=== PATIENT | male | born 1985 | race Caucasian/White ===

== ENCOUNTER 2023-04-24 19:13 | Inpatient (IN) | payer OTHER, SELFPAY ==
[2023-04-24] VITALS (14 sets, daily range): BP systolic 120–128; BP diastolic 63–88; PULSE 113–125; RESP 20–30; TEMP 36.2–36.8; O2SAT 97–100; BMI 36.8; BMI 35.2
--- NOTE | 2023-04-24 19:25 | ED.NAVMDI1 ---
HPI - Nausea/Vomiting/Diarrhea General Chief complaint: Nausea/Vomiting/Diarrhea Stated complaint: vomiting Time Seen by Provider: 04/24/23 19:21 History of Present Illness HPI Narrative: This 38-year-old male who denies tobacco or alcohol use or NSAID use presents for evaluation of nausea and vomiting for the past 4 hours. The patient states that every time he tries to eat or drink anything he throws it up. He is vomiting of black liquid. He denies any dizziness or syncope. He is not having chest pain or shortness of breath. He denies any black tarry stools. EMS noted that the patient had coffee-ground emesis and upon arrival he has vomiting black liquid. He denies that he has eaten anything that is black. The patient states that he is a diabetic. Accu-Chek done by EMS was 129. The patient states he does not feel like he is in DKA and has not been in DKA in a long time. Patient's came to the emergency department and gives dish and all history. She states she talked to him around 11 AM and he stated that he was not feeling well. His vomiting started around 2 PM. His insulin pump stopped working earlier today. He also has a red, swollen and tender left great toe where he appears to have a paronychia that may be infected. The patient states that he cut the toenail back himself approx one week ago. He denies that it is tender. His [employer] is in [place]. Related Data Home Medications Medication Instructions Recorded Confirmed insulin aspart U-100 100 unit/mL See Rx Instructions continuous 04/24/23 04/24/23 subcutaneous solution (Novolog subcutaneous infusion Q6H U-100 Insulin aspart) hyperglycemia venlafaxine 75 mg capsule,extended 75 mg PO DAILY 04/24/23 04/24/23 release 24 hr Allergies Allergy/AdvReac Type Severity Reaction Status Date / Time No Known Drug Allergies Allergy Verified 04/24/23 19:27 Review of Systems ROS Status of ROS 10 or more systems reviewed and unremarkable except as noted in history and below [facility] Medical History (Updated 04/24/23 @ 22:42 by Sarah Beth Cardenas) Depression ?F32.A - Depression, unspecified (ICD-10) Type 1 diabetes mellitus ?E10.9 - Type 1 diabetes mellitus without complications (ICD-10) Social History (Updated 04/24/23 @ 22:48 by Sarah Beth Cardenas) Within the past year, how often did you have a drink containing alcohol: monthly or less Within the past year, how many standard drinks containing alcohol did you have on a typical day: 1 or 2 Within the past year, how often did you have six or more drinks on one occasion: never Total score: 0 Score interpretation: A score less than 4 is consistent with normal alcohol consumption. Smoking status: Never smoker Non-prescribed substance use: denies use Previous occupational history: [employer] Highest level of school completed/degree received: some college, no degree Are you now , , , , never or living with a partner: In a typical week, how many times do you talk on the telephone with family, friends, or neighbors: 3 or more times per week How often do you get together with friends or relatives: once per week How often do you attend adventist or gnosticism services: never Do you belong to any clubs or organizations such as adventist groups unions, [employer] or athletic groups, or school groups: no Total score: 2 Score interpretation: A score of greater than or equal to 2 indicates the lowest level of social isolation. Little interest or pleasure in doing things: not at all Feeling down, depressed, or hopeless: not at all Feel stressed/tense/nervous/anxious/difficulty sleeping: not at all Do you think of yourself as: straight/heterosexual Gender Identity: male Exam Narrative Exam Narrative: Nurses note and vital signs reviewed and patient is not hypoxic.His temperature is low at 97.1 and he is tachycardic at 113 General: Nontoxic but uncomfortable appearing male, he is actively vomiting with black and coffee ground emesis, no respiratory distress Skin: Warm, dry, no pallor noted. No rash noted. Head: Normocephalic, atraumatic Eye: Normal conjunctiva, no drainage, EOMI. PERRL. No scleral icterus. Ears, Nose, Mouth, and Throat; No swelling of the tongue, uvula or pharyngeal soft tissues Cardiovascular: Regular Rate and Rhythm Tachycardic at 113 upon arrival, pulses are brisk and equal bilaterally Respiratory: Patient is in no distress, no accessory muscle use, lungs are clear to auscultation, no wheezing, rales or rhonchi Back: non-tender, no CVA tenderness bilaterally to percussion. GI: Hyeractive bowel sounds with active vomiting of black liquid Musculoskeletal: The patient has no evidence of calf tenderness, no pitting edema, symmetrical pulses noted bilaterally, there is redness to the left medial great toe where the patient has cut his toenail back due to an ingrown toenail, There is no redness on the foot or lymphangitic streaks up the left leg Neurological: A&O x4, normal speech Psychiatric: Cooperative Constitutional Vital Signs, click to edit/add: Last Vital Signs Temp 98.2 F 04/24/23 21:51 Pulse 123 H 04/25/23 00:08 Resp 24 04/24/23 23:12 BP 124/72 04/24/23 23:41 Pulse Ox 97 04/24/23 23:12 O2 Del Method Room Air 04/24/23 23:12 Course Vital Signs Vital signs: Vital Signs Blood Pressure 120/88 04/24/23 19:15 Temperature 98.2 F 04/24/23 21:51 Pulse Rate 123 H 04/25/23 00:08 Respiratory Rate 04/24/23 23:12 Blood Pressure 124/72 04/24/23 23:41 Pulse Oximetry 97 04/24/23 23:12 Oxygen Delivery Method Room Air 04/24/23 23:12 MDM - Nausea/Vomiting/Diarrhea MDM Narrative Medical decision making narrative: This 38-year-old male who is an insulin-dependent diabetic presents for evaluation of 5 hours of nausea and vomiting. Upon arrival he was actively vomiting with black and coffee ground emesis. The patient's insulin pump stopped working earlier today according to the patient and his . An Accu-Chek done upon arrival was read as high. An IV was placed and he was medicated with IV fluids, Zofran and 40 mg of IV protonix. In reevaluation he was still vomiting. He has not had any chest pain or shortness of breath. He does have what appears to be a paronychia of the left great toe. There is no other sign of infection. He has a white count of 25. Normal hemoglobin. His pH is acidotic at 7.026. Glucose on the chemistry panel was 733. His bicarbonate is low at With an anion gap of 35. He has an acute kidney injury with a BUN of 7 and creatinine of 2.26 and elevated potassium at 6.7. He has a normal lipase.EKG is a sinus tachycardia at 114 bpm with mildly peaked T waves in leads V3 V4 V5 and V6. Troponin was normal at 9.9. He was started on an insulin drip and given copious IV fluids. He was medicated for the hyperkalemia with IV insulin, bicarbonate and calcium gluconate. At this time he will not be able to tolerate Kayexalate due to the nausea and vomiting. The patient has not had a fever or cough. He does have a paronychia of the left great toe that he states he has had for approximately one week. He cut the nail himself and it does appear to be mildly infected. He was given Unasyn for this infection. 2 sets of blood cultures are pending at this time. His nausea and vomiting improved prior to going to the ICU and he was able to tolerate ice chips The case was discussed with the hospitalist and he is accepted for admission to the ICU Lab Data Labs: Lab Results 04/24/23 Range/Units 19:30 WBC 25.5 H (4.0-11.0) 10^3/uL RBC 4.68 L (4.70-6.10) 10^6/uL Hgb 13.8 L (14.0-18.0) g/dL Hct 43.9 (42.0-54.0) % MCV 93.8 (80.0-94.0) fL MCH 29.5 (25.9-34.0) pg MCHC 31.4 (29.9-35.2) g/dL RDW 11.5 (11.0-15.0) % Plt Count 361 (150-450) 10^3/uL MPV 11.7 (9.5-13.5) fL Seg Neuts % (Manual) 81.0 Band Neutrophils % 3.0 (0-5) % Lymphocytes % (Manual) 5.0 L (20.5-60.0) % Atypical Lymphs % (Man) 2.0 % Monocytes % (Manual) 8.0 (1.7-12.0) % Eosinophils % (Manual) 0.0 L (0.9-7.0) % Basophils % (Manual) 0.0 L (0.2-2.0) % Promyelocytes % 1.0 Neutrophils # (Manual) 20.65 H (1.4-6.5) 10^3/uL Band Neutrophils # 0.8 H (0.0-0.3) 10^3/uL Lymphocytes # (Manual) 1.27 (1.20-3.80) 10^3/uL Abs Atypical Lymphs Man 0.51 Monocytes # (Manual) 2.04 H (0.30-0.80) 10^3/uL Eosinophils # (Manual) 0.00 (0.00-0.70) 10^3/uL Basophils # (Manual) 0.00 (0.00-0.10) 10^3/uL Promyelocytes # 0.25 VBG pH 7.026 L (7.330-7.430) VBG pCO2 34.9 L (40.0-52.0) mmHg Sodium 129 L (136-145) mmol/L Potassium 6.7 H* (3.5-5.1) mmol/L Chloride 90 L (98-107) mmol/L Carbon Dioxide 10.1 L (21.0-32.0) mmol/L Anion Gap 35.6 BUN 47.0 H (7.0-18.0) mg/dL Creatinine 2.26 H (0.70-1.30) mg/dL Est GFR ( Amer) 40 L (>=60) Est GFR (Non-Af Amer) 33 L (>=60) BUN/Creatinine Ratio 20.8 Glucose 733 H* (74-106) mg/dL Lactate 5.1 H* (0.4-2.0) mmol/L Calcium 9.9 (8.5-10.1) mg/dL Total Bilirubin 0.9 (0.2-1.0) mg/dL AST 26 (15-37) U/L ALT 44 (16-63) U/L Alkaline Phosphatase 106 (46-116) U/L Troponin I High Sens 9.9 (4.0-76.1) pg/mL Total Protein 7.7 (6.4-8.2) g/dL Albumin 3.8 (3.4-5.0) g/dL Globulin 3.9 g/dL Albumin/Globulin Ratio 1.0 Lipase 12.0 L (16.0-77.0) U/L Acetone, Qual Moderate A (NEGATIVE) ECG Data Attestation: I personally reviewed and interpreted this ECG as follows: (Sinus tachycardia at 114 beats for minute, normal axis, mildly peaked T waves noted mainly in V3 V4 V5 V6, normal axis, no acute ST segment elevation or T-wave inversion) Discharge Plan Discharge Chief Complaint: Nausea/Vomiting/Diarrhea Clinical Impression: Acute kidney injury, Paronychia due to ingrown nail, DKA (diabetic ketoacidosis), Hyperkalemia Patient Disposition: Admitted As Inpatient Time of Disposition Decision: 20:39 Discharge Date/Time: 04/24/23 21:40 Critical Care Time Critical Care Time Critical Care Time: Yes Total Critical Care Time: 45 Attestation: .
[2023-04-24] MEDS: 0.9 % SODIUM CHLORIDE 1,000 ML 1000 ML IV ×2 (19:36→20:40)
[2023-04-24] MEDS: ONDANSETRON PF 4 MG/2 ML VIAL IV ×2 (19:37→20:34)
[2023-04-24] MEDS: PANTOPRAZOLE SODIUM 40 MG VIAL IV (19:37)
[2023-04-24 19:53] LABS: PCO2 VBG 34.9 mmHg (40.0-52.0); pH VBG 7.026 (7.330-7.430)
--- NOTE | 2023-04-24 19:53 | XR_ITS ---
The [address] [address] Patient Name: OSCAR GAITAN MRN: [id number] date: 1985 Sex: M Assigned Patient Location: ICU Current Patient Location: ICU Accession/Order Number: [id number] Exam Date: 04/24/2023 21:30 Report Date: 04/24/2023 22:13 At the request of: DARWIN MARKER Procedure: XR acute abdomen series EXAM: XR acute abdomen series REASON FOR EXAM: Male, 38 years, DKA. TECHNIQUE: Supine and upright views of the abdomen and pelvis are performed, single frontal view of the chest is performed. COMPARISON: None. FINDINGS: The lungs are underinflated. There is crowding of the bronchovascular markings. No focal consolidation. Normal pleura. Cardiac monitoring leads overlie the chest. There is elevation of the right hemidiaphragm. Normal size heart. Normal mediastinum and marianne. Normal visualized pulmonary arteries. Normal visualized aortic arch and descending thoracic aorta. Normal visualized thoracic spine. Normal visualized ribs, clavicles, and shoulders. There is a normal abdominal gas pattern. There is scattered stool throughout the colon. There is no demonstrated free abdominal air. The visualized liver, spleen, and kidneys are grossly normal in size and morphology. Normal soft tissues. Normal osseous structures. XR/XR acute abdomen series IMPRESSION: Low lung volumes without focal consolidation. Nonobstructive abdominal bowel gas pattern. Electronically authenticated by: DIANA MOTTA Date: 04/24/2023 22:13
[2023-04-24 19:55] LABS: Hematocrit 43.9 % (42.0-54.0); Hemoglobin 13.8 g/dL (14.0-18.0); Mean Corpuscular HGB Conc 31.4 g/dL (29.9-35.2); Mean Corpuscular Hemoglobin 29.5 pg (25.9-34.0); Mean Corpuscular Volume 93.8 fL (80.0-94.0); Mean Platelet Volume 11.7 fL (9.5-13.5); Platelet Count 361 10^3/uL (150-450); Red Blood Count 4.68 10^6/uL (4.70-6.10); Red Cell Distribution Width 11.5 % (11.0-15.0); White Blood Count 25.5 10^3/uL (4.0-11.0)
--- NOTE | 2023-04-24 20:00 | ECG_ITS ---
The [facility] Test Date: 2023-04-24 Pat Name: OSCAR GAITAN Department: Room: [facility] Gender: Male Global [employer]: : 1985 Requested By: [id number] Order Number: [id number] Reading MD: AURELIA JUSTIN Measurements Intervals [place] Rate: 114 P: 77 TX: 136 QRS: 89 QRSD: 112 T: 50 QT: 350 QTc: 418 Interpretive Statements 1120 Sinus tachycardia 2440 Incomplete right bundle branch block 9140 abnormal rhythm ECG No previous ECG available for comparison Electronically Signed On 04-25-2023 7:09:13 EST by AURELIA JUSTIN
[2023-04-24 20:11] LABS: Atypical Lymphocytes Abs Man 0.51; Band Neutrophils Absolute 0.8 10^3/uL (0.0-0.3); Lymphocytes Absolute Manual 1.27 10^3/uL (1.20-3.80); Monocytes Absolute Manual 2.04 10^3/uL (0.30-0.80); Promyelocytes Absolute Manual 0.25; Segmented Neut Absolute Manual 20.65 10^3/uL (1.4-6.5)
[2023-04-24 20:22] LABS: Alanine Aminotransferase 44 U/L (16-63); Albumin Level 3.8 g/dL (3.4-5.0); Alkaline Phosphatase 106 U/L (46-116); Aspartate Amino Transferase 26 U/L (15-37); BUN Creatinine Ratio 20.8; Bilirubin Total 0.9 mg/dL (0.2-1.0); Calcium 9.9 mg/dL (8.5-10.1); Carbon Dioxide 10.1 mmol/L (21.0-32.0); Chloride 90 mmol/L (98-107); Estimated GFR (African America 40 (>=60); Estimated GFR (Non-African Ame 33 (>=60); Globulin 3.9 g/dL; Sodium 129 mmol/L (136-145); Total Protein 7.7 g/dL (6.4-8.2)
[2023-04-24 20:23] LABS: Anion Gap 35.6
[2023-04-24 20:25] LABS: Glucose 733 mg/dL (74-106); Potassium 6.7 mmol/L (3.5-5.1); Troponin I High Sensitivity 9.9 pg/mL (4.0-76.1)
[2023-04-24 20:26] LABS: Lactate/Lactic Acid 5.1 mmol/L (0.4-2.0)
[2023-04-24] MEDS: INSULIN REGULAR IN 0.9 % NACL 100 UNIT/100 ML PLAST..BAG 8.845 UNIT IV (20:36)
[2023-04-24] MEDS: AMPICILLIN SODIUM/SULBACTAM NA 3 GM in 0.9 % SODIUM CHLORIDE 100 ML IV (20:41)
[2023-04-24] MEDS: [UNRECOGNIZED DRUG - OTHER] IV (20:47)
[2023-04-24] MEDS: SODIUM BICARBONATE 50 MEQ/50 ML 8.4% - SYRINGE IV (20:47)
[2023-04-24] MEDS: CALCIUM GLUCONATE IV (20:47)
[2023-04-24 21:03] LABS: Acetone MODERATE (NEGATIVE)
[2023-04-24] MEDS: 0.9 % SODIUM CHLORIDE 1,000 ML 150 ML IV (22:26)
[2023-04-24] MEDS: ENOXAPARIN SODIUM 40 MG/0.4 ML SYRINGE SUBQ (22:26)
[2023-04-24 22:58] LABS: Glucose 588 mg/dL (74-106)
[2023-04-24 23:45] LABS: PCO2 VBG 30.1 mmHg (40.0-52.0); pH VBG 7.195 (7.330-7.430)
[2023-04-24 23:58] LABS: BUN Creatinine Ratio 24.1; Calcium 9.2 mg/dL (8.5-10.1); Carbon Dioxide 14.1 mmol/L (21.0-32.0); Chloride 99 mmol/L (98-107); Estimated GFR (African America 46 (>=60); Estimated GFR (Non-African Ame 38 (>=60); Glucose 493 mg/dL (74-106); Potassium 5.1 mmol/L (3.5-5.1); Sodium 136 mmol/L (136-145)
[2023-04-25] VITALS (9 sets, daily range): BP systolic 119; BP diastolic 67; PULSE 100–123; RESP 14; TEMP 36.4; O2SAT 97; BMI 24.6
[2023-04-25] MEDS: ONDANSETRON PF 4 MG/2 ML VIAL IV (02:43)
[2023-04-25] MEDS: 0.9 % SODIUM CHLORIDE 1,000 ML 150 ML IV (04:27)
[2023-04-25 04:54] LABS: Basophils Absolute Auto 0.1 10^3/uL (0.0-0.1); Basophils Percent Auto 0.2 % (0.2-2.0); Hematocrit 36.4 % (42.0-54.0); Hemoglobin 12.2 g/dL (14.0-18.0); Immature Granulocytes Abs Auto 0.22 10^3/uL (0.00-0.03); Lymphocytes Absolute Auto 2.8 10^3/uL (1.2-3.8); Lymphocytes Percent Auto 12.3 % (20.5-60.0); Mean Corpuscular HGB Conc 33.5 g/dL (29.9-35.2); Mean Corpuscular Hemoglobin 29.4 pg (25.9-34.0); Mean Corpuscular Volume 87.7 fL (80.0-94.0); Monocytes Absolute Auto 1.9 10^3/uL (0.3-0.8); Monocytes Percent Auto 8.6 % (1.7-12.0); Neutrophils Absolute Auto 17.5 10^3/uL (1.4-6.5); Neutrophils Percent Auto 77.9 % (43.0-75.0); Platelet Count 321 10^3/uL (150-450); Red Blood Count 4.15 10^6/uL (4.70-6.10); Red Cell Distribution Width 11.5 % (11.0-15.0); White Blood Count 22.5 10^3/uL (4.0-11.0)
[2023-04-25] MEDS: DEXTROSE 5%-0.9% NACL 1,000 ML IV.SOLN 125 ML IV (06:30)
[2023-04-25 07:29] LABS: Basophils Absolute Auto 0.1 10^3/uL (0.0-0.1); Basophils Percent Auto 0.2 % (0.2-2.0); Hematocrit 35.1 % (42.0-54.0); Hemoglobin 11.7 g/dL (14.0-18.0); Immature Granulocytes Abs Auto 0.21 10^3/uL (0.00-0.03); Lymphocytes Absolute Auto 2.7 10^3/uL (1.2-3.8); Lymphocytes Percent Auto 12.1 % (20.5-60.0); Mean Corpuscular HGB Conc 33.3 g/dL (29.9-35.2); Mean Corpuscular Hemoglobin 29.4 pg (25.9-34.0); Mean Corpuscular Volume 88.2 fL (80.0-94.0); Mean Platelet Volume 10.6 fL (9.5-13.5); Monocytes Percent Auto 9.2 % (1.7-12.0); Neutrophils Absolute Auto 17.1 10^3/uL (1.4-6.5); Neutrophils Percent Auto 77.5 % (43.0-75.0); Platelet Count 304 10^3/uL (150-450); Red Blood Count 3.98 10^6/uL (4.70-6.10); Red Cell Distribution Width 11.5 % (11.0-15.0); White Blood Count 22.1 10^3/uL (4.0-11.0)
[2023-04-25 07:41] LABS: Alanine Aminotransferase 34 U/L (16-63); Albumin Globulin Ratio 0.9; Alkaline Phosphatase 74 U/L (46-116); Anion Gap 15.6; Aspartate Amino Transferase 18 U/L (15-37); BUN Creatinine Ratio 23.1; Bilirubin Total 0.5 mg/dL (0.2-1.0); Calcium 8.8 mg/dL (8.5-10.1); Carbon Dioxide 21.8 mmol/L (21.0-32.0); Chloride 108 mmol/L (98-107); Estimated GFR (African America 50 (>=60); Estimated GFR (Non-African Ame 41 (>=60); Globulin 3.3 g/dL; Glucose 148 mg/dL (74-106); Potassium 4.4 mmol/L (3.5-5.1); Sodium 141 mmol/L (136-145); Total Protein 6.3 g/dL (6.4-8.2)
--- NOTE | 2023-04-25 09:39 | CM.NOTE ---
Rounding with Dr. Obregon. to bring in advanced manager for insulin pump as patient states that was the issue. We want to verify this was the issue. Pt. sitting up in chair stating he feels much better this morning. discussed rechecking labs and starting a clear liquid diet. No identified discharge needs at this time. Discussed possible discharge later today if continues to feel better.
[2023-04-25] MEDS: PIPERACILLIN SODIUM/TAZOBACTAM 3.375 GM in 0.9 % SODIUM CHLORIDE 50 ML IV (10:52)
--- NOTE | 2023-04-25 11:37 | PM.HP ---
H&P: HPI History of Present Illness Chief complaint: vomiting DKA HYPERKALEMIA Narrative: 38 y/o male with history of DM1 on insulin pump to ER with nausea and vomiting. C/o symptoms all day and noted black emesis. Not able to eat or drink. Patient at work and forgot the virtual customer assistant for his insulin pump and it stopped working. Not able to keep down liquids and called EMS. Glucose initially 129 by squad and to ER. In ER glucometer read high and started IV fluids. Labs showed glucose 733 and elevated anion gap of 29. Started insulin drip. WBC elevated at 25 and patient reported redness to left great toe and ingrown toenail for several days. Started to have drainage and redness. Given dose unasyn and admitted. Quickly improved overnight. Anion gap improved with IV fluids and insulin drip. Anion gap mildly elevated at 11 and glucose under 200. Fluids changed to D5 NS. No further nausea or emesis. Review of Systems ROS Constitutional Denies: fever, chills or fatigue Cardiovascular Denies: chest pain, palpitations or edema Respiratory Denies: shortness of breath, cough or wheezing Gastrointestinal Reports: nausea and vomiting; Denies: abdominal pain or diarrhea Genitourinary Denies: painful urination [facility] Medical History (Updated 04/25/23 @ 09:01 by Yovani Obregon MD) DKA (diabetic ketoacidosis) ?E11.10 - Type 2 diabetes mellitus with ketoacidosis without coma (ICD-10) Depression ?F32.A - Depression, unspecified (ICD-10) Type 1 diabetes mellitus ?E10.9 - Type 1 diabetes mellitus without complications (ICD-10) Social History (Updated 04/24/23 @ 22:48 by aSrah Beth Cardenas) Within the past year, how often did you have a drink containing alcohol: monthly or less Within the past year, how many standard drinks containing alcohol did you have on a typical day: 1 or 2 Within the past year, how often did you have six or more drinks on one occasion: never Total score: 0 Score interpretation: A score less than 4 is consistent with normal alcohol consumption. Smoking status: Never smoker Non-prescribed substance use: denies use Previous occupational history: [employer] Highest level of school completed/degree received: some college, no degree Are you now , , , , never or living with a partner: In a typical week, how many times do you talk on the telephone with family, friends, or neighbors: 3 or more times per week How often do you get together with friends or relatives: once per week How often do you attend sikhism or sabianism services: never Do you belong to any clubs or organizations such as sikhism groups unions, fraternal or athletic groups, or school groups: no Total score: 2 Score interpretation: A score of greater than or equal to 2 indicates the lowest level of social isolation. Little interest or pleasure in doing things: not at all Feeling down, depressed, or hopeless: not at all Feel stressed/tense/nervous/anxious/difficulty sleeping: not at all Do you think of yourself as: straight/heterosexual Gender Identity: male Meds Home Medications and Allergies Home Medications Medication Instructions Recorded Confirmed Type insulin aspart U-100 100 unit/mL See Rx Instructions continuous 04/24/23 04/25/23 History subcutaneous solution (Novolog subcutaneous infusion Q6H U-100 Insulin aspart) hyperglycemia venlafaxine 75 mg capsule,extended 75 mg PO DAILY 04/24/23 04/24/23 History release 24 hr amoxicillin 875 mg-potassium 1 tab PO Q12H 14 days #28 tabs 04/25/23 Rx clavulanate 125 mg tablet Allergies Allergy/AdvReac Type Severity Reaction Status Date / Time No Known Drug Allergies Allergy Verified 04/24/23 19:27 Exam Constitutional Vital Signs, click to edit/add: Last Vital Signs Temp 97.6 F 04/25/23 04:14 Pulse 122 H 04/25/23 10:00 Resp 14 04/25/23 04:14 BP 119/67 04/25/23 04:14 Pulse Ox 97 04/25/23 04:14 O2 Del Method Room Air 04/25/23 04:14 Documenting provider has reviewed patient's vital signs: yes Common normals: no apparent distress, oriented x3 and alert HENMT Common normals: normocephalic Eye Common normals: PERRL and EOMs intact bilaterally Respiratory Common normals: normal respiratory effort and clear to auscultation bilaterally Cardio Common normals: regular rate, regular rhythm, no gallops, no murmurs and no rub GI Common normals: Normal to inspection, nondistended, normoactive bowel sounds present and non-tender Extremity Common normals: no pedal edema Results Labs Labs: Short CBC 04/24/23 04/25/23 04/25/23 Range/Units 19:30 04:07 07:15 WBC 25.5 H 22.5 H 22.1 H (4.0-11.0) 10^3/uL Hgb 13.8 L 12.2 L 11.7 L (14.0-18.0) g/dL Hct 43.9 36.4 L 35.1 L (42.0-54.0) % Plt Count 361 321 304 (150-450) 10^3/uL BMP 04/24/23 04/24/23 04/24/23 19:30 22:25 23:37 Sodium 129 L 136 Potassium 6.7 H* 5.1 Chloride 90 L 99 Carbon Dioxide 10.1 L 14.1 L BUN 47.0 H 48.0 H Creatinine 2.26 H 1.99 H Glucose 733 H* 588 H* 493 H Calcium 9.9 9.2 04/25/23 07:15 Sodium 141 Potassium 4.4 Chloride 108 H Carbon Dioxide 21.8 BUN 43.0 H Creatinine 1.86 H Glucose 148 H Calcium 8.8 Liver Function 04/24/23 04/25/23 Range/Units 19:30 07:15 Total Bilirubin 0.9 0.5 (0.2-1.0) mg/dL AST 26 18 (15-37) U/L ALT 44 34 (16-63) U/L Alkaline Phosphatase 106 74 (46-116) U/L Albumin 3.8 3.0 L (3.4-5.0) g/dL ABG ABG results: 04/24/23 04/24/23 19:30 23:37 VBG pH 7.026 L 7.195 L VBG pCO2 34.9 L 30.1 L Assessment and Plan Assessment and Plan (1) DM (diabetes mellitus) type 1 with ketoacidosis: (2) Nausea & vomiting: (3) Acute kidney injury: (4) Hyperkalemia: (5) Paronychia due to ingrown nail: Plan Presented with DKA and hyperglycemia and quickly improved with IV fluids and insulin. Nausea resolved and started clear liquid diet. Started zosyn for paronychia. Patient continued to improve. Labs showed normal anion gap. Resumed insulin pump and stopped insulin drip. BS stable. Tolerated liquids and advanced to regular. Discharged home in stable condition. Resume home medication as directed. Take augmentin for toe and likely will need to see podiatry. Soak toe in [facility].
[2023-04-25 11:52] LABS: Anion Gap 11.5; BUN Creatinine Ratio 24.4; Calcium 8.1 mg/dL (8.5-10.1); Carbon Dioxide 24.5 mmol/L (21.0-32.0); Chloride 109 mmol/L (98-107); Estimated GFR (African America 60 (>=60); Estimated GFR (Non-African Ame 49 (>=60); Glucose 150 mg/dL (74-106); Sodium 141 mmol/L (136-145)
== END 2023-04-25 14:39 | disposition home or self-care (01) | DRG 638 ==
LOC: ER 20:56 → ICU 21:34
PROVIDERS: Nurse Practitioner Acute Care; Admitting Provider Family Medicine; Emergency Provider Emergency Medicine; Visit Provider Family Medicine
DX: E10.10 Type 1 diabetes mellitus with ketoacidosis without coma (principal); N17.9 Acute kidney failure, unspecified; T85.614A Breakdown (mechanical) of insulin pump, initial encounter; T38.3X6A Underdosing of insulin and oral hypoglycemic [antidiabetic] drugs, initial encounter; E87.5 Hyperkalemia; L03.032 Cellulitis of left toe; F32.A Depression, unspecified; R11.2 Nausea with vomiting, unspecified; R94.31 Abnormal electrocardiogram [ECG] [EKG]; Z79.4 Long term (current) use of insulin; Z79.899 Other long term (current) drug therapy; Z96.41 Presence of insulin pump (external) (internal)
CPT/HCPCS: 36415; 36416; 74022; 80048; 80053; 81001; 82009; 82800; 82947; 82948; 83605; 83690; 83735; 84484; 85025; 85027; 87040; 93005; 96361; 96365; 96366; 96367; 96372; 96375; 96376; 99285; J0295; J0613; J1650; J2405; J2543

== ENCOUNTER 2024-12-09 01:08 | Emergency (ER) | payer OTHER, SELFPAY ==
[2024-12-09] VITALS (15 sets, daily range): BP systolic 130–132; BP diastolic 70–79; PULSE 102–116; TEMP 36.6; O2SAT 93–99; BMI 37.8
--- OUTSIDE RECORDS SUMMARY | 2024-12-09 01:17 | XMS_ITS | CCD ---
Author Organization [facility] Care Team Providers Care Lpn Name Role Phone Francia Ferguson Primary Care Provider FRANCIA JETT Referring Unavailable FRANCIA JETT Primary Care Unavailable MIKE GARCÍA Referring Unavailable FRANCIA JETT Primary Care Unavailable FRANCIA JETT Referring Unavailable FRANCIA JETT Primary Care Unavailable FRANCIA JETT Attending Unavailable FRANCIA JETT Referring Unavailable FRANCIA JETT Primary Care Unavailable FRANCIA JETT Attending Unavailable FRANCIA JETT Referring Unavailable FRANCIA JETT Primary Care Unavailable PEARL CARVALHO Attending Unavailable FRANCIA JETT Referring Unavailable FRANCIA JETT Primary Care Unavailable PEARL CARVALHO Referring Unavailable FRANCIA JETT Primary Care Unavailable Francia Ferguson Primary Care Provider Medications Current Medications Medication Drug Class(es) Dates Sig (Normalized) Sig (Original) atorvastatin 10 mg oral tablet (4 sources) HMG-CoA Reductase Inhibitor Start: 06-09-2024 take 1 tablet by mouth in the morning atorvastatin (LIPITOR) 10 mg tablet Take 1 tablet (10 mg total) by mouth in the morning. 30 tablet 11 06/09/2024 Active DEXCOM G6 SENSOR device (8 sources) Start: 06-06-2023 DEXCOM G6 SENSOR device 06/06/2023 Active Start: 06-06-2023 DEXCOM G6 SENS OR device DEXCOM G6 TRANSMITTER device (8 sources) Start: 06-05-2023 DEXCOM G6 CASTANEDA SMITTER device USE ONE EVERY 3 MONTHS 06/05/2023 Active Start: 06-05-2023 DEXCOM G6 CASTANEDA SMITTER device USE ONE EVERY 3 MONTHS 0 06/05/2023 Active Start: 06-05-2023 DEXCOM G6 CASTANEDA SMITTER device USE ONE EVERY 3 MONTHS 0 06/05/2023 Suspended Start: 06-05-2023 DEXCOM G6 CASTANEDA SMITTER device USE ONE EVERY 3 MONTHS 0 06/05/2023 0.4 ml enoxaparin sodium 100 mg/ml prefilled syringe (1 source) Low Molecular Weight Heparin Start: 06-16-2023 enoxaparin (LOVENOX) syringe 40 mg glucagon (rdna) 1 mg injection (1 source) Antihypoglycemic Agent Start: 06-15-2023 glucago n HCL injection 1 mg 150 ml glucose 50 mg/ml injection (3 sources) Start: 06-15-2023 dextrose (GLUT OSE) 40 % gel 15 g Start: 06-15-2023 dextrose 50 % in water (D50W) 50% solution 25 mL Start: 06-15-2023 dextrose 5 % ( D5W) infusion 500 ml glucose 50 mg/ml / potassium chloride 0.02 meq/ml / sodium chloride 4.5 mg/ml injection (1 source) Start: 06-16-2023 dextrose 5 % and sodium chloride 0.45 % with KCl 20 mEq/L infusion 3 ml insulin glargine 100 unt/ml pen injector (10 sources) Insulin Analog Start: 06-17-2023 inject 16 [IU] by subcutaneous injection in the morning insulin glargine (LANTUS, SEMGLEE) 100 unit/mL (3 mL) insulin pen Inject 16 Units under the skin in the morning and 16 Units before bedtime. 15 mL 12 06/17/2023 Active Start: 06-16-2023 End: 06-17-2023 insulin glargine (LANTUS, SE MGLEE) injection pen 12 Units 3 ml insulin lispro 100 unt/ml pen injector (14 sources) Insulin Analog Start: 06-17-2023 insulin lispro (HumaLOG) injection 2-8 Units Start: 06-16-2023 End: 06-17-2023 insulin lispro (HumaLOG) inj ection 2-10 Units Start: 06-05-2023 insulin lispro (HumaLOG) 100 unit/mL injection Up to 133 units daily via pump 06/05/2023 Active magnesium sulfate IVPB 2000 mg/50 mL in iso-osmotic water (40 mg/mL premix) (1 source) Start: 02-23-2024 magnesium sulfate IVPB 2000 mg/50 mL in iso-osmotic water (40 mg/mL premix) metoprolol tartrate 50 mg oral tablet (2 sources) beta-Adrenergic Crystal Start: 06-10-2024 metoprolol tartrate (LOPRESSOR) 50 mg tablet Take 1 tablet (50 mg total) by mouth as needed (Take 1 tablet (50mg total) [address] and 1 table (50mg total) [address] 2 tablet 06/10/2024 Active omeprazole 20 mg delayed release oral capsule (5 sources) Proton Pump Inhibitor Start: 05-21-2024 take 1 capsule by mouth in the morning omeprazole (PriLOSEC) 20 mg capsule Indications: Nausea and vomiting, unspecified vomiting type Take 1 capsule (20 mg total) by mouth in the morning. 90 capsule 05/21/2024 Active Potassium Chloride (1 source) Start: 06-15-2023 potassium chloride (K-TAB,KLOR-CON) CR tablet 20-50 mEq potassium chloride IVPB 10 mEq/50 mL in water (0.2 mEq/mL premix) (1 source) Start: 06-15-2023 potassium chloride IVPB 10 mEq/50 mL in water (0.2 mEq/mL premix) Prochlorperazine (1 source) Phenothiazine Start: 06-15-2023 take 1 tablet by mouth every six hours as needed for nausea and vomiting prochlorperazine (COMPAZINE) tablet 5 mg 1000 ml sodium chloride 9 mg/ml injection (5 sources) Start: 06-16-2023 End: 06-16-2023 sodium chloride 0.45 % infusion Start: 06-15-2023 End: 06-15-2023 sodium chloride 0.9 % infusi on sodium phosphate 20 mmol in sodium chloride 0.9 % 250 mL IVPB (1 source) Start: 06-15-2023 sodium phosphate 20 mmol in sodium chloride 0.9 % 250 mL IVPB 24 hr venlafaxine 75 mg extended release oral capsule (9 sources) Serotonin and Norepinephrine Reuptake Inhibitor Start: 09-27-2022 End: 06-21-2023 take 1 capsule by mouth every twenty-four hours in the morning venlafaxine XR (EFFEXOR XR) 75 mg 24 hr capsule Indications: Moderate major depression (CMS-HCC) , MALIK (generalized anxiety disorder) Take 1 capsule (75 mg total) by mouth in the morning. 90 capsule 1 06/21/2023 Active Completed/Discontinued Medications Medication Drug Class(es) Dates Sig (Normalized) Sig (Original) albuterol 0.83 mg/ml inhalation solution (1 source) beta2-Adrenergic Agonist Start: 06-16-2023 End: 06-16-2023 albuterol (PROVENTIL,VENTOLI N) 2.5 mg /3 mL (0.083 %) nebulizer solution - Pyxis Override Pull 100 ml calcium gluconate 20 mg/ml injection (2 sources) Start: 06-16-2023 End: 06-16-2023 calcium gluconate IVPB 2000 mg/100 mL (20 mg/mL premix) Start: 06-15-2023 calcium glucon ate IVPB 1000 mg/50 mL (20 mg/mL premix) insulin aspart, human 100 unt/ml injectable solution (1 source) Insulin Analog Start: 05-25-2020 End: 06-16-2023 NovoLOG U-100 Insulin aspart 100 unit/mL injection Use up to 100 units daily via pump 0 05/25/2020 06/16/2023 Discontinued (Therapy completed) 100 ml insulin, regular, human 1 unt/ml injection (1 source) Insulin Start: 06-15-2023 End: 06-16-2023 insulin regular (MYXREDLIN) infusion 100 units/100 mL in sodium chloride 0.9% (1 unit/mL premix) 2 ml metoclopramide 5 mg/ml injection (1 source) Dopamine-2 Receptor Antagonist Start: 06-15-2023 End: 06-15-2023 metoclopramide (REGLAN) injection 10 mg 2 ml ondansetron 2 mg/ml injection (9 sources) Serotonin-3 Receptor Antagonist Start: 06-15-2023 End: 06-15-2023 ondansetron (PF) (ZOFRAN) injection 4 mg Start: 06-06-2023 take 1 tablet by soham th every eight hours as needed for nausea ondansetron ODT (ZOFRAN ODT) 4 mg disintegrating tablet Dissolve 1 tablet (4 mg total) on tongue every 8 (eight) hours as needed for nausea for up to 10 doses. 10 tablet 06/06/2023 Active 1000 ml potassium chloride 0 .02 meq/ml / sodium chloride 4.5 mg/ml injection (1 source) Start: 06-16-2023 End: 06-16-2023 sodium chloride 0.45 % with KCl 20 mEq/L infusion vancomycin (VANCOCIN) IVPB 1 750 mg in 500 mL sodium chloride 0.9% (CMPD premix) (1 source) Start: 06-16-2023 End: 06-16-2023 vancomycin (VANCOCIN) IVPB 1 750 mg in 500 mL sodium chloride 0.9% (CMPD premix) Problems Active Problems Problem Classification Problem Date Documented Date Episodic/Chronic Anxiety disorders (9 sources) Generalized anxiety disorder; Translations: [Generalized anxiety disorder] Onset: 02-19-2020 02-19-2020 Chronic Cataract (7 sources) Cataract of left eye; Translations: [Unspecified cataract] Onset: 06-29-2021 06-29-2021 Chronic Diabetes mellitus with complications (20 sources) Type 1 diabetes mellitus uncontrolled; Translations: [Type 1 diabetes mellitus with hyperglycemia] Onset: 01-09-2019 Resolved: 06-25-2019 01-09-2019 Chronic Essential hypertension (7 sources) Essential hypertension; Translations: [Essential (primary) hypertension] Onset: 06-29-2021 06-29-2021 Chronic Immunizations and screening for infectious disease (2 sources) Vaccination needed; Translations: [Encounter for immunization] Onset: 05-21-2024 05-21-2024 Episodic Mood disorders (9 sources) Moderate major depression ; Translations: [Major depressive disorder, single episode, moderate] Onset: 02-19-2020 02-19-2020 Chronic Nausea and vomiting (3 sources) Nausea and vomiting; Translations: [Nausea with vomiting, unspecified] Onset: 05-21-2024 05-21-2024 Episodic Nonspecific chest pain (7 sources) Chest pain, unspecified; Translations: [Chest pain] Onset: 06-10-2024 06-10-2024 Episodic Other liver diseases (7 sources) Lesion of liver; Translations: [Liver disease, unspecified] Onset: 01-13-2019 2019 Chronic Other male genital disorders (7 sources) Male erectile dysfunction, unspecified; Translations: [Impotence of organic origin] Onset: 02-24-2019 02-24-2019 Chronic Other screening for suspected conditions (not mental disorders or infectious disease) (9 sources) Abnormal result of other cardiovascular function study; Translations: [Cardiovascular stress test abnormal] Onset: 06-09-2024 06-09-2024 Episodic Residual codes; unclassified (8 sources) FH: Myocardial infarction; Translations: [Family history of ischemic heart disease and other diseases of the circulatory system] Onset: 06-10-2024 05-21-2024 Episodic Residual codes; unclassified (3 sources) Family history of ischemic heart disease and other diseases of the circulatory system; Translations: [Family history of ischemic heart disease and other diseases of the circulatory system] Onset: 06-06-2024 Episodic Unclassified (1 source) New Patient Onset: 06-10-2024 Unclassified (1 source) Regular check up Onset: 05-21-2024 Unclassified (1 source) Transition Of Care Onset: 06-21-2023 Past or Other Problems Problem Classification Problem Date Documented Da te Episodic/Chronic Deficiency and other anemia (7 sources) Normocytic anemia; Translations: [Anemia, unspecified] Onset: 01-09-2019 01-09-2019 Episodic Diseases of white blood cells (7 sources) Leukocytosis; Translations: [Elevated white blood cell count, unspecified] Onset: 01-09-2019 Resolved: 01-12-2019 01-12-2019 Chronic Fluid and electrolyte disorders (14 sources) Lactic acidosis; Translations: [Lactic acidosis] Onset: 01-09-2019 Resolved: 2019 01-12-2019 Episodic Mood disorders (7 sources) Mood disorders Onset: 06-21-2023 Resolved: 05-21-2024 05-21-2024 Other and unspecified benign neoplasm (8 sources) Hemangioma of liver; Translations: [Hemangioma of intra-abdominal structures] Onset: 02-17-2019 07-04-2019 Episodic Other and unspecified benign neoplasm (1 source) Hemangioma of intra-abdominal structures; Translations: [Hemangioma of intra-abdominal structures] Onset: 07-04-2019 Episodic Other connective tissue disease (7 sources) Adhesive capsulitis of right shoulder; Translations: [Adhesive capsulitis of right shoulder] Onset: 06-28-2020 06-28-2020 Episodic Other connective tissue disease (7 sources) Adhesive capsulitis of left shoulder; Translations: [Adhesive capsulitis of left shoulder] Onset: 06-28-2020 07-28-2020 Episodic Other connective tissue disease (7 sources) Rhabdomyolysis; Translations: [Rhabdomyolysis] Onset: 01-12-2019 Resolved: 06-25-2019 06-25-2019 Episodic Other diseases of kidney and ureters (7 sources) Hydronephrosis; Translations: [Unspecified hydronephrosis] Onset: 01-13-2019 01-13-2019 Episodic Other nervous system disorders (7 sources) Disorder of brain; Translations: [Encephalopathy, unspecified] Onset: 01-09-2019 Resolved: 2019 2019 Chronic Other nutritional; endocrine; and metabolic disorders (7 sources) Hypomagnesemia; Translations: [Hypomagnesemia] Onset: 01-12-2019 Resolved: 2019 2019 Chronic Other nutritional; endocrine; and metabolic disorders (9 sources) Body mass index 25-29 - overweight; Translations: [Overweight] Onset: 02-24-2019 05-21-2024 Episodic Other nutritional; endocrine; and metabolic disorders (1 source) Overweight; Translations: [Overweight] Onset: 02-24-2019 Episodic Residual codes; unclassified (7 sources) Chews tobacco ; Translations: [Tobacco use] Onset: 2019 2019 Episodic Unclassified (7 sources) Onset: 06-21-2023 Resolved: 05-21-2024 05-21-2024 Results Test Name Value Interpretation Reference Range Facility CT CTA COR ARTERIES W OR WO SCORINGon 07-01-2024 CT CTA COR ARTERIES W OR WO SCORING CT CTA COR ARTERIES W OR WO SCORING CLINICAL INFORMATION: High CAD risk, abnormal ECG, family history of myocardial infarction, chest pain. TECHNIQUE: Computed tomography (CT) of the heart was obtained using electrocardiography (ECG) triggering. 100 mL of Omni 350 contrast was administered intravenously. In preparation for the examination, the patient received 0.4 mg sublingual nitroglycerin tablet for coronary vasodilation. There were no complications 3-D volume rendered maximum intensity projection images were generated and reviewed under concurrent physician supervision on an independent workstation.. No FFR performed. All CT scans at this facility use dose modulation, iterative reconstruction, and/or weight based dosing when appropriate to reduce radiation dose to as low as reasonably achievable. COMPARISON: No relevant prior studies available. EXTRACARDIAC FINDINGS: The visualized lungs and mediastinum are within normal limits. Images of the upper abdomen demonstrate a left hepatic lobe hemangioma measuring up to 3.7 cm. The pulmonary arteries are normal. The visualized thoracic aorta is normal. CARDIAC MORPHOLOGY: The right atrium is normal. The right ventricle is normal. The left atrium is normal. The left ventricle is normal. Valves are unremarkable. The pericardium is normal CALCIUM SCORE: Agatston Score: The total (aggregate) calcium score using the AJ-130 method is 0. Total volume score is 0. N/A% of similar patients have less coronary artery calcium {this is reported using the interactive BECKER form found at [email or web address].becker-nhlbi.o rg} Individual major vessel AJ-130 scores are: LM = 0 LAD = 0 LCX = 0 RCA/PDA = 0 Other = [address] Angiogram: The overall quality of the CT angiographic examination is excellent. . Coronary Artery Angiogram Findings: Stenoses are reported as maximum percentage diameter stenosis. Stenosis grading is reported using the following scheme: Normal: no stenosis Mild: 1-49% stenosis Moderate: 50-70% stenosis Severe: >70% stenosis Occluded The coronary artery system is right dominant with normal origins. The LM has no stenosis with no plaque. The proximal LAD and first diagonal branch (D1) have no stenosis with no plaque. The mid-distal LAD, D2 and D3 branches) have no stenosis with no plaque. The LCx and its obtuse marginal (OM) left posterior descending artery (LPDA)/left posterolateral (LPL) branches have no stenosis with no plaque. The RCA and acute marginal and right posterior descending artery (RPDA)/right posterolateral {RPL} branches have no stenosis with no plaque. IMPRESSION: No coronary artery stenosis or occlusion. Total calcium score of 0; 0% of similar patients have less coronary artery calcium. No FFR performed. The coronary arteries and cardiac structures were co-interpreted by Dr. Luke of the department of radiology and Dr. Ma of department of cardiology. The extracardiac structures including the lungs were solely interpreted by Dr. Luke of the department of radiology. Calcium Score interpretation and guidelines for asymptomatic individuals, 45 - 75 years of age are as follows: Estimated Risk of a Total Score Relative Risk Coronary Event Each Year 0 very low risk 2 per 1000 1-10 low risk 5 per 1000 11-100 intermediate risk 5 to 20 per 1000 101-400 moderately high risk more than 2 per 100 over 400 high risk between 2 and 5 per 100; approximately 15% chance of significant blockages; consideration should be given to obtaining stress echo or stress nuclear testing. Approved by Resident: Cirilo Rome DO on 07/01/2024 4:21 PM I, Amarjit Luke MD have personally reviewed the image(s) and agree with and/or edited the report Finalized by Amarjit Luke MD on 07/01/2024 4:37 PM Normal [facility] Creatinine (Bld) [Mass/Vol]o n 07-01-2024 Creatinine [Mass/Vol] 1.1 mg/dL Normal 0.7-1.2 [facility] Comment on above: Result Comment: METH OD TRACEABLE TO IDMS STANDARD Performed By: #### 3 8483-4 #### [facility] ([id number]) [address] [place] [address], GFR/1.73 sq M.predicted among non-blacks MDRD (S/P/Bld) [Vol rate/Area] 89 mL/min/{1.73_m2} Normal >59 [facility] Comment on above: Result Comment: Reported eGFR is based on the CKD-EPI 2020 equation that does not use a race coefficient. Performed By: #### 3 8483-4 #### [facility] ([id number]) [address] [place], CBC AND AUTO DIFFon 05-14-19 25 ABSOLUTE BASOPHIL 0.0 X10E9/L Normal 0.0-0.2 [facility] Comment on above: Performed By: #### C JOHNATHAN, 69715-1, CBCA #### [facility] ([id number]) [address], [address] [place] [address] ABSOLUTE NEUTROPHIL 2.6 X10E9/L Normal 1.5-6.6 [facility] Comment on above: Performed By: #### C JOHNATHAN, 89010-0, CBCA #### [facility] ([id number]) [address], [address] [place] [address] Basophils/100 WBC (Bld) 0.7 % Normal [facility] Comment on above: Performed By: #### C JOHNATHAN, 01982-8, CBCA #### [facility] ([id number]) [address], [address] [place] [address] Eosinophils (Bld) [#/Vol] 0.2 10*3/uL Normal 0.0-0.4 [facility] Comment on above: Performed By: #### Cheyenne MANN, 74707-5, CBCA #### [facility] ([id number]) [address], [address] [place] [address] Eosinophils/100 WBC (Bld) 3.4 % Normal [facility] Comment on above: Performed By: #### C JOHNATHAN, 23712-9, CBCA #### [facility] ([id number]) [address], [address] [place] [address] Erythrocyte distribution width (RBC) [Ratio] 12.8 % Normal 11.5-15.0 [facility] Comment on above: Performed By: #### C JOHNATHAN, 02799-5, CBCA #### [facility] ([id number]) [address], [address] [place] [address] Hematocrit (Bld) [Volume fraction] 42.0 % Normal 39-49 [facility] Comment on above: Performed By: #### Cheyenne MANN, 77242-7, CBCA #### [facility] ([id number]) [address], [address] [place] [address] Hemoglobin (Bld) [Mass/Vol] 14.0 g/dL Normal 13.0-17.0 [facility] Comment on above: Performed By: #### Cheyenne MANN, 63938-0, CBCA #### [facility] ([id number]) [address], [facility] [address] [place] [address] Lymphocytes (Bld) [#/Vol] 3.0 10*3/uL Normal 1.0-3.5 [facility] Comment on above: Performed By: #### Cheyenne MANN, 65427-4, CBCA #### [facility] ([id number]) [address], [address] [place] [address] Lymphocytes/100 WBC (Bld) 47.3 % Normal [facility] Comment on above: Performed By: #### Cheyenne MANN, 17975-1, CBCA #### [facility] ([id number]) [address], [address] [place] [address] MCH (RBC) [Entitic mass] 29.8 pg Normal 27-34 [facility] Comment on above: Performed By: #### Cheyenne MANN, 70740-6, CBCA #### [facility] ([id number]) [address], [address] [place] [address] MCHC (RBC) [Mass/Vol] 33.4 g/dL Normal 32-36 [facility] Comment on above: Performed By: #### C JOHNATHAN, 70906-8, CBCA #### [facility] ([id number]) [address], [address] [place] [address] MCV (RBC) [Entitic vol] 89 fL Normal 80-100 [facility] Comment on above: Performed By: #### C JOHNATHAN, 24489-8, CBCA #### [facility] ([id number]) [address], [address] [place] [address] Monocytes (Bld) [#/Vol] 0.5 10*3/uL Normal 0-0.9 [facility] Comment on above: Performed By: #### Cheyenne MANN, 26823-1, CBCA #### [facility] ([id number]) [address], [address] [place] [address] Monocytes/100 WBC (Bld) 7.2 % Normal [facility] Comment on above: Performed By: #### Cheyenne MANN, 83313-8, CBCA #### [facility] ([id number]) [address], [address] [place] [address] Neutrophils/100 WBC (Bld) 41.4 % Normal [facility] Comment on above: Performed By: #### Cheyenne MANN, 94279-4, CBCA #### [facility] ([id number]) [address], [address] [place] [address] Platelet mean volume (Bld) [Entitic vol] 10.0 fL Normal 7-12 [facility] Comment on above: Performed By: #### Cheyenne MANN, 19221-4, CBCA #### [facility] ([id number]) [address], [address] [place] [address] Platelets (Bld) [#/Vol] 243 10*3/uL Normal 150-450 [facility] Comment on above: Performed By: #### C JOHNATHAN, 95305-9, CBCA #### [facility] ([id number]) [address], [address] [place] [address] RBC COUNT 4.71 X10E12/L Normal 4.10-5.70 [facility] Comment on above: Performed By: #### Cheyenne MANN, 89973-4, CBCA #### [facility] ([id number]) [address], [address] [place] [address] WBC (Bld) [#/Vol] 6.3 10*3/uL Normal 4.0-11.0 [facility] Comment on above: Performed By: #### Cheyenne MANN, 67253-0, CBCA #### [facility] ([id number]) [address], [address] [place] [address] COMPREHENSIVE METABOLIC PANE Crispin 05-14-2024 Albumin [Mass/Vol] 3.9 g/dL Normal 3.2-5.3 [facility] Comment on above: Performed By: #### Cheyenne MANN, 99853-4, CBCA #### [facility] ([id number]) [address], [address] [place] [address] ALP [Catalytic activity/Vol] 54 U/L Normal 39-130 [facility] Comment on above: Performed By: #### Cheyenne MANN, 90589-3, CBCA #### [facility] ([id number]) [address], [address] [place] [address] ALT [Catalytic activity/Vol] 20 U/L Normal 0-40 [facility] Comment on above: Performed By: #### Cheyenne MANN, 03790-9, CBCA #### [facility] ([id number]) [address], [address] [place] [address] Anion gap [Moles/Vol] 6 mmol/L Normal 5-15 [facility] Comment on above: Performed By: #### C JOHNATHAN, 35711-6, CBCA #### [facility] ([id number]) [address] [place] [address] AST [Catalytic activity/Vol] 19 U/L Normal 0-41 [facility] Comment on above: Performed By: #### C JOHNATHAN, 87955-2, CBCA #### [facility] ([id number]) [address], [address] [place] [address] Bilirubin [Mass/Vol] 0.3 mg/dL Normal 0.3-1.2 [facility] Comment on above: Performed By: #### Cheyenne MANN, 01408-8, CBCA #### [facility] ([id number]) [address], [address] [place] [address] Calcium [Mass/Vol] 9.0 mg/dL Normal 8.5-10.5 [facility] Comment on above: Performed By: #### Cheyenne MANN, 13999-3, CBCA #### [facility] ([id number]) [address], [address] [place] [address] Chloride [Moles/Vol] 100 mmol/L Normal 98-109 [facility] Comment on above: Performed By: #### Cheyenne MANN, 39633-9, CBCA #### [facility] ([id number]) [address] [place] [address] CO2 [Moles/Vol] 33 mmol/L High 22-32 [facility] Comment on above: Performed By: #### Cheyenne MANN, 55879-8, CBCA #### [facility] ([id number]) [address] [place] [address] Creatinine [Mass/Vol] 0.97 mg/dL Normal 0.60-1.30 [facility] Comment on above: Result Comment: METH OD TRACEABLE TO IDMS STANDARD Performed By: #### C JOHNATHAN, 12808-3, CBCA #### [facility] ([id number]) [address], [address] [place] [address] eGFR (CKD-EPI) NON-RACE DEPENDENT >90 Normal >59 [facility] Comment on above: Result Comment: Reported eGFR is based on the CKD-EPI 2020 equation that does not use a race coefficient. Performed By: #### C JOHNATHAN, 39498-5, CBCA #### [facility] ([id number]) [address], [address] [place] [address] Glucose [Mass/Vol] 280 mg/dL High 65-99 [facility] Comment on above: Performed By: #### Cheyenne MANN, 12686-4, CBCA #### [facility] ([id number]) [address], [address] [place] [address] Potassium [Moles/Vol] 4.0 mmol/L Normal 3.5-5.0 [facility] Comment on above: Performed By: #### Cheyenne MANN, 99530-4, CBCA #### [facility] ([id number]) [address], [address] [place] [address] Protein [Mass/Vol] 6.4 g/dL Normal 6.0-8.0 [facility] Comment on above: Performed By: #### C JOHNATHAN, 67114-6, CBCA #### [facility] ([id number]) [address], [address] [place] [address] Sodium [Moles/Vol] 139 mmol/L Normal 134-146 [facility] Comment on above: Performed By: #### Cheyenne MANN, 06204-8, CBCA #### [facility] ([id number]) [address], [address] [place] [address] Urea nitrogen [Mass/Vol] 22 mg/dL Normal 5-23 [facility] Comment on above: Performed By: #### Cheyenne MANN, 45009-4, CBCA #### [facility] ([id number]) [address], [address] [place] [address] Lipid 1996 panelon 5 Cholesterol [Mass/Vol] 183 mg/dL Normal 150-200 [facility] Comment on above: Performed By: #### Cheyenne MANN, 79193-5, CBCA #### [facility] ([id number]) [address], [address] [place] [address] Cholesterol in HDL [Mass/Vol] 51 mg/dL Normal >39 [facility] Comment on above: Result Comment: HDL <40 mg/dL - High Risk HDL > or = 40mg/dL- Desirable HDL >60 mg/dL - Negative Risk Performed By: #### Cheyenne MANN, 71026-0, CBCA #### [facility] ([id number]) [address], [address] [place] [address] Cholesterol in LDL [Mass/Vol] 102 mg/dL Normal <130 [facility] Comment on above: Result Comment: LDL <100 mg/dL - Desirable LDL >160 mg/dL - High Risk Performed By: #### Cheyenne MANN, 97489-0, CBCA #### [facility] ([id number]) [address], [address] [place] [address] Cholesterol in VLDL [Mass/Vol] 30 mg/dL Normal 0-30 [facility] Comment on above: Performed By: #### C JOHNATHAN, 71080-1, CBCA #### [facility] ([id number]) [address], [address] [place] [address] CHOLESTEROL:HDL 3.6 Normal 1.0-5.0 [facility] Comment on above: Performed By: #### Cheyenne MANN, 18312-3, CBCA #### [facility] ([id number]) [address], [address] [place] [address] Triglyceride [Mass/Vol] 149 mg/dL Normal 27-150 [facility] Comment on above: Performed By: #### C JOHNATHAN, 80988-8, CBCA #### [facility] ([id number]) [address], [address] [place] [address] MICROALBUMIN - ALBUMIN:CREAT ININE URINE RATIOon 05-14-2024 ALB/CREAT RATIO 18.4 mg/g creat Normal 0.0-30.0 [facility] Comment on above: Performed By: #### M ALBU #### [facility] ([id number]) [address], [address] [place] [address] Albumin DL <= 20 mg/L (U) [Mass/Vol] 1.5 mg/dL Normal 0.0-1.9 [facility] Comment on above: Performed By: #### M ALBU #### [facility] ([id number]) [address], [address] [place] [address] URINE CREAT 81.67 mg/dL Normal [facility] Comment on above: Performed By: #### M ALBU #### [facility] ([id number]) [address], [address] [place] [address] CBC AND AUTO DIFFon 06-21-19 24 ABSOLUTE BASOPHIL 0.0 X10E9/L Normal 0.0-0.2 [facility] Comment on above: Performed By: #### C LESLIE, CRESENCIO, 26343-0, THYR #### [facility] ([id number]) [address], [address] [place] [address] ABSOLUTE NEUTROPHIL 2.3 X10E9/L Normal 1.5-6.6 [facility] Comment on above: Performed By: #### C LESLIE, CRESENCIO, 20584-4, THYR #### [facility] ([id number]) [address], [address] [place] [address] Basophils/100 WBC (Bld) 0.5 % Normal [facility] Comment on above: Performed By: #### C LESLIE, CMP, 85865-5, THYR #### [facility] ([id number]) [address], [address] [place] [address] Eosinophils (Bld) [#/Vol] 0.1 10*3/uL Normal 0.0-0.4 [facility] Comment on above: Performed By: #### C CRESENCIO NELSON, 29938-2, THYR #### [facility] ([id number]) [address], [address] [place] [address] Eosinophils/100 WBC (Bld) 2.4 % Normal [facility] Comment on above: Performed By: #### C CRESENCIO NELSON, 90666-2, THYR #### [facility] ([id number]) [address], [address] [place] [address] Erythrocyte distribution width (RBC) [Ratio] 12.7 % Normal 11.5-15.0 [facility] Comment on above: Performed By: #### C BCA, CMP, 17203-6, THYR #### [facility] ([id number]) [address], [address] [place] [address] Hematocrit (Bld) [Volume fraction] 41.4 % Normal 39-49 [facility] Comment on above: Performed By: #### C BCA, CMP, 29735-5, THYR #### [facility] ([id number]) [address], [address] [place] [address] Hemoglobin (Bld) [Mass/Vol] 13.9 g/dL Normal 13.0-17.0 [facility] Comment on above: Performed By: #### C BCA, CMP, 22954-1, THYR #### [facility] ([id number]) [address], [address] [place] [address] Lymphocytes (Bld) [#/Vol] 2.2 10*3/uL Normal 1.0-3.5 [facility] Comment on above: Performed By: #### C BCA, CMP, 67954-5, THYR #### [facility] ([id number]) [address], [address] [place] [address] Lymphocytes/100 WBC (Bld) 42.9 % Normal [facility] Comment on above: Performed By: #### C BCA, CMP, 50928-6, THYR #### [facility] ([id number]) [address], [address] [place] [address] MCH (RBC) [Entitic mass] 29.7 pg Normal 27-34 [facility] Comment on above: Performed By: #### C BCA, CMP, 49204-9, THYR #### [facility] ([id number]) [address], [address] [place] [address] MCHC (RBC) [Mass/Vol] 33.5 g/dL Normal 32-36 [facility] Comment on above: Performed By: #### C BCA, CMP, 25073-0, THYR #### [facility] ([id number]) [address], [address] [place] [address] MCV (RBC) [Entitic vol] 89 fL Normal 80-100 [facility] Comment on above: Performed By: #### C BCA, CMP, 77836-2, THYR #### [facility] ([id number]) [address], [address] [place] [address] Monocytes (Bld) [#/Vol] 0.5 10*3/uL Normal 0-0.9 [facility] Comment on above: Performed By: #### C LESLIE, CMP, 54120-4, THYR #### [facility] ([id number]) [address], [address] [place] [address] Monocytes/100 WBC (Bld) 8.8 % Normal [facility] Comment on above: Performed By: #### Cheyenne BCA, CMP, 13559-8, THYR #### [facility] ([id number]) [address], [address] [place] [address] Neutrophils/100 WBC (Bld) 45.4 % Normal [facility] Comment on above: Performed By: #### C BCA, CMP, 80413-6, THYR #### [facility] ([id number]) [address], [address] [place] [address] Platelet mean volume (Bld) [Entitic vol] 9.9 fL Normal 7-12 [facility] Comment on above: Performed By: #### C BCA, CMP, 55659-2, THYR #### [facility] ([id number]) [address], [address] [place] [address] Platelets (Bld) [#/Vol] 292 10*3/uL Normal 150-450 [facility] Comment on above: Performed By: #### C BCA, CMP, 90218-7, THYR #### [facility] ([id number]) [address], [address] [place] [address] RBC COUNT 4.68 X10E12/L Normal 4.10-5.70 [facility] Comment on above: Performed By: #### C LESLIE, [facility], 97296-1, THYR #### [facility] ([id number]) [address], [address] [place] [address] WBC (Bld) [#/Vol] 5.1 10*3/uL Normal 4.0-11.0 [facility] Comment on above: Performed By: #### C LESLIE, [facility], 98586-1, THYR #### [facility] ([id number]) [address], [address] [place] [address] CBC auto differentialon 05-25 Basophils (Bld) [#/Vol] 0.0 10*3/uL [facility] Basophils/100 WBC (Bld) 0.5 % [facility] Eosinophils (Bld) [#/Vol] 0.1 10*3/uL [facility] Eosinophils/100 WBC (Bld) 2.4 % [facility] Erythrocyte distribution width (RBC) [Ratio] 12.7 % 11.5 - 15.0 % [facility] Hematocrit (Bld) [Volume fraction] 41.4 % 39 - 49 % [facility] Hemoglobin (Bld) [Mass/Vol] 13.9 g/dL 13.0 - 17.0 g/dL [facility] Lymphocytes (Bld) [#/Vol] 2.2 10*3/uL [facility] Lymphocytes/100 WBC (Bld) 42.9 % [facility] MCH (RBC) [Entitic mass] 29.7 pg 27 - 34 pg [facility] MCHC (RBC) [Mass/Vol] 33.5 g/dL 32 - 36 g/dL [facility] MCV (RBC) [Entitic vol] 89 fL 80 - 100 fL [facility] Monocytes (Bld) [#/Vol] 0.5 10*3/uL [facility] Monocytes/100 WBC (Bld) 8.8 % [facility] Neutrophils (Bld) [#/Vol] 2.3 10*3/uL [facility] Neutrophils/100 WBC (Bld) 45.4 % [facility] Platelet mean volume (Bld) [Entitic vol] 9.9 fL 7 - 12 fL [facility] Platelets (Bld) [#/Vol] 292 10*3/uL [facility] RBC (Bld) [#/Vol] 4.68 10*6/uL [facility] WBC corrected for nucl RBC Auto (Bld) [#/Vol] 5.1 [facility] COMPREHENSIVE METABOLIC PANE Crispin 06-21-2023 Albumin [Mass/Vol] 3.6 g/dL Normal 3.2-5.3 [facility] Comment on above: Performed By: #### C BCA, CMP, 10364-5, THYR #### [facility] ([id number]) [address], [address] [place] [address] ALP [Catalytic activity/Vol] 59 U/L Normal 39-130 [facility] Comment on above: Performed By: #### C BCA, CMP, 72550-2, THYR #### [facility] ([id number]) [address], [address] [place] [address] ALT [Catalytic activity/Vol] 25 U/L Normal 0-40 [facility] Comment on above: Performed By: #### C BCA, CMP, 09812-7, THYR #### [facility] ([id number]) [address], [address] [place] [address] Anion gap [Moles/Vol] 8 mmol/L Normal 5-15 [facility] Comment on above: Performed By: #### C BCA, CMP, 22906-6, THYR #### [facility] ([id number]) [address], [address] [place] [address] AST [Catalytic activity/Vol] 24 U/L Normal 0-41 [facility] Comment on above: Performed By: #### C BCA, CMP, 18450-7, THYR #### [facility] ([id number]) [address], [address] [place] [address] Bilirubin [Mass/Vol] 0.5 mg/dL Normal 0.3-1.2 [facility] Comment on above: Performed By: #### C BCA, CMP, 47066-5, THYR #### [facility] ([id number]) [address], [address] [place] [address] Calcium [Mass/Vol] 9.3 mg/dL Normal 8.5-10.5 [facility] Comment on above: Performed By: #### C BCA, CMP, 02192-6, THYR #### [facility] ([id number]) [address] [place] [address] Chloride [Moles/Vol] 102 mmol/L Normal 98-109 [facility] Comment on above: Performed By: #### C BCA, CMP, 00722-4, THYR #### [facility] ([id number]) [address], [address] [place] [address] CO2 [Moles/Vol] 33 mmol/L High 22-32 [facility] Comment on above: Performed By: #### C BCA, CMP, 27631-2, THYR #### [facility] ([id number]) [address], [address] [place] [address] Creatinine [Mass/Vol] 1.00 mg/dL Normal 0.60-1.30 [facility] Comment on above: Result Comment: METH OD TRACEABLE TO IDMS STANDARD Performed By: #### C BCA, CMP, 46227-0, THYR #### [facility] ([id number]) [address], [address] [place] [address] eGFR (CKD-EPI) NON-RACE DEPENDENT >90 Normal >59 [facility] Comment on above: Result Comment: Reported eGFR is based on the CKD-EPI 2020 equation that does not use a race coefficient. Performed By: #### C LESLIE CMP, 83843-9, THYR #### [facility] ([id number]) [address], [address] [place] [address] Glucose [Mass/Vol] 139 mg/dL High 65-99 [facility] Comment on above: Performed By: #### C CRESENCIO NELSON, 99802-2, THYR #### [facility] ([id number]) [address], [address] [place] [address] Potassium [Moles/Vol] 4.3 mmol/L Normal 3.5-5.0 [facility] Comment on above: Performed By: #### C LESLIE, CMP, 83116-4, THYR #### [facility] ([id number]) [address], [address] [place] [address] Protein [Mass/Vol] 6.2 g/dL Normal 6.0-8.0 [facility] Comment on above: Performed By: #### C LESLIE CMP, 69591-7, THYR #### [facility] ([id number]) [address], [address] [place] [address] Sodium [Moles/Vol] 143 mmol/L Normal 134-146 [facility] Comment on above: Performed By: #### C BCA, CMP, 02123-9, THYR #### [facility] ([id number]) [address] [place] [address] Urea nitrogen [Mass/Vol] 26 mg/dL High 5-23 [facility] Comment on above: Performed By: #### C BCA, CMP, 64664-0, THYR #### [facility] ([id number]) [address], [address] [place] [address] Comprehensive metabolic pane crispin 06-21-2023 Albumin [Mass/Vol] 3.6 g/dL 3.2 - 5.3 g/dL [facility] ALP [Catalytic activity/Vol] 59 U/L 39 - 130 U/L [facility] ALT No additional P-5'-P [Catalytic activity/Vol] 25 U/L 0 - 40 U/L [facility] Anion gap [Moles/Vol] 8 mmol/L 5 - 15 mmol/L [facility] AST [Catalytic activity/Vol] 24 U/L 0 - 41 U/L [facility] Bilirubin [Mass/Vol] 0.5 mg/dL 0.3 - 1 .2 mg/dL [facility] Calcium [Mass/Vol] 9.3 mg/dL 8.5 - 10. 5 mg/dL [facility] Chloride [Moles/Vol] 102 mmol/L 98 - 10 9 mmol/L [facility] CO2 [Moles/Vol] 33 mmol/L High 22 - 32 mmol/L [facility] Creatinine [Mass/Vol] 1.00 mg/dL 0.60 - 1.30 mg/dL [facility] Comment on above: METHOD TRACEABLE TO IDIA STANDARD eGFR (CKD-EPI)non-race dependent - PINF [facility] Comment on above: Reported eGFR is based on the CKD-EPI 2020 equation that does not use a race coefficient. Glucose [Mass/Vol] 139 mg/dL High 65 - 99 mg/dL [facility] Interpretation and review of laboratory results Abnormal [facility] Potassium [Moles/Vol] 4.3 mmol/L 3.5 - 5.0 mmol/L [facility] Protein [Mass/Vol] 6.2 g/dL 6.0 - 8.0 g/dL [facility] Sodium [Moles/Vol] 143 mmol/L 134 - 146 mmol/L [facility] Urea nitrogen [Mass/Vol] 26 mg/dL High 5 - 23 mg/dL [facility] Lipid 1996 panelon 02-29-202 4 Cholesterol [Mass/Vol] 198 mg/dL 150 - 200 mg/dL [facility] Cholesterol in HDL [Mass/Vol] 54 mg/dL 39 - PINF mg/dL [facility] Comment on above: HDL <40 mg/dL - High Risk HDL > or = 40mg/dL- Desirable HDL >60 mg/dL - Negative Risk Cholesterol in LDL [Mass/Vol] 124 mg/dL NINF - 130 mg/dL [facility] Comment on above: LDL <100 mg/dL - Desirable LDL >160 mg/dL - High Risk Cholesterol in VLDL [Mass/Vol] 20 mg/dL 0 - 30 mg/dL [facility] Cholesterol.total/Ch olesterol in HDL [Mass ratio] 3.7 {ratio} 1.0 - 5.0 [facility] Triglyceride [Mass/Vol] 100 mg/dL 27 - 150 mg/dL [facility] Cholesterol [Mass/Vol] 198 mg/dL Normal 150-200 [facility] Comment on above: Performed By: #### C LESLIE, CRESENCIO, 60411-4, THYR #### [facility] ([id number]) [address], [address] [place] [address] Cholesterol in HDL [Mass/Vol] 54 mg/dL Normal >39 [facility] Comment on above: Result Comment: HDL <40 mg/dL - High Risk HDL > or = 40mg/dL- Desirable HDL >60 mg/dL - Negative Risk Performed By: #### C BCA, CMP, 00774-1, THYR #### [facility] ([id number]) [address] [place] [address] Cholesterol in LDL [Mass/Vol] 124 mg/dL Normal <130 [facility] Comment on above: Result Comment: LDL <100 mg/dL - Desirable LDL >160 mg/dL - High Risk Performed By: #### C BCA, CMP, 86021-6, THYR #### [facility] ([id number]) [address], [address] [place] [address] Cholesterol in VLDL [Mass/Vol] 20 mg/dL Normal 0-30 [facility] Comment on above: Performed By: #### C BCA, CMP, 98150-3, THYR #### [facility] ([id number]) [address], [address] [place] [address] CHOLESTEROL:HDL 3.7 Normal 1.0-5.0 [facility] Comment on above: Performed By: #### C BCA, CMP, 44400-9, THYR #### [facility] ([id number]) [address], [address] [place] [address] Triglyceride [Mass/Vol] 100 mg/dL Normal 27-150 [facility] Comment on above: Performed By: #### C BCA, CMP, 43891-2, THYR #### [facility] ([id number]) [address] [place] [address] No Panel Informationon [facility] THYROID PROFILEon 06-21-2023 Free T4 [Mass/Vol] 0.86 ng/dL Normal 0.61-1.60 [facility] Comment on above: Performed By: #### C BCA, CMP, 26774-7, THYR #### [facility] ([id number]) [address], [address] [place] [address] TSH 1.73 uIU/mL Normal 0.49-4.67 [facility] Comment on above: Performed By: #### C BCA, CMP, 85507-0, THYR #### [facility] ([id number]) [address], [address] [place] [address] Thyroid profile includes TSH FT4on 06-21-2023 Free T4 [Mass/Vol] 0.86 ng/dL 0.61 - 1. 60 ng/dL [facility] TSH Qn 1.73 m[IU]/L [facility] CBC auto differentialon 05-25 Basophils (Bld) [#/Vol] 0.0 10*3/uL [facility] Basophils/100 WBC (Bld) 0.4 % [facility] Eosinophils (Bld) [#/Vol] 0.1 10*3/uL [facility] Eosinophils/100 WBC (Bld) 0.6 % [facility] Erythrocyte distribution width (RBC) [Ratio] 12.8 % 11.5 - 15.0 % [facility] Hematocrit (Bld) [Volume fraction] 32.4 % Low 39 - 49 % [facility] Hemoglobin (Bld) [Mass/Vol] 11.0 g/dL Low 13.0 - 17.0 g/dL [facility] Interpretation and review of laboratory results Abnormal [facility] Lymphocytes (Bld) [#/Vol] 3.1 10*3/uL [facility] Lymphocytes/100 WBC (Bld) 31.1 % [facility] MCH (RBC) [Entitic mass] 30.1 pg 27 - 34 pg [facility] MCHC (RBC) [Mass/Vol] 34.0 g/dL 32 - 36 g/dL [facility] MCV (RBC) [Entitic vol] 89 fL 80 - 100 fL [facility] Monocytes (Bld) [#/Vol] 0.5 10*3/uL [facility] Monocytes/100 WBC (Bld) 5.4 % [facility] Neutrophils (Bld) [#/Vol] 6.2 10*3/uL [facility] Neutrophils/100 WBC (Bld) 62.5 % [facility] Platelet mean volume (Bld) [Entitic vol] 9.5 fL 7 - 12 fL [facility] Platelets (Bld) [#/Vol] 187 10*3/uL [facility] RBC (Bld) [#/Vol] 3.66 10*6/uL Low [facility] WBC corrected for nucl RBC Auto (Bld) [#/Vol] 9.9 [facility] Comprehensive metabolic pane crispin 06-17-2023 Albumin [Mass/Vol] 3.2 g/dL 3.2 - 5.3 g/dL [facility] ALP [Catalytic activity/Vol] 52 U/L 39 - 130 U/L [facility] ALT No additional P-5'-P [Catalytic activity/Vol] 20 U/L 0 - 40 U/L [facility] Anion gap [Moles/Vol] 4 mmol/L Low 5 - 15 mmol/L [facility] AST [Catalytic activity/Vol] 17 U/L 0 - 41 U/L [facility] Bilirubin [Mass/Vol] 0.5 mg/dL 0.3 - 1 .2 mg/dL [facility] Calcium [Mass/Vol] 8.1 mg/dL Low 8.5 - 10. 5 mg/dL [facility] Chloride [Moles/Vol] 103 mmol/L 98 - 10 9 mmol/L [facility] CO2 [Moles/Vol] 29 mmol/L 22 - 32 mmol/L [facility] Creatinine [Mass/Vol] 0.90 mg/dL 0.60 - 1.30 mg/dL [facility] Comment on above: METHOD TRACEABLE TO IDIA STANDARD eGFR (CKD-EPI)non-race dependent - PINF [facility] Comment on above: Reported eGFR is based on the CKD-EPI 2020 equation that does not use a race coefficient. Glucose [Mass/Vol] 290 mg/dL High 65 - 99 mg/dL [facility] Potassium [Moles/Vol] 4.7 mmol/L 3.5 - 5.0 mmol/L [facility] Protein [Mass/Vol] 5.3 g/dL Low 6.0 - 8.0 g/dL [facility] Sodium [Moles/Vol] 136 mmol/L 134 - 146 mmol/L [facility] Urea nitrogen [Mass/Vol] 21 mg/dL 5 - 23 mg/dL [facility] Glucose Glucometer (BldC) [M ass/Vol]on 06-17-2023 Glucose [Mass/Vol] 307 mg/dL High 65 - 99 mg/dL [facility] Interpretation and review of laboratory results Abnormal [facility] Magnesiumon 06-17-2023 Magnesium [Mass/Vol] 2.0 mg/dL 1.8 - 2 .6 mg/dL [facility] No Panel Informationon 06-17 Interpretation and review of laboratory results Abnormal [facility] Phosphoruson 06-17-2023 Phosphate [Mass/Vol] 3.3 mg/dL 2.4 - 4 .9 mg/dL [facility] Procalcitoninon 06-17-2023 Procalcitonin IA [Mass/Vol] 5.30 ng/mL High NINF - 0.05 ng/mL [facility] Comment on above: NOTE <0.50 ng/mL - Low risk of severe sepsis and/or septic shock. <2.00 ng/mL - Recommend retesting within 6-24 hours. >2.00 ng/mL - High risk of sepsis and/or septic shock. Blood gas, venouson 06-16-19 Arterial patency Wrist artery --pre arterial puncture [facility] Base deficit (Bld) [Moles/Vol] 7.0 mmol/L High [facility] CO2 (BldV) [Partial pressure] 44.2 mm[Hg] [facility] HCO3 (Bld) [Moles/Vol] 19.8 mmol/L Low [facility] Interpretation and review of laboratory results Abnormal [facility] Oxygen (BldV) [Partial pressure] 55 mm[Hg] High [facility] Oxygen therapy source and amount [CARE] RoomAir [facility] Oxygen/Inspired gas setting [Volume Fraction] Ventilator 21 % [facility] pH (BldV) 7.259 [pH] Low 7.320 - 7.420 [facility] SaO2% Calculated from oxygen partial pressure (BldV) [Mass fraction] 83.0 % 80.0 - PINF % [facility] Specimen site Narrative N/A [facility] Specimen type Nom (Spec) VENOUS [facility] [facility] Arterial patency Wrist artery --pre arterial puncture [facility] Base deficit (Bld) [Moles/Vol] 12.0 mmol/L High [facility] CO2 (BldV) [Partial pressure] 40.4 mm[Hg] [facility] HCO3 (Bld) [Moles/Vol] 15.5 mmol/L Low [facility] Interpretation and review of laboratory results Abnormal [facility] Oxygen (BldV) [Partial pressure] 53 mm[Hg] High [facility] Oxygen therapy source and amount [CARE] RoomAir [facility] Oxygen/Inspired gas setting [Volume Fraction] Ventilator 21 % [facility] pH (BldV) 7.192 [pH] Low 7.320 - 7.420 [facility] SaO2% Calculated from oxygen partial pressure (BldV) [Mass fraction] 79.0 % Low 80.0 - PINF % [facility] Specimen site Narrative N/A [facility] Specimen type Nom (Spec) VENOUS [facility] CBC auto differentialon 05-25 Basophils (Bld) [#/Vol] 0.0 10*3/uL [facility] Basophils/100 WBC (Bld) 0.2 % [facility] Eosinophils (Bld) [#/Vol] 0.0 10*3/uL [facility] Eosinophils/100 WBC (Bld) 0.0 % [facility] Erythrocyte distribution width (RBC) [Ratio] 12.8 % 11.5 - 15.0 % [facility] Hematocrit (Bld) [Volume fraction] 35.1 % Low 39 - 49 % [facility] Hemoglobin (Bld) [Mass/Vol] 11.5 g/dL Low 13.0 - 17.0 g/dL [facility] Interpretation and review of laboratory results Abnormal [facility] Lymphocytes (Bld) [#/Vol] 1.4 10*3/uL [facility] Lymphocytes/100 WBC (Bld) 8.6 % [facility] MCH (RBC) [Entitic mass] 29.3 pg 27 - 34 pg [facility] MCHC (RBC) [Mass/Vol] 32.7 g/dL 32 - 36 g/dL [facility] MCV (RBC) [Entitic vol] 90 fL 80 - 100 fL [facility] Monocytes (Bld) [#/Vol] 1.2 10*3/uL High [facility] Monocytes/100 WBC (Bld) 7.4 % [facility] Neutrophils (Bld) [#/Vol] 13.8 10*3/uL High [facility] Neutrophils/100 WBC (Bld) 83.8 % [facility] Platelet mean volume (Bld) [Entitic vol] 10.3 fL 7 - 12 fL [facility] Platelets (Bld) [#/Vol] 232 10*3/uL [facility] RBC (Bld) [#/Vol] 3.92 10*6/uL Low [facility] WBC corrected for nucl RBC Auto (Bld) [#/Vol] 16.5 High [facility] Comprehensive metabolic pane crispin 06-16-2023 Albumin [Mass/Vol] 3.6 g/dL 3.2 - 5.3 g/dL [facility] ALP [Catalytic activity/Vol] 55 U/L 39 - 130 U/L [facility] ALT No additional P-5'-P [Catalytic activity/Vol] 22 U/L 0 - 40 U/L [facility] Anion gap [Moles/Vol] 18 mmol/L High 5 - 15 mmol/L [facility] AST [Catalytic activity/Vol] 24 U/L 0 - 41 U/L [facility] Bilirubin [Mass/Vol] 0.7 mg/dL 0.3 - 1 .2 mg/dL [facility] Calcium [Mass/Vol] 8.0 mg/dL Low 8.5 - 10. 5 mg/dL [facility] Chloride [Moles/Vol] 97 mmol/L Low 98 - 10 9 mmol/L [facility] CO2 [Moles/Vol] 16 mmol/L Low 22 - 32 mmol/L [facility] Creatinine [Mass/Vol] 1.31 mg/dL High 0.60 - 1.30 mg/dL [facility] Comment on above: METHOD TRACEABLE TO [facility] STANDARD eGFR (CKD-EPI)non-race dependent 72 - PINF [facility] Comment on above: Reported eGFR is based on the CKD-EPI 2020 equation that does not use a race coefficient. Glucose [Mass/Vol] 549 mg/dL Critically high 65 - 99 mg/d L [facility] Interpretation and review of laboratory results Abnormal [facility] Potassium [Moles/Vol] 4.6 mmol/L 3.5 - 5.0 mmol/L [facility] Protein [Mass/Vol] 6.0 g/dL 6.0 - 8.0 g/dL [facility] Sodium [Moles/Vol] 131 mmol/L Low 134 - 146 mmol/L [facility] Urea nitrogen [Mass/Vol] 37 mg/dL High 5 - 23 mg/dL [facility] Electrolyte panelon 06-16-19 Anion gap [Moles/Vol] 5 mmol/L 5 - 15 mmol/L [facility] Chloride [Moles/Vol] 108 mmol/L 98 - 10 9 mmol/L [facility] CO2 [Moles/Vol] 26 mmol/L 22 - 32 mmol/L [facility] Potassium [Moles/Vol] 4.2 mmol/L 3.5 - 5.0 mmol/L [facility] Sodium [Moles/Vol] 139 mmol/L 134 - 146 mmol/L [facility] Anion gap [Moles/Vol] 6 mmol/L 5 - 15 mmol/L [facility] Chloride [Moles/Vol] 106 mmol/L 98 - 10 9 mmol/L [facility] CO2 [Moles/Vol] 24 mmol/L 22 - 32 mmol/L [facility] Potassium [Moles/Vol] 4.4 mmol/L 3.5 - 5.0 mmol/L [facility] Sodium [Moles/Vol] 136 mmol/L 134 - 146 mmol/L [facility] Anion gap [Moles/Vol] 15 mmol/L 5 - 15 mmol/L [facility] Chloride [Moles/Vol] 102 mmol/L 98 - 10 9 mmol/L [facility] CO2 [Moles/Vol] 19 mmol/L Low 22 - 32 mmol/L [facility] Interpretation and review of laboratory results Abnormal [facility] Potassium [Moles/Vol] 4.2 mmol/L 3.5 - 5.0 mmol/L [facility] Sodium [Moles/Vol] 136 mmol/L 134 - 146 mmol/L [facility] Glucose Glucometer (BldC) [M ass/Vol]on 06-16-2023 Glucose [Mass/Vol] 338 mg/dL High 65 - 99 mg/dL [facility] Interpretation and review of laboratory results Abnormal [facility] Glucose [Mass/Vol] 174 mg/dL High 65 - 99 mg/dL [facility] Glucose [Mass/Vol] 195 mg/dL High 65 - 99 mg/dL [facility] Interpretation and review of laboratory results Abnormal [facility] Glucose [Mass/Vol] 68 mg/dL 65 - 99 mg/dL [facility] Glucose [Mass/Vol] 91 mg/dL 65 - 99 mg/dL [facility] Glucose [Mass/Vol] 116 mg/dL High 65 - 99 mg/dL [facility] Interpretation and review of laboratory results Abnormal [facility] Glucose [Mass/Vol] 209 mg/dL High 65 - 99 mg/dL [facility] Glucose [Mass/Vol] 159 mg/dL High 65 - 99 mg/dL [facility] Interpretation and review of laboratory results Abnormal [facility] Glucose [Mass/Vol] 257 mg/dL High 65 - 99 mg/dL [facility] Glucose [Mass/Vol] 208 mg/dL High 65 - 99 mg/dL [facility] Interpretation and review of laboratory results Abnormal [facility] Glucose [Mass/Vol] 302 mg/dL High 65 - 99 mg/dL [facility] Interpretation and review of laboratory results Abnormal [facility] Glucose [Mass/Vol] 336 mg/dL High 65 - 99 mg/dL [facility] Interpretation and review of laboratory results Abnormal [facility] Glucose [Mass/Vol] 401 mg/dL Critically high 65 - 99 mg/d L [facility] Interpretation and review of laboratory results Abnormal [facility] Glucose [Mass/Vol] 473 mg/dL Critically high 65 - 99 mg/d L [facility] Interpretation and review of laboratory results Abnormal [facility] Glucose [Mass/Vol] mg/dL Critically high 65 - 99 mg/d L [facility] Comment on above: SEE LAB RESULTS FOR CONFIRMATION Interpretation and review of laboratory results Abnormal [facility] Hemoglobin A1con 06-16-2023 Average glucose Estimated from glycated hemoglobin (Bld) [Mass/Vol] 214 mg/dL [facility] HbA1c (Bld) [Mass fraction] 9.1 % High 4.4 - 5.6 % [facility] Comment on above: NOTE ADA Guidelines Result HgbA1c Normal : less than 5.7 % Prediabetes : 5.7 % to 6.4 % Diabetes : > 6.4 % Use with caution in patients with abnormal hemoglobin variants as the half-life of red blood cells and in vivo glycation rates are affected. Interpretation and review of laboratory results Abnormal [facility] Ionized magnesiumon 06-16-19 Magnesium Ionized ISE (Bld) [Moles/Vol] 0.61 mmol/L 0.45 - 0.74 mmol/L [facility] Comment on above: NEW REFERENCE RANGE Laboratory - Microbiology an d Antimicrobial susceptibilityon 06-16-2023 FLUAV+FLUBV RNA GAYLE+probe Ql (Unsp spec) Negative Negative^Nega tive [facility] Lipaseon 06-16-2023 Lipase [Catalytic activity/Vol] U/L Low 11 - 82 U/L [facility] Lipase [Catalytic activity/V ol]on 06-16-2023 Interpretation and review of laboratory results Abnormal [facility] MRSA DNA GAYLE+probe Ql (Unsp spec)on 06-16-2023 [facility] Magnesiumon 06-16-2023 Magnesium [Mass/Vol] 1.9 mg/dL 1.8 - 2 .6 mg/dL [facility] Magnesium Ionized ISE (Bld) [Moles/Vol]on 06-16-2023 [facility] Mrsa Pcr nasal swabon 2023 MRSA DNA GAYLE+probe Ql (Unsp spec) Negative Negative^Nega tive [facility] No Panel Informationon 06-16 [facility] Phosphoruson 06-16-2023 Phosphate [Mass/Vol] 4.2 mg/dL 2.4 - 4 .9 mg/dL [facility] Potassiumon 06-16-2023 Potassium [Moles/Vol] 6.8 mmol/L Critically high 3.5 - 5.0 mmol/L [facility] Potassium [Moles/Vol]on 05-25 Interpretation and review of laboratory results Abnormal [facility] Procalcitoninon 06-16-2023 Procalcitonin IA [Mass/Vol] 3.36 ng/mL High NINF - 0.05 ng/mL [facility] Comment on above: NOTE <0.50 ng/mL - Low risk of severe sepsis and/or septic shock. <2.00 ng/mL - Recommend retesting within 6-24 hours. >2.00 ng/mL - High risk of sepsis and/or septic shock. Procalcitonin IA [Mass/Vol]o n 06-16-2023 Interpretation and review of laboratory results Abnormal [facility] SARS/FLU A+B/RSV by NAAT/Mol ecular (M4RT Collection Tube)on 06-16-2023 RSV RNA AGYLE+probe Nom (Unsp spec) Negative Negative^Nega tive [facility] SARS-CoV-2 (COVID-19) RNA GAYLE+probe Ql (Resp) Not detected Not Detected^Not Detected [facility] Comment on above: NOTE The Xpert Xpress SARS-CoV-2/Flu/RSV Plus test is a rapid, multiplexed real-time RT-PCR test intended for the simultaneous qualitative detection and differentiation of SARS-CoV-2, influenza A, influenza B and respiratory syncytial virus (RSV) viral RNA from individuals suspected of respiratory viral infection consistent with COVID-19 by their healthcare provider. This test has not been validated in asymptomatic patients. The Xpert Xpress SARS-CoV-2 test is intended for use by qualified and trained operators who are performing tests using either [employer] or [employer] systems and is limited to laboratories that meet the CLIA requirements to perform high and moderate complexity tests. The Xpert Xpress SARS-CoV-2/Flu/RSV Plus is only for use under the Food and Drug Administration's Emergency Use Authorization. Results are for the simultaneous detection and differentiation of SARS-CoV-2, influenza A, influenza B and RSV nucleic acids in clinical specimens. SARS-CoV-2, influenza A, influenza B and RSV RNA identified by this test are generally detectable in upper respiratory samples during the acute phase of infection. Positive results are indicative of the presence of the identified virus, but do not rule out bacterial infection or co-infection with other pathogens not detected by this test. Clinical correlation with patient history and other diagnostic information is necessary to determine patient infection status. The agent detected may not be the definite cause of disease. Negative results do not preclude SARS-CoV-2, influenza A, influenza B and RSV infection and should not be used as the sole basis for treatment or other patient management decisions. Negative results must be combined with clinical observations, patient history and epidemiological information. An Invalid result may occur with specimen-associated inhibition unable to be resolved with specimen repeat. Fact Sheet for Healthcare Providers: https://www.fda.gov/media/550965/download Fact Sheet for Patients: https://www.fda.gov/media/427406/download [employer] XR Chest Single viewon 06-16 XR CHEST 1 VW HISTORY: Sepsis, type 1 diabetes COMPARISON: Chest radiograph 01/08/2019 FINDINGS: Portable AP view of the chest obtained. The cardiomediastinal silhouette is within normal limits. No pleural effusion. No consolidation. IMPRESSION: No radiographic evidence of acute cardiopulmonary process. Approved by Resident: Margarito Bryan DO on 06/16/2023 8:54 AM I, Eugene Aponte have personally reviewed the image(s) and agree with and/or edited the report Finalized by Eugene Aponte on 06/16/2023 9:02 AM Eugene Colby MD - 06/16/2023 XR CHEST 1 VW HISTORY: Sepsis, type 1 diabetes COMPARISON: Chest radiograph 01/08/2019 FINDINGS: Portable AP view of the chest obtained. The cardiomediastinal silhouette is within normal limits. No pleural effusion. No consolidation. IMPRESSION: No radiographic evidence of acute cardiopulmonary process. Approved by Resident: Margarito Bryan DO on 06/16/2023 8:54 AM Eugene Dickens have personally reviewed the image(s) and agree with and/or edited the report Finalized by Eugene Aponte on 06/16/2023 9:02 AM [facility] Radiology Study observation (narrative) [facility] XR Chest Single viewOrdered By: Eugene Aponte on 06-16-2023 [facility] Work Phone: Acetone, (BetaHydroxybutyrat e, Ketone) quantitative, serumon 06-15-2023 Beta hydroxybutyrate [Moles/Vol] 7.20 mmol/L High 0.02 - 0.27 mmol/L [facility] Basic Metabolic Panelon 05-25 Anion gap [Moles/Vol] 24 mmol/L High 5 - 15 mmol/L [facility] Calcium [Mass/Vol] 9.2 mg/dL 8.5 - 10. 5 mg/dL [facility] Chloride [Moles/Vol] 87 mmol/L Low 98 - 10 9 mmol/L [facility] CO2 [Moles/Vol] 17 mmol/L Low 22 - 32 mmol/L [facility] Creatinine [Mass/Vol] 1.38 mg/dL High 0.60 - 1.30 mg/dL [facility] Comment on above: METHOD TRACEABLE TO [facility] STANDARD eGFR (CKD-EPI)non-race dependent 68 - PINF [facility] Comment on above: Reported eGFR is based on the CKD-EPI 2020 equation that does not use a race coefficient. Glucose [Mass/Vol] 701 mg/dL Critically high 65 - 99 mg/d L [facility] Interpretation and review of laboratory results Abnormal [facility] Potassium [Moles/Vol] 6.6 mmol/L Critically high 3.5 - 5.0 mmol/L [facility] Sodium [Moles/Vol] 128 mmol/L Low 134 - 146 mmol/L [facility] Urea nitrogen [Mass/Vol] 31 mg/dL High 5 - 23 mg/dL [facility] Blood gas, venouson 06-15-19 Arterial patency Wrist artery --pre arterial puncture [facility] Base deficit (Bld) [Moles/Vol] 9.0 mmol/L High [facility] CO2 (BldV) [Partial pressure] 37.4 mm[Hg] [facility] HCO3 (Bld) [Moles/Vol] 17.5 mmol/L Low [facility] Interpretation and review of laboratory results Abnormal [facility] Oxygen (BldV) [Partial pressure] 38 mm[Hg] [facility] Oxygen therapy source and amount [CARE] RoomAir [facility] Oxygen/Inspired gas setting [Volume Fraction] Ventilator 21 % [facility] pH (BldV) 7.279 [pH] Low 7.320 - 7.420 [facility] SaO2% Calculated from oxygen partial pressure (BldV) [Mass fraction] 65.0 % Low 80.0 - PINF % [facility] Specimen site Narrative N/A [facility] Specimen type Nom (Spec) VENOUS [facility] CBC auto differentialon 05-25 Basophils (Bld) [#/Vol] 0.0 10*3/uL [facility] Basophils/100 WBC (Bld) 0.1 % [facility] Eosinophils (Bld) [#/Vol] 0.0 10*3/uL [facility] Eosinophils/100 WBC (Bld) 0.0 % [facility] Erythrocyte distribution width (RBC) [Ratio] 12.7 % 11.5 - 15.0 % [facility] Hematocrit (Bld) [Volume fraction] 41.2 % 39 - 49 % [facility] Hemoglobin (Bld) [Mass/Vol] 13.6 g/dL 13.0 - 17.0 g/dL [facility] Interpretation and review of laboratory results Abnormal [facility] Lymphocytes (Bld) [#/Vol] 1.0 10*3/uL [facility] Lymphocytes/100 WBC (Bld) 6.9 % [facility] MCH (RBC) [Entitic mass] 29.6 pg 27 - 34 pg [facility] MCHC (RBC) [Mass/Vol] 32.9 g/dL 32 - 36 g/dL [facility] MCV (RBC) [Entitic vol] 90 fL 80 - 100 fL [facility] Monocytes (Bld) [#/Vol] 0.5 10*3/uL [facility] Monocytes/100 WBC (Bld) 3.5 % [facility] Neutrophils (Bld) [#/Vol] 13.4 10*3/uL High [facility] Neutrophils/100 WBC (Bld) 89.5 % [facility] Platelet mean volume (Bld) [Entitic vol] 11.3 fL 7 - 12 fL [facility] Platelets (Bld) [#/Vol] 277 10*3/uL [facility] RBC (Bld) [#/Vol] 4.57 10*6/uL [facility] WBC corrected for nucl RBC Auto (Bld) [#/Vol] 15.0 High [facility] ECG 12 leadOrdered By: Linda Sanders on 06-15-2023 [facility] ER Extra Urineon 06-15-2023 Urine collection device ER EXTRA URINE ORDER IN PROCESS [facility] Glucose Glucometer (BldC) [M ass/Vol]on 06-15-2023 Glucose [Mass/Vol] mg/dL Critically high 65 - 99 mg/d L [facility] Comment on above: SEE LAB RESULTS FOR CONFIRMATION Interpretation and review of laboratory results Abnormal [facility] Magnesiumon 06-15-2023 Magnesium [Mass/Vol] 2.0 mg/dL 1.8 - 2 .6 mg/dL [facility] No Panel Informationon 06-15 Interpretation and review of laboratory results Abnormal [facility] POCT Nursing Urine Macroscop ic UAon 06-15-2023 Bilirubin Ql (U) Negative Negative^Ne ga tive [facility] Glucose [Mass/Vol] mg/dL Abnormal Negative^ Nega tive mg/dL [facility] Hemoglobin Ql (U) Trace Abnormal Negative^N ega tive [facility] Interpretation and review of laboratory results Abnormal [facility] Ketones (U) [Mass/Vol] mg/dL Abnormal Negative^Nega tive mg/dL [facility] Leukocyte esterase Test strip Ql (U) Negative Negative^Nega tive [facility] Nitrite Ql (U) Negative Negative^Nega tive [facility] pH (U) 5.0 [pH] 5.0 - 8.5 [facility] Protein Ql (U) Negative Negative^Nega tive mg/dL [facility] Specific gravity (U) [Rel density] 1.015 1.003 - 1.035 [facility] Urobilinogen Qn (U) 0.2 NINF [facility] Phosphoruson 06-15-2023 Phosphate [Mass/Vol] 5.8 mg/dL High 2.4 - 4 .9 mg/dL [facility] Urine collection deviceon [facility] Basic Metabolic Profileon Anion gap [Moles/Vol] 7 mmol/L Low 10-20 [facility] Comment on above: Order Comment: Testi ng performed at [facility], [address] [place] [address] Host Order: [id number] Calcium [Mass/Vol] 9.4 mg/dL Normal 8.4-10.2 [facility] Comment on above: Order Comment: Testi ng performed at [facility], [address] [place] [address] Host Order: [id number] Chloride [Moles/Vol] 98 mmol/L Normal 98-107 [facility] Comment on above: Order Comment: Testi ng performed at [facility], [address] [place] [address] Host Order: [id number] Creatinine [Mass/Vol] 0.7 mg/dL Normal 0.6-1.2 [facility] Comment on above: Order Comment: Testi ng performed at [facility], [address], [place] [address] Host Order: [id number] Glucose [Mass/Vol] 131 mg/dL High 74-106 [facility] Comment on above: Order Comment: Testi ng performed at [facility], [address] [address] Host Order: [id number] Potassium [Moles/Vol] 4.6 mmol/L Normal 3.3-4.9 [facility] Comment on above: Order Comment: Testi ng performed at [facility], [address], [place] [address] Host Order: [id number] Sodium [Moles/Vol] 136 mmol/L Low 137-145 [facility] Comment on above: Order Comment: Testi ng performed at [facility], [address] [place] [address] Host Order: [id number] Total CO2 35.7 mEq/L High 22.0-30.0 [facility] Comment on above: Order Comment: Testi ng performed at [facility], [address], [place] [address] Host Order: [id number] Urea nitrogen [Mass/Vol] 24 mg/dL High 8-19 [facility] Comment on above: Order Comment: Testi ng performed at [facility], [address], [place] [address] Host Order: [id number] CBC w/Auto Diffon 04-03-2019 Basophils (Bld) [#/Vol] 0.03 10*3/uL Normal 0.00-0.10 [facility] Comment on above: Order Comment: Immature Gran parameters reflect the combination of Metas, Myelos, and Promyelocytes and should be used in conjunction with other current indicators for the diagnosis of infection/inflammation. Bands are not included in the Immature Gran parameters. They are included with the Neutrophil parameters. Nucleated RBCs are counted separately from the WBCs. Corrected WBC is no longer indicated. [place] [address] Host Order: [id number] Basophils/100 WBC (Bld) 0.4 % Normal 0.2-1.2 [facility] Comment on above: Order Comment: Immature Gran parameters reflect the combination of Metas, Myelos, and Promyelocytes and should be used in conjunction with other current indicators for the diagnosis of infection/inflammation. Bands are not included in the Immature Gran parameters. They are included with the Neutrophil parameters. Nucleated RBCs are counted separately from the WBCs. Corrected WBC is no longer indicated. [place] [address] Host Order: [id number] Eosinophils (Bld) [#/Vol] 0.06 10*3/uL Normal 0.00-0.50 [facility] Comment on above: Order Comment: Immature Gran parameters reflect the combination of Metas, Myelos, and Promyelocytes and should be used in conjunction with other current indicators for the diagnosis of infection/inflammation. Bands are not included in the Immature Gran parameters. They are included with the Neutrophil parameters. Nucleated RBCs are counted separately from the WBCs. Corrected WBC is no longer indicated. Testing performed at [facility], [address] [place] [address] Host Order: [id number] Eosinophils/100 WBC (Bld) 0.7 % Low 0.8-7.0 [facility] Comment on above: Order Comment: Immature Gran parameters reflect the combination of Metas, Myelos, and Promyelocytes and should be used in conjunction with other current indicators for the diagnosis of infection/inflammation. Bands are not included in the Immature Gran parameters. They are included with the Neutrophil parameters. Nucleated RBCs are counted separately from the WBCs. Corrected WBC is no longer indicated. Testing performed at [place] [address] [address] Host Order: [id number] Erythrocyte distribution width (RBC) [Ratio] 11.4 % Low 11.6-14.4 [facility] Comment on above: Order Comment: Immature Gran parameters reflect the combination of Metas, Myelos, and Promyelocytes and should be used in conjunction with other current indicators for the diagnosis of infection/inflammation. Bands are not included in the Immature Gran parameters. They are included with the Neutrophil parameters. Nucleated RBCs are counted separately from the WBCs. Corrected WBC is no longer indicated. Testing performed at [facility], [address] [place] [place] [address] Host Order: [id number] Hematocrit (Bld) [Volume fraction] 43.9 % Normal 40.1-51.0 [facility] Comment on above: Order Comment: Immature Gran parameters reflect the combination of Metas, Myelos, and Promyelocytes and should be used in conjunction with other current indicators for the diagnosis of infection/inflammation. Bands are not included in the Immature Gran parameters. They are included with the Neutrophil parameters. Nucleated RBCs are counted separately from the WBCs. Corrected WBC is no longer indicated. Testing performed at [facility], [address] [place] [place] [address] Host Order: [id number] Hemoglobin (Bld) [Mass/Vol] 14.5 g/dL Normal 13.7-17.5 [facility] Comment on above: Order Comment: Immature Gran parameters reflect the combination of Metas, Myelos, and Promyelocytes and should be used in conjunction with other current indicators for the diagnosis of infection/inflammation. Bands are not included in the Immature Gran parameters. They are included with the Neutrophil parameters. Nucleated RBCs are counted separately from the WBCs. Corrected WBC is no longer indicated. Testing performed at [facility], [address] [id number] Host Order: [id number] Immature Gran % 0.4 % Normal 0.0-0.4 [facility] Comment on above: Order Comment: Immature Gran parameters reflect the combination of Metas, Myelos, and Promyelocytes and should be used in conjunction with other current indicators for the diagnosis of infection/inflammation. Bands are not included in the Immature Gran parameters. They are included with the Neutrophil parameters. Nucleated RBCs are counted separately from the WBCs. Corrected WBC is no longer indicated. Testing performed at [facility], [facility] [place] [address] Host Order: [id number] Immature Gran Count 0.03 10*3/uL High 0.00-0.00 [facility] Comment on above: Order Comment: Immature Gran parameters reflect the combination of Metas, Myelos, and Promyelocytes and should be used in conjunction with other current indicators for the diagnosis of infection/inflammation. Bands are not included in the Immature Gran parameters. They are included with the Neutrophil parameters. Nucleated RBCs are counted separately from the WBCs. Corrected WBC is no longer indicated. Testing performed at [facility], [facility] [place] [address] Host Order: [id number] Lymphocytes (Bld) [#/Vol] 1.41 10*3/uL Normal 1.30-3.60 [facility] Comment on above: Order Comment: Immature Gran parameters reflect the combination of Metas, Myelos, and Promyelocytes and should be used in conjunction with other current indicators for the diagnosis of infection/inflammation. Bands are not included in the Immature Gran parameters. They are included with the Neutrophil parameters. Nucleated RBCs are counted separately from the WBCs. Corrected WBC is no longer indicated. Testing performed at [facility], [facility] [place] [address] Host Order: [id number] Lymphocytes/100 WBC (Bld) 16.9 % Low 21.8-53.1 [facility] Comment on above: Order Comment: Immature Gran parameters reflect the combination of Metas, Myelos, and Promyelocytes and should be used in conjunction with other current indicators for the diagnosis of infection/inflammation. Bands are not included in the Immature Gran parameters. They are included with the Neutrophil parameters. Nucleated RBCs are counted separately from the WBCs. Corrected WBC is no longer indicated. Testing performed at [facility], [facility] [address] [address] Host Order: [id number] MCH (RBC) [Entitic mass] 29.0 pg Normal 25.7-32.2 [facility] Comment on above: Order Comment: Immature Gran parameters reflect the combination of Metas, Myelos, and Promyelocytes and should be used in conjunction with other current indicators for the diagnosis of infection/inflammation. Bands are not included in the Immature Gran parameters. They are included with the Neutrophil parameters. Nucleated RBCs are counted separately from the WBCs. Corrected WBC is no longer indicated. Testing performed at [facility], [address] [place] [address] Host Order: [id number] MCHC (RBC) [Mass/Vol] 33.0 g/dL Normal 32.3-36.5 [facility] Comment on above: Order Comment: Immature Gran parameters reflect the combination of Metas, Myelos, and Promyelocytes and should be used in conjunction with other current indicators for the diagnosis of infection/inflammation. Bands are not included in the Immature Gran parameters. They are included with the Neutrophil parameters. Nucleated RBCs are counted separately from the WBCs. Corrected WBC is no longer indicated. Testing performed at [facility], [facility] [place] [address] Host Order: [id number] MCV (RBC) [Entitic vol] 87.8 fL Normal 79.0-92.2 [facility] Comment on above: Order Comment: Immature Gran parameters reflect the combination of Metas, Myelos, and Promyelocytes and should be used in conjunction with other current indicators for the diagnosis of infection/inflammation. Bands are not included in the Immature Gran parameters. They are included with the Neutrophil parameters. Nucleated RBCs are counted separately from the WBCs. Corrected WBC is no longer indicated. Testing performed at [facility], [facility] [place] [address] Host Order: [id number] Monocytes (Bld) [#/Vol] 0.61 10*3/uL Normal 0.30-0.80 [facility] Comment on above: Order Comment: Immature Gran parameters reflect the combination of Metas, Myelos, and Promyelocytes and should be used in conjunction with other current indicators for the diagnosis of infection/inflammation. Bands are not included in the Immature Gran parameters. They are included with the Neutrophil parameters. Nucleated RBCs are counted separately from the WBCs. Corrected WBC is no longer indicated. Testing performed at [address] [place] [address] Host Order: [id number] Monocytes/100 WBC (Bld) 7.3 % Normal 5.3-12.2 [facility] Comment on above: Order Comment: Immature Gran parameters reflect the combination of Metas, Myelos, and Promyelocytes and should be used in conjunction with other current indicators for the diagnosis of infection/inflammation. Bands are not included in the Immature Gran parameters. They are included with the Neutrophil parameters. Nucleated RBCs are counted separately from the WBCs. Corrected WBC is no longer indicated. [place] [address] Host Order: [id number] Neutrophils (Bld) [#/Vol] 6.22 10*3/uL High 1.80-5.40 [facility] Comment on above: Order Comment: Immature Gran parameters reflect the combination of Metas, Myelos, and Promyelocytes and should be used in conjunction with other current indicators for the diagnosis of infection/inflammation. Bands are not included in the Immature Gran parameters. They are included with the Neutrophil parameters. Nucleated RBCs are counted separately from the WBCs. Corrected WBC is no longer indicated. Testing performed at [facility], [facility] [place] [id number] Host Order: [id number] Neutrophils/100 WBC (Bld) 74.3 % High 34.0-67.9 [facility] Comment on above: Order Comment: Immature Gran parameters reflect the combination of Metas, Myelos, and Promyelocytes and should be used in conjunction with other current indicators for the diagnosis of infection/inflammation. Bands are not included in the Immature Gran parameters. They are included with the Neutrophil parameters. Nucleated RBCs are counted separately from the WBCs. Corrected WBC is no longer indicated. Testing performed at [place] [address] [place] [address] Host Order: [id number] Nucleated RBC (Bld) [#/Vol] 0.00 10*3/uL Normal 0.00-0.00 [facility] Comment on above: Order Comment: Immature Gran parameters reflect the combination of Metas, Myelos, and Promyelocytes and should be used in conjunction with other current indicators for the diagnosis of infection/inflammation. Bands are not included in the Immature Gran parameters. They are included with the Neutrophil parameters. Nucleated RBCs are counted separately from the WBCs. Corrected WBC is no longer indicated. Testing performed at [facility], [facility] [place] [address] Host Order: [id number] Nucleated RBC/100 WBC (Bld) [Ratio] 0.0 /100{WBC} Normal 0.0-0.2 [facility] Comment on above: Order Comment: Immature Gran parameters reflect the combination of Metas, Myelos, and Promyelocytes and should be used in conjunction with other current indicators for the diagnosis of infection/inflammation. Bands are not included in the Immature Gran parameters. They are included with the Neutrophil parameters. Nucleated RBCs are counted separately from the WBCs. Corrected WBC is no longer indicated. Testing performed at [facility], [address] [place] [address] Host Order: [id number] Platelet mean volume (Bld) [Entitic vol] 11.0 fL Normal 9.4-12.4 [facility] Comment on above: Order Comment: Immature Gran parameters reflect the combination of Metas, Myelos, and Promyelocytes and should be used in conjunction with other current indicators for the diagnosis of infection/inflammation. Bands are not included in the Immature Gran parameters. They are included with the Neutrophil parameters. Nucleated RBCs are counted separately from the WBCs. Corrected WBC is no longer indicated. Testing performed at [facility], [address] [place] [address] Host Order: [id number] Platelets (Bld) [#/Vol] 228 10*3/uL Normal 163-337 [facility] Comment on above: Order Comment: Immature Gran parameters reflect the combination of Metas, Myelos, and Promyelocytes and should be used in conjunction with other current indicators for the diagnosis of infection/inflammation. Bands are not included in the Immature Gran parameters. They are included with the Neutrophil parameters. Nucleated RBCs are counted separately from the WBCs. Corrected WBC is no longer indicated. Testing performed at [facility], [facility] [address] [address] Host Order: [id number] RBC (Bld) [#/Vol] 5.00 10*6/uL Normal 4.63-6.08 [facility] Comment on above: Order Comment: Immature Gran parameters reflect the combination of Metas, Myelos, and Promyelocytes and should be used in conjunction with other current indicators for the diagnosis of infection/inflammation. Bands are not included in the Immature Gran parameters. They are included with the Neutrophil parameters. Nucleated RBCs are counted separately from the WBCs. Corrected WBC is no longer indicated. Testing performed at [facility], [facility] [address] [address] Host Order: [id number] RDW-SD 36.3 fL Normal 35.1-43.9 [facility] Comment on above: Order Comment: Immature Gran parameters reflect the combination of Metas, Myelos, and Promyelocytes and should be used in conjunction with other current indicators for the diagnosis of infection/inflammation. Bands are not included in the Immature Gran parameters. They are included with the Neutrophil parameters. Nucleated RBCs are counted separately from the WBCs. Corrected WBC is no longer indicated. Testing performed at [facility], [address] [id number] Host Order: [id number] WBC (Bld) [#/Vol] 8.4 10*3/uL Normal 4.2-9.1 [facility] Comment on above: Order Comment: Immature Gran parameters reflect the combination of Metas, Myelos, and Promyelocytes and should be used in conjunction with other current indicators for the diagnosis of infection/inflammation. Bands are not included in the Immature Gran parameters. They are included with the Neutrophil parameters. Nucleated RBCs are counted separately from the WBCs. Corrected WBC is no longer indicated. Testing performed at [facility], [address] [place] [address] Host Order: [id number] EST Glomerular Filtration Ra tulio 04-03-2019 GFR/1.73 sq M predicted among non-blacks MDRD (S/P/Bld) [Vol rate/Area] mL/min/{1.73_m2} Normal >60 [facility] Comment on above: Order Comment: Marilyn medina Order: [id number] The calculated GFR uses the (IDMS)-traceable creatinine MDRD equation and is reported in mL/min/1.73 square meters. This formula is not recommended for use with individuals with unstable creatinine concentrations, extremes in muscle mass and/or body size, or alternative diets and may not be suitable for all patient populations. Testing performed at [facility], [place] [address] Result Comment: The reported eGFR is based on a non- patient, for Americans multiply the result by 1.212. POC GLUCOSEon 04-03-2019 Glucose [Mass/Vol] 296 mg/dL High 74-106 [facility] Comment on above: Order Comment: Marilyn medina Order: [id number] Screw Remover Name Marjorie Barboza RN [facility] Comment on above: Order Comment: Marilyn medina Order: [id number] Glucose [Mass/Vol] 128 mg/dL High 74-106 [facility] Comment on above: Order Comment: Marliyn medina Order: [id number] Screw Remover Name Butch Mcmahon RN [facility] Comment on above: Order Comment: Marilyn medina Order: [id number] Troponin Ion 04-03-2019 Troponin I.cardiac [Mass/Vol] ng/mL Normal <0.05 [facility] Comment on above: Order Comment: Testi ng performed at [facility], [address] [place] [address] Host Order: [id number] Result Comment: Trop onin I appears to be elevated only in diseases that directly involve the heart. Diagnosis of Myocardial infarction should include measurement of these cardiac proteins, as well as patient history, and EKG. Abnormal troponin values were established based upon the 99th percentile findings for this assay. Urinalysis w/rfx Cultureon 1 06-04-2018 Appearance (U) Clear Normal Clear [facility] Comment on above: Order Comment: Testi ng performed at [facility], [address] [place] [address] Host Order: [id number] Bilirubin, Urine Negative Normal Negative [facility] Comment on above: Order Comment: Testi ng performed at [facility], [address] [place] [address] Host Order: [id number] Color (U) Yellow Normal [facility] Comment on above: Order Comment: Testi ng performed at [facility], [address] [place] [address] Host Order: [id number] Glucose Ql (U) Trace Abnormal Negative [facility] Comment on above: Order Comment: Testi ng performed at [facility], [address] [place] [address] Host Order: [id number] Hemoglobin, Urine Negative Normal Negative [facility] Comment on above: Order Comment: Testi ng performed at [facility], [address] [place] [address] Host Order: [id number] Ketone, Urine Negative Normal Negative [facility] Comment on above: Order Comment: Testi ng performed at [facility], [address] [place] [address] Host Order: [id number] Leukocytes, Urine Negative Normal Negative [facility] Comment on above: Order Comment: Testi ng performed at [facility], [address] [place] [address] Host Order: [id number] Nitrite, Urine Negative Normal Negative [facility] Comment on above: Order Comment: Testi ng performed at [facility], [address] [place] [address] Host Order: [id number] pH (U) 6.5 [pH] Normal 5.0-8.0 [facility] Comment on above: Order Comment: Testi ng performed at [facility], [address] [place] [id number] Host Order: [id number] Protein (U) [Mass/Vol] Negative Normal Negative [facility] Comment on above: Order Comment: Testi ng performed at [facility], [address] [place] [id number] Host Order: [id number] Specific Anthon, Urine 1.020 Normal 1.005-1.030 [facility] Comment on above: Order Comment: Testi ng performed at [facility], [address] [place] [address] Host Order: [id number] Specimen Type, Urine Clean Catch Normal [facility] Comment on above: Order Comment: Testi ng performed at [facility], [address] [place] [address] Host Order: [id number] Urobilinogen, Urine 0.2 {EhrlichU}/dL Normal 0.2-1.0 [facility] Comment on above: Order Comment: Testi ng performed at [facility], [address] [place] [id number] Host Order: [id number] Vital Signs Date Time Vital Sign Value Performing Clinician Claudia lity 06-10-2024 10:25-0500 Body height 180.3 cm Pearl Carvalho MD Work Phone: [facility] 06-10-2024 10:25-0500 Body mass index (BMI) [Ratio] 29.33 kg/m2 Pearl Carvalho MD Work Phone: [facility] [employer] [facility] 06-10-2024 10:25-0500 Body weight 95.35 kg Pearl [facility]valho MD [facility] 06-10-2024 10:25-0500 Diastolic blood pressure 60 mm[Hg] Pearl Carvalho MD Work Phone: [facility] [employer] 06-10-2024 10:25-0500 Heart rate 96 /min Pearl Carvalho MD Work Phone: [facility] [employer] 06-10-2024 10:25-0500 SaO2% (BldA) [Mass fraction] 99 % Pearl Carvalho MD Work Phone: [facility] [employer] 06-10-2024 10:25-0500 Systolic blood pressure 96 mm[Hg] Pearl Carvalho MD Work Phone: [facility] [employer] [facility] 05-21-2024 08:12-0500 Body height 180.3 cm Francia Jett PA Work Phone: [facility] [employer] 05-21-2024 08:12-0500 Body mass index (BMI) [Ratio] 28.98 kg/m2 Francialinda Usley PA [facility]: [facility] 05-21-2024 08:12-0500 Body weight 94.26 kg Francialinda Jett PA Work Phone: [facility] [employer] 05-21-2024 08:12-0500 Diastolic blood pressure 84 mm[Hg] Francialinda Usley PA Work Phone: [facility] [employer] 05-21-2024 08:12-0500 Heart rate 94 /min Francialinda Usley PA [facility] 05-21-2024 08:12-0500 SaO2% (BldA) [Mass fraction] 99 % Francialinda Usley PA Work [facility] 05-21-2024 08:12-0500 Systolic blood pressure 123 mm[Hg] Francialinda Usley PA [facility] 06-21-2023 11:08-0500 Body height 180.3 cm Francialinda Usley PA [facility] 06-21-2023 11:08-0500 Body mass index (BMI) [Ratio] 27.75 kg/m2 Francia Usley PA Work Phone[facility] 06-21-2023 11:08-0500 Body temperature 97 [degF] Francialinda Usley PA Work Phone: [facility] 06-21-2023 11:08-0500 Body weight 90.27 kg Francia Usley PA [facility] 06-21-2023 11:08-0500 Diastolic blood pressure 61 mm[Hg] Francialinda Usley PA Work Phone: [facility] 06-21-2023 11:08-0500 Heart rate 100 /min Francialinda Usley PA [facility] 06-21-2023 11:08-0500 SaO2% (BldA) [Mass fraction] 98 % Francia Usley PA Work [facility] 06-21-2023 11:08-0500 Systolic blood pressure 109 mm[Hg] Francia Usley PA [facility] 06-17-2023 12:00-0500 Body temperature 98.2 [degF] Tayler Lorenzanaton DO Work Phone: [facility] 06-17-2023 12:00-0500 Heart rate 104 /min Tayler Pipe DO Work [facility] 06-17-2023 12:00-0500 Respiratory rate 22 /min Tayler Pipe DO Work Phone: [facility] 06-17-2023 12:00-0500 SaO2% (BldA) [Mass fraction] 92 % Tayler Pipe DO Work Phone[facility] 06-17-2023 11:00-0500 Diastolic blood pressure 99 mm[Hg] Tayler Pipe DO Work Phone[facility] 06-17-2023 11:00-0500 Systolic blood pressure 154 mm[Hg] Tayler Betancur DO Work Phone: [facility] 06-17-2023 00:00-0500 Body mass index (BMI) [Ratio] 27.27 kg/m2 Tayler Betancur DO Work Phone: [facility] 06-17-2023 00:00-0500 Body weight 88.7 kg Tayler Betancur DO Work Phone: [facility] 06-16-2023 10:58-0500 Body height 180.3 cm Tayler Betancur DO Work Phone: [facility] 06-16-2023 03:25-0500 Body temperature 98.6 [degF] Tayler Betancur DO Work Phone: [facility] 06-16-2023 03:25-0500 SaO2% (BldA) [Mass fraction] 96 % Tayler Betancur DO [facility] 06-16-2023 01:14-0500 Body temperature 98.6 [degF] Tayler Betancur DO Work Phone: [facility] 06-16-2023 01:14-0500 SaO2% (BldA) [Mass fraction] 94 % Tayler Betancur DO Work Phone: [facility] 06-15-2023 21:14-0500 Body temperature 98.6 [degF] Tayler Betancur DO Work Phone: [facility] 06-15-2023 21:14-0500 SaO2% (BldA) [Mass fraction] 98 % Tayler Betancur DO Work Phone: [facility] Encounters Encounter Date Encounter Type Care Provider Facility Start: 07-27-2024 End: 07-27-2024 Refill Francia BYRNE Work Phone: [facility] Comment on above: Nausea and vomiting, unspecified vomiting type Start: 07-01-2024 End: 07-01-2024 ambulatory [facility] Start: 06-10-2024 End: 06-10-2024 Office outpatient new 45 minutes Pearl Carvalho MD Work Phone: [facility] Comment on above: Abnormal stress ECG (Primary Dx); Family history of GA (myocardial infarction); Chest pain, unspecified type Start: 06-10-2024 End: 06-10-2024 [facility] Comment on above: Med Refill Start: 06-09-2024 End: 06-09-2024 Orders Only Francia BYRNE Work Phone: [facility] Comment on above: Positive cardiac str ess test (Primary Dx) Start: 06-06-2024 End: 06-06-2024 ambulatory FRANCIA JETT [facility] Start: 05-21-2024 End: 05-21-2024 Office outpatient visit 25 minutes Francia BYRNE Work Phone: [facility] Comment on above: Family history of GA (myocardial infarction) (Primary Dx); Nausea and vomiting, unspecified vomiting type; Overweight (BMI 25.0-29.9); Need for vaccination Start: 05-21-2024 End: 05-21-2024 ambulatory FRANCIA JETT [facility] Start: 05-14-2024 End: 05-14-2024 ambulatory MIKE RICKY [facility] Start: 06-21-2023 End: 06-21-2023 Transitional care manage srvc 7 day discharge Francia BYRNE Work Phone: [facility] Comment on above: Diabetic ketoacidosi s without coma associated with type 1 diabetes mellitus (CMS-HCC) (Primary Dx); Liver hemangioma - repeat MRI 07/2020; Overweight (BMI 25.0-29.9); Moderate major depression (CMS-HCC); MALIK (generalized anxiety disorder) Start: 06-21-2023 End: 06-21-2023 ambulatory FRANCIA JETT [facility] Start: 06-15-2023 End: 06-17-2023 Evaluation and management of inpatient Emilia Holguin DO Work Phone: [facility] - GEN 7 ICU Comment on above: Diabetic ketoacidosi s without coma associated with type 1 diabetes mellitus (CMS-HCC) (Primary Dx) Procedures Date Procedure Procedure Detail Performing Clinician Start: 05-21-2024 Adult depression scr eening assessment Francia BYRNE Work Phone: Start: 05-14-2024 Microalbumin [Mass/v olume] in Urine by Test strip Francia BYRNE Work Phone: Start: 06-21-2023 Adult depression scr eening assessment Francia BYRNE Work Phone: Start: 06-17-2023 Gluc bld gluc mntr d ev cleared fda spec home use Brian Medrano MD Work Phone: Start: 06-17-2023 Comprehensive metabo lic panel Jen Ennis MD Work Phone: Start: 06-17-2023 PROCALCITONIN Talyer Betancur DO Work Phone: Start: 06-16-2023 Gluc bld gluc mntr d ev cleared fda spec home use Brian Medrano MD Work Phone: Start: 06-16-2023 Gluc bld gluc mntr d ev cleared fda spec home use Brian Medrano MD Work Phone: Start: 06-16-2023 End: 06-16-2023 Gluc bld gluc mntr dev cleared fda spec home use Brian Medrano MD Work Phone: Start: 06-16-2023 End: 06-16-2023 Electrolyte panel Graham Estrada DO Work Phone: Start: 06-16-2023 Radiologic exam ches t single view Jen Ennis MD Work Phone: Start: 06-16-2023 End: 06-16-2023 Gluc bld gluc mntr dev cleared fda spec home use Brian Medrano MD Work Phone: Start: 06-16-2023 End: 06-16-2023 Electrolyte panel Jen Ennis MD Work Phone: Start: 06-16-2023 End: 06-16-2023 Electrolyte panel Jen Ennis MD Work Phone: Start: 06-16-2023 End: 06-16-2023 Culture bacterial blood aerobic w/id isolates Jen Ennis MD Work Phone: Start: 06-16-2023 Blood gases any comb ination ph pco2 po2 co2 hco3 Brian Medrano MD Work Phone: Start: 06-16-2023 End: 06-16-2023 Gluc bld gluc mntr dev cleared fda spec home use Brian Medrano MD Work Phone: Start: 06-16-2023 Blood gases any comb ination ph pco2 po2 co2 hco3 Brian Medrano MD Work Phone: Start: 06-16-2023 End: 06-16-2023 Comprehensive metabolic panel Jen Ennis MD Work Phone: Start: 06-15-2023 SARS/FLU A+B/RSV BY NAAT/MOLECULAR (M4RT COLLECTION TUBE) Roger fawn DO Work Phone: Start: 06-15-2023 End: 06-15-2023 Potassium serum plasma/whole blood Roger Lopez DO Work Phone: Start: 06-15-2023 Urnls dip stick/tabl et rgnt auto w/o microscopy Emilia Holguin DO Work Phone: Start: 06-15-2023 Blood gases any comb ination ph pco2 po2 co2 hco3 Emilia Holguin DO Work Phone: Start: 06-15-2023 ER EXTRA URINE Roger huggins DO Work Phone: Start: 06-15-2023 Ecg routine ecg w/le ast 12 lds trcg only w/o i&r Roger Lopez DO Work Phone: Start: 06-15-2023 Basic metabolic pane l calcium total Roger Lopez DO Work Phone: Start: 11-21-2021 Microalbumin [Mass/v olume] in Urine by Test strip Francia BYRNE Work Phone: Start: 05-12-2021 Diabetic retinal eye exam Francia BYRNE Work Phone: Plan of Treatment Date Care Activity Detail Author Start: 11-23-2030 DTaP,Tdap and Td Vaccines (7 - Td or Tdap) DTaP,Tdap and Td Vaccines (7 - Td or Tdap) [facility] Start: 06-10-2025 Adult BMI Screening Adult BMI Screen ing [facility] Start: 06-10-2025 Tobacco Screening Tobacco Screening [facility] Start: 06-06-2025 Adult BMI Screening Adult BMI Screen ing [facility] Start: 05-21-2025 Adult BMI Follow Up Plan Adult BMI Follow Up Plan [facility] Start: 05-21-2025 Adult BMI Screening Adult BMI Screen ing [facility] Start: 05-21-2025 Depression Screening Depression Scre ening [facility] Start: 05-21-2025 Tobacco Screening Tobacco Screening [facility] Start: 05-14-2025 Urine screening for protein Urine Microalbumin [facility] Start: 08-27-2024 End: 08-27-2024 Patient encounter procedure 08/27/2024 1:00 PM EDT Office Visit [facility] [address] [place] [address] Pearl Carvalho MD [address] [place] [address] [facility] Start: 07-01-2024 End: 07-01-2024 Patient encounter procedure 07/01/2024 2:00 PM EDT Appointment [facility] [address] [place] [address] [facility] Start: 06-20-2024 Adult BMI Follow Up Plan Adult BMI Follow Up Plan [facility] Start: 06-20-2024 Adult BMI Screening Adult BMI Screen ing [facility] Start: 06-20-2024 Depression Screening Depression Scre ening [facility] Start: 06-20-2024 Tobacco Screening Tobacco Screening [facility] Start: 06-19-2024 End: 06-19-2024 Patient encounter procedure 06/19/2024 12:40 PM EST Office Visit [facility] [address] [place] [phone] Francia Jett PA [address] [place], [place] [phone] [facility] Start: 06-10-2024 End: 06-10-2025 CTA Heart and Coronary arteries WO and W contrast IV CT angiogram coronary arteries with or without scoring Imaging Routine Family history of GA (myocardial infarction) Abnormal stress ECG Chest pain, unspecified type Expected: 06/10/2024, Expires: 06/10/2025 [facility] Work Phone: Comment on above: Expected: 06/10/2024 , Expires: 06/10/2025 Start: 05-21-2024 End: 05-21-2025 Exercise stress test study Stress test (exercise only) Cardiac Services Routine Family history of GA (myocardial infarction) Expected: 05/21/2024, Expires: 05/21/2025 [facility] Work Phone: Comment on above: Expected: 05/21/2024 , Expires: 05/21/2025 Start: 08-20-2023 End: 08-20-2023 Patient encounter procedure 08/20/2023 3:20 PM EDT [facility] [address] [place], [place] [address] [phone] Francia Jett PA [address] [place] [id number] [facility] Start: 07-22-2023 Influenza vaccination Influenza Vacc ine [facility] [employer] [facility] Comment on above: Postponed from 12/22 (Vaccine Not Available) Start: 06-21-2023 End: 06-20-2024 MR Abdomen WO and W contrast IV MR abdomen with and without contrast Imaging Routine Liver hemangioma - repeat MRI 07/2020 Expected: 06/21/2023, Expires: 06/20/2024 [facility] Work Phone: Comment on above: Expected: 06/21/2023 , Expires: 06/20/2024 Start: 06-20-2023 End: 06-20-2023 Patient encounter procedure 06/20/2023 11:20 AM EST Office Visit [facility] [address] [place] [phone] Francia Jett PA [address] [place] [phone] [facility] Start: 11-21-2022 Urine screening for protein Urine Microalbumin [facility] [employer] [facility] Start: 05-12-2022 Glaucoma screening Diabetic Op hthalmology Exam [facility] [employer] [facility] Start: 2005 Diabetic foot examination Diabetic Foot Exam [facility] Start: 1987 Tobacco Counseling Tobacco Counselin g [facility] [employer] [facility] Bacteria identified in Blood by Aerobe culture [facility] [employer] [facility] End: 06-16-2023 Basic metabolic 2000 panel - Serum or Plasma Basic Metabolic Panel Lab Routine Once for 1 Occurrences starting 06/16/2023 until 06/16/2023 [facility] Comment on above: Once for 1 Occurrenc es starting 06/16/2023 until 06/16/2023 CBC W Auto Different ial panel - Blood CBC auto differential Lab Routine Lab max of 3 days, Daily, for lab use only until discontinued starting 06/16/2023, 2 completed [facility] Comment on above: Lab max of 3 days, D aily, for lab use only until discontinued starting 06/16/2023, 2 completed Comprehensive metabo lic 2000 panel - Serum or Plasma Comprehensive metabolic panel Lab Routine Lab max of 3 days, Daily, for lab use only until discontinued starting 06/16/2023, 2 completed [facility] Comment on above: Lab max of 3 days, D aily, for lab use only until discontinued starting 06/16/2023, 2 completed Magnesium [Mass/volu me] in Serum or Plasma Magnesium Lab Routine Lab max of 3 days, Daily, for lab use only until discontinued starting 06/16/2023, 2 completed [facility] Comment on above: Lab max of 3 days, D aily, for lab use only until discontinued starting 06/16/2023, 2 completed Oxygen Therapy - Maintain SpO2: 90%; *WILD OYSTER HARVESTER Guidelines for O2: Yes; Document: \[employer]Ideedock\epi c\EPIC_Reference\Orders\ Respiratory Care Guidelines\CPG Oxygen 2020.pdf Oxygen Therapy - Maintain SpO2: 90%; *WILD OYSTER HARVESTER Guidelines for O2: Yes; Document: \[employer]card [employer]i.[employer].org\ep ic\EPIC_Reference\Order s\Respiratory Care Guidelines\CPG Oxygen 2020.pdf Respiratory Care Routine As Needed until discontinued starting 06/15/2023 [facility] Work Phone: Comment on above: As Needed until disc ontinued starting 06/15/2023 Phosphate [Mass/volu me] in Serum or Plasma Phosphorus Lab Routine Lab max of 3 days, Daily, for lab use only until discontinued starting 06/16/2023, 2 completed [facility] Comment on above: Lab max of 3 days, D aily, for lab use only until discontinued starting 06/16/2023, 2 completed End: 06-16-2023 Protein, urine, random Protein, urine, random Lab Routine Once for 1 Occurrences starting 06/16/2023 until 06/16/2023 [facility] Comment on above: Once for 1 Occurrenc es starting 06/16/2023 until 06/16/2023 End: 06-16-2023 Sodium, urine, random Sodium, urine, random Lab Routine Once for 1 Occurrences starting 06/16/2023 until 06/16/2023 [facility] Comment on above: Once for 1 Occurrenc es starting 06/16/2023 until 06/16/2023 End: 06-16-2023 Urine Creatinine,Rdm Urine Creatinine,Rdm Lab Routine Once for 1 Occurrences starting 06/16/2023 until 06/16/2023 [facility] Comment on above: Once for 1 Occurrenc es starting 06/16/2023 until 06/16/2023 Immunizations Immunization Date Immunization Notes Care Provider [facility] 05-21-2024 influenza, seasonal, injectable, preservative free Francia BYRNE Work Phone: [facility] 05-21-2024 Immunization, In Clinic,; Translations: [Drug or medicament (substance)] Francia BYRNE Work Phone: [facility] 01-17-2022 influenza, injectabl e, quadrivalent, contains preservative Tayler Pipe DO Work Phone: [facility] 01-17-2022 influenza virus vacc ine, unspecified formulation Francia BYRNE Work Phone: [facility] 02-11-2021 influenza, injectabl e, quadrivalent, preservative free Tayler Pipe DO Work Phone: [facility] 02-11-2021 pneumococcal polysaccharide vaccine, 23 valent Tayler Pipe DO Work Phone: [facility] 11-23-2020 tetanus toxoid, redu lito diphtheria toxoid, and acellular pertussis vaccine, adsorbed Tayler Pipe DO Work Phone: [facility] 02-19-2020 influenza, injectabl e, quadrivalent, preservative free Tayler Pipe DO Work Phone: [facility] 2019 influenza virus vacc ine, unspecified formulation Tayler Pipe DO Work Phone: [facility] 2019 influenza, injectabl e, quadrivalent, preservative free Tayler Pipe DO Work Phone: [facility] 08-20-2000 hepatitis B vaccine, adult dosage Tayler Pipe DO Work Phone: [facility] 08-20-2000 hepatitis B vaccine, pediatric or pediatric/adolescent dosage Tayler Pipe DO Work Phone: [facility] 03-19-2000 hepatitis B vaccine, adult dosage Tayler Pipe DO Work Phone: [facility] 03-19-2000 hepatitis B vaccine, pediatric or pediatric/adolescent dosage Tayler Pipe DO Work Phone: [facility] 02-13-2000 hepatitis B vaccine, adult dosage Tayler Pipe DO Work Phone: [facility] 02-13-2000 hepatitis B vaccine, pediatric or pediatric/adolescent dosage Tayler Pipe DO Work Phone: [facility] 07-03-1991 diphtheria, tetanus toxoids and acellular pertussis vaccine Tayler Pipe DO Work Phone: [facility] 07-03-1991 diphtheria, tetanus toxoids and pertussis vaccine Tayler Pipe DO Work Phone: [facility] 07-03-1991 measles, mumps and rubella virus vaccine Tayler Pipe DO Work Phone: [facility] 07-03-1991 poliovirus vaccine, inactivated Tayler Pipe DO Work Phone: [facility] 07-03-1991 trivalent poliovirus vaccine, live, oral Tayler Pipe DO Work Phone: [facility] 05-10-1990 diphtheria, tetanus toxoids and acellular pertussis vaccine Tayler Pipe DO Work Phone: [facility] 05-10-1990 diphtheria, tetanus toxoids and pertussis vaccine Tayler Pipe DO Work Phone: [facility] 05-10-1990 measles, mumps and rubella virus vaccine Tayler Pipe DO Work Phone: [facility] 05-10-1990 poliovirus vaccine, inactivated Tayler Pipe DO Work Phone: [facility] 05-10-1990 trivalent poliovirus vaccine, live, oral Tayler Pipe DO Work Phone: [facility] 01-13-1988 diphtheria, tetanus toxoids and acellular pertussis vaccine Tayler Pipe DO Work Phone: [facility] 01-13-1988 diphtheria, tetanus toxoids and pertussis vaccine Tayler Pipe DO Work Phone: [facility] 1987 diphtheria, tetanus toxoids and acellular pertussis vaccine Tayler Pipe DO Work Phone: [facility] 1987 diphtheria, tetanus toxoids and pertussis vaccine Tayler Pipe DO Work Phone: [facility] 1987 poliovirus vaccine, inactivated Tayler Pipe DO Work Phone: [facility] 1987 trivalent poliovirus vaccine, live, oral Tayler Pipe DO Work Phone: [facility] 1987 diphtheria, tetanus toxoids and acellular pertussis vaccine Tayler Pipe DO Work Phone: [facility] 1987 diphtheria, tetanus toxoids and pertussis vaccine Tayler Pipe DO Work Phone: [facility] 1987 poliovirus vaccine, inactivated Tayler Pipe DO Work Phone: [facility] 1987 trivalent poliovirus vaccine, live, oral Tayler Pipe DO Work Phone: [facility] Payers Date Payer Category Payer Managed Care Other (unspecified) [facility] [id number] 2023 Private Health Insurance [facility] [id number] 2023-Present [phone] [address] [address] [place] [address] [id number] 2023 Private Health Insurance [id number] 1987 Unknown [id number] 1987 Unknown [id number] 1987 Unknown [id number] 1987 Unknown [id number] 1987 Unknown [id number] 1987 Unknown [id number] 1987 Unknown [id number] Social History Date Type Detail Facility Start: 05-16-2022 Tobacco smoking stat [facility] Never smoked tobacco [facility] Start: 05-16-2022 Tobacco use and exposure User of smokeless tobacco [facility] History of tobacco use Chews Tobacco [facility] Start: 05-21-2024 End: 06-06-2024 Alcoholic beverage intake Current drinker of alcohol (finding) [facility] Start: 06-03-2020 End: 06-16-2023 History of Social function [facility] Start: 06-03-2020 End: 06-16-2023 [facility] Has the electric, ga s, oil, or water [employer] threatened to shut off services in your home in past 12Mo No [facility] Frequency of Communi cation with Friends and Family Three times a week [facility] Start: 01-20-2019 Education 15 [facility] Start: 2019 Alcohol Comment very rarely, social [facility] Start: 1987 Sex assigned at Not on file [facility] [employer] [facility] [employer] [facility] Start: 11-24-2014 Sex Male (finding) [facility] Start: 06-10-2024 Alcoholic beverage intake Ex-drinker (finding) [facility] Procedure Code Equipment Code Equipment Origin al Text Equipment Identifier Dates Lens Iol 0 D +22 .5 D Mod L Bicvx Acrsf Iq Ntr [employer] [facility] [id number] - [id number] - [id number] Start: 01-27-2022 Goals Date Patient Goal Desired Activity /State Personal health goal Comment on above: Formatting of this n ote might be different from the original. Evaluation of progress towards goal: Pt's spouse plans on pt discharging home with self care and with family support Clinical Notes 07-22-2020 to 06-10-2024 Telephone Encounter - Eve Page RN - 06/10/2024 10:58 AM ESTTelephone Encounter - Eve Page RN - 06/10/2024 10:58 AM Dariusz Carvalho MD - 06/10/2024 10:30 AM ESTDischarge Instructions Note Date & Type Note Facility 06-10-2024 Miscellaneous Notes Please sign and route. Ordered per AAJ for CTA cors at [facility] today 06/10/24. Thank you. documented in this encounter [facility] 06-10-2024 Telephone encounter Note Please sign and route. Ordered per AAJ for CTA cors at [facility] today 06/10/24. Thank you. [facility] 02-18-2025 History of Presen t illness Narrative Willy Presley Jr. Date of visit: 06/10/2024 Date of : 1985 Age: 39 y.o. Patient Active Problem List Diagnosis Normocytic anemia Uncontrolled type 1 diabetes mellitus with hyperglycemia (CMS-HCC) Hydronephrosis of right kidney Liver lesion, left lobe Chewing tobacco use Liver hemangioma - repeat MRI 07/2020 Overweight (BMI 25.0-29.9) Erectile dysfunction Moderate major depression (CMS-HCC) MALIK (generalized anxiety disorder) Adhesive capsulitis of right shoulder Adhesive capsulitis of left shoulder Primary hypertension Cataract of left eye Diabetic ketoacidosis without coma associated with type 1 diabetes mellitus (CMS-HCC) Abnormal stress ECG Family history of GA (myocardial infarction) Chest pain No Known Allergies Current Outpatient Medications Medication Sig Dispense Refill DEXCOM G6 SENSOR device DEXCOM G6 TRANSMITTER device USE ONE EVERY 3 MONTHS insulin glargine (LANTUS, SEMGLEE) 100 unit/mL (3 mL) insulin pen Inject 16 Units under the skin in the morning and 16 Units before bedtime. 15 mL 12 insulin lispro (HumaLOG) 100 unit/mL injection Up to 133 units daily via pump omeprazole (PriLOSEC) 20 mg capsule Take 1 capsule (20 mg total) by mouth in the morning. 90 capsule 0 ondansetron ODT (ZOFRAN ODT) 4 mg disintegrating tablet Dissolve 1 tablet (4 mg total) on tongue every 8 (eight) hours as needed for nausea for up to 10 doses. 10 tablet 0 venlafaxine XR (EFFEXOR XR) 75 mg 24 hr capsule Take 1 capsule (75 mg total) by mouth in the morning. 90 capsule 1 atorvastatin (LIPITOR) 10 mg tablet Take 1 tablet (10 mg total) by mouth in the morning. (Patient not taking: Reported on 06/10/2024) 30 tablet 11 No current facility-administered medications for this visit. 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 He was having some symptoms, underwent stress test which is reported abnormal and he is here to discuss further. His father last year with heart attack, he was smoker. His uncle also had heart attack. Multiple other family members including grandparents have coronary artery disease. Past several months he was having some brief episodes of tightness in his left upper chest, he thought it might be muscle cramps but lately it was more noticeable. He works in rare load with lot of clamping. Sometimes he feels similar pain even when sitting and resting. He denies any shortness of breath, palpitations, orthopnea/PND. No pedal edema. He never smoked. Does not do any formal exercise. His lipids were slightly abnormal, was started on low-dose statin therapy but subsequently stop date. I reviewed his stress test, he achieved 12 Mets, exercised for 10 minutes and felt slightly short of breath. I do not see any convincing ischemic changes on EKG. Past Medical History: Diagnosis Date Anxiety Diabetes mellitus type I ([facility]) Visual impairment GLASSES No data recorded No data recorded No data recorded Past Surgical History: Procedure Laterality Date EXTRACTION CATARACT INTRAOCULAR LENS Left 01/27/2022 Performed by Matt Holden MD at [facility] Left 08/27/2020 Performed by Eugene Lopez MD at [facility] Right 07/09/2020 Performed by Eugene Lopez MD at [facility] TO[facility] Right 11/2017 right foot, big toe, surgery after having an infection from a bug bite Family History Problem Relation Age of Onset Heart disease Father Diabetes Father Heart attack Father Diabetes Paternal Aunt Heart disease Paternal Uncle Heart attack Paternal Uncle Diabetes Paternal Uncle Anesthesia problems Neg Hx Social History Socioeconomic History Marital status: Spouse name: Not on file Number of children: Not on file Years of education: Not on file Highest education level: Associate degree: occupational, technical, or vocational program Occupational History Not on file Tobacco Use Smoking status: Never Smokeless tobacco: Current Types: Chew Vaping Use Vaping status: Never Used Substance and Sexual Activity Alcohol use: Not Currently Comment: very rarely, social Drug use: Never Sexual activity: Defer Other Topics Concern Caffeine Use Yes Social History Narrative Not on file Social Drivers of Health Financial Resource Strain: Low Risk (01/20/2019) Overall Financial Resource Strain (CARDIA) Difficulty of Paying Living Expenses: Not very hard Food Insecurity: No Food Insecurity (05/21/2024) Hunger Screening Food Insecurity - Worry: Never True Food Insecurity - Inability: Never True Transportation Needs: No Transportation Needs (06/16/2023) PRAPARE - Transportation Lack of Transportation (Medical): No Lack of Transportation (Non-Medical): No Physical Activity: Insufficiently Active (01/20/2019) Exercise Vital Sign Days of Exercise per Week: 2 days Minutes of Exercise per Session: 20 min Stress: Stress Concern Present (01/20/2019) [place] [employer] - Occupational Stress Questionnaire Feeling of Stress : To some extent Social Connections: Somewhat Isolated (01/20/2019) Social Connection and Isolation Panel [NHANES] Frequency of Communication with Friends and Family: Three times a week Frequency of Social Gatherings with Friends and Family: Once a week Attends Caodaism Services: Never Active Member of Clubs or Organizations: No Attends Club or Organization Meetings: Never Marital Status: Interpersonal Safety: Patient Declined (06/16/2023) Humiliation, Afraid, Rape, and Kick questionnaire Fear of Current or Ex-Partner: Patient declined Emotionally Abused: Patient declined Physically Abused: Patient declined Sexually Abused: Patient declined Housing Instability: Low Risk (06/16/2023) Housing Instability Housing Instability: No Review of Systems Review of Systems Constitutional: Positive for malaise/fatigue (more within the past 6 months). HENT: Negative for nosebleeds. Respiratory: Negative for cough, shortness of breath and wheezing. Hematologic/Lymphatic: Does not bruise/bleed easily. Musculoskeletal: Negative for joint pain, joint swelling, muscle cramps and muscle weakness. Gastrointestinal: Positive for nausea (occ). Negative for bloating, abdominal pain, constipation, diarrhea, heartburn, hematochezia and vomiting. Genitourinary: Negative for hematuria. Neurological: Negative for dizziness, headaches and light-headedness. Vascular: Negative for claudication and lower extremity wounds or ulcers. CARDIOVASCULAR: Please review HPI. Physical Examination General appearance: Alert, oriented and cooperative. In no acute distress. Skin: Warm and dry to touch. Head: Normocephalic, without obvious abnormality, atraumatic. Ears, Nose, Mouth, Throat: Throat clear without erythema or exudate. Dentition intact. Eyes: Conjunctivae unremarkable, EOM intact. Neck: No JVD, No carotid bruit. Neck supple, trachea midline. Respiratory: Clear to auscultation bilaterally, no use of accessory muscles. Cardiovascular: RRR with normal S1 and S2 with no murmurs. Gastrointestinal: Soft, non-tender. Bowel sounds normal. Musculoskeletal: No peripheral edema. Neurologic: Oriented to time, person and place, affect appropriate. No focal/major motor defects noted. Psychiatric: Appropriate mood, memory and judgement. VITAL SIGNS: BP 96/60 Pulse 96 Ht 180.3 cm (5' 10.98 ) Wt 95.3 kg (210 lb 3.2 oz) SpO2 99% BMI 29.33 kg/m No orders of the defined types were placed in this encounter. There are no discontinued medications. IMPRESSIONS/PLAN 1. Family history of [place] (myocardial infarction) - [facility] - [place], [place] - CT angiogram coronary arteries with or without scoring; Future 2. Abnormal stress ECG - CT angiogram coronary arteries with or without scoring; Future 3. Chest pain, unspecified type - CT angiogram coronary arteries with or without scoring; Future -chest pain/abnormal stress test: Multiple risk factors for ASCVD. -type 2 diabetes: -family history of coronary artery disease: -overweight: BMI 29. Recommendations: Considering above, will proceed with coronary CTA. I discussed testing and if results are suggestive of stenotic coronary artery disease, he will need coronary angiogram. If there is elevated calcium score but no significant stenosis, I will start him on low-dose aspirin and statin therapy. Would recommend dietary modifications. Follow-up in [address] scan is normal. TODAYS ORDERS Orders Placed This Encounter Procedures CT angiogram coronary arteries with or without scoring FOLLOW UP Return in about 1 year (around 06/10/2025). PCP: CATY OSEGUERA Referring Physician: CATY Oseguera [address] [place] [address] documented in this encounter [facility] 05-21-2024 History of Presen t illness Narrative [facility] Patient: Willy Presley Jr. : 1985 Patient Care Team: CTAY Oseguera as PCP - General (Physician Professor Of Geology) Valeriy Frey DPM as Consulting Physician (Podiatry) No Patient Care Coordination Note on file. Current concerns: Chief Complaint Patient presents with Regular check up He just recently lost his father due to a heart attack and his uncle had a heart attack and he would like to discuss this with his PCP HPI: Willy Presley Jr. is a 39 y.o. male who presents for evaluation of follow up. Patient states his father from [place] in December at age 60, as well as his paternal uncle had a heart attack 1 month later at age 58. Due for flu vaccination today. Denies dizziness, syncope, chest pain, shoulder pain, neck pain, jaw pain, shortness of breath, reflux, abdominal. Sometimes has nausea with physical activity and cold air x 1 year. No hypo or hyperglycemia with symptoms. No recently changes to diet. Last episode was 1 month ago. ROS: 14 systems reviewed with patient and all are negative except what is listed in HPI Patient Active Problem List Diagnosis Normocytic anemia Uncontrolled type 1 diabetes mellitus with hyperglycemia ([facility]) Hydronephrosis of right kidney Liver lesion, left lobe Chewing tobacco use Liver hemangioma - repeat MRI 07/2020 Overweight (BMI 25.0-29.9) Erectile dysfunction Moderate major depression ([facility]) MALIK (generalized anxiety disorder) Adhesive capsulitis of right shoulder Adhesive capsulitis of left shoulder Primary hypertension Cataract of left eye Diabetic ketoacidosis without coma associated with type 1 diabetes mellitus ([facility]) Current Outpatient Medications on File Prior to Visit Medication Sig Dispense Refill DEXCOM G6 SENSOR device DEXCOM G6 TRANSMITTER device USE ONE EVERY 3 MONTHS insulin glargine (LANTUS, SEMGLEE) 100 unit/mL (3 mL) insulin pen Inject 16 Units under the skin in the morning and 16 Units before bedtime. 15 mL 12 insulin lispro (HumaLOG) 100 unit/mL injection Up to 133 units daily via pump ondansetron ODT (ZOFRAN ODT) 4 mg disintegrating tablet Dissolve 1 tablet (4 mg total) on tongue every 8 (eight) hours as needed for nausea for up to 10 doses. 10 tablet 0 venlafaxine XR (EFFEXOR XR) 75 mg 24 hr capsule Take 1 capsule (75 mg total) by mouth in the morning. 90 capsule 1 No current facility-administered medications on file prior to visit. No Known Allergies Social History Tobacco Use Smoking Status Never Smokeless Tobacco Current Types: Chew Social History Tobacco Use Smoking status: Never Smokeless tobacco: Current Types: Chew Vaping Use Vaping status: Never Used Substance Use Topics Alcohol use: Yes Comment: very rarely, social Drug use: Never Physical Exam: Vitals: Vitals: 05/21/24 0812 BP: 123/84 Pulse: 94 SpO2: 99% Weight: Wt Readings from Last 3 Encounters: 05/21/24 94.3 kg (207 lb 12.8 oz) 06/21/23 90.3 kg (199 lb) 06/17/23 88.7 kg (195 lb 8.8 oz) BMI: Body mass index is 28.98 kg/m . GENERAL: Appropriate affect, well nourished, NAD HEAD: NC/NT EYES: PERRL, EOMI, conjunctivae clear LUNG: CTAB, no W/R/R HEART: S1+S2+, RRR, no murmur ABDOMEN/GI: +BS, soft, NT/ND, no rebound or guarding SKIN: no rashes PSYCH: responding appropriately. Good eye contact NEURO: A&O x 3 Assessment and Plan: Will was seen today for regular check up . Diagnoses and all orders for this visit: Family history of [place] (myocardial infarction) - Stress test (exercise only); Future - [facility] - [place], [place]; Future - given strong family hx of CAD, will check stress testing and refer to cardiology - warning s/s reviewed with patient and ED if worsening Nausea and vomiting, unspecified vomiting type - omeprazole (PriLOSEC) 20 mg capsule; Take 1 capsule (20 mg total) by mouth in the morning. - trial prilosec - keep food diary - consider imaging and EGD if not improving or worsening Overweight (BMI 25.0-29.9) - dietary information provided on AVS Need for vaccination - FLU VACCINE TS (6MOS UP)(PF) 45 MCG(15MCG X3)/0.5 ML IM SYRINGE Patient noted to have elevated BMI and the following intervention(s) were applied: encouragement to exercise and prescribed diet education. Patient instructed to return to clinic as needed or if symptoms do not improve or worsen. Follow up for HME or sooner as needed CATY Oseguera 05/21/24 0856 After obtaining consent, and per orders of Francia Jett PA-C, injection of Flu vaccine given by Nilsa Cotto MA. documented in this encounter [facility] [employer] [facility] 06-21-2023 History of Presen t illness Narrative Subjective Patient ID: Willy Presley . is a 38 y.o. male. The patient is here today for discharge follow up from hospital. Transition of Care Med Rec completed? Yes Discharged medications: Medications have been reviewed and reconciled with the most recent facility discharge document. Patient was admitted from for DKA. He presented to the ED with hyperglycemia. Uses insulin pump. He used 70 units of insulin, and hyperglycemia persisted. His last BG prior to arrival was in the 400s. Also reported nausea, vomiting, polydipsia. He was placed on insulin infusion until glucose improved. He was transitioned back to insulin pump, and given extra rx for long acting insulin to use as needed. He has endo appointment on 07/07/23. Today, he states hyperglycemia has resolved. His BG right now is 163. No recent imaging for liver hemangioma. Previously ordered, but patient never scheduled. Previous order . Requesting refill today of effexor. PHQ2 = 0. He feels safe at home. No SI/HI. The following portions of the patient's history were reviewed and updated as appropriate: allergies, current medications, past family history, past medical history, past social history, past surgical history, problem list, and medication reconciliation was completed including current medication and post discharge medication. Review of Systems Constitutional: Negative for chills and fever. HENT: Negative for congestion and rhinorrhea. Respiratory: Negative for cough and shortness of breath. Cardiovascular: Negative for chest pain. Gastrointestinal: Negative for nausea and vomiting. Skin: Negative for rash. Neurological: Negative for headaches. Objective Physical Exam Constitutional: General: He is not in acute distress. Appearance: Normal appearance. He is not ill-appearing. HENT: Head: Normocephalic and atraumatic. Eyes: Conjunctiva/sclera: Conjunctivae normal. Pulmonary: Effort: Pulmonary effort is normal. Musculoskeletal: General: Normal range of motion. Skin: General: Skin is warm and dry. Neurological: General: No focal deficit present. Mental Status: He is alert. Mental status is at baseline. Psychiatric: Mood and Affect: Mood normal. Behavior: Behavior normal. Thought Content: Thought content normal. Judgment: Judgment normal. Assessment/Plan Will was seen today for transition of care. Diagnoses and all orders for this visit: Diabetic ketoacidosis without coma associated with type 1 diabetes mellitus ([facility]) - CBC auto differential; Future - Comprehensive metabolic panel; Future - Lipid panel; Future - Thyroid profile includes TSH FT4; Future - due for screening labs, ordered today - patient states his BG are in his target range - keep follow up with endo Liver hemangioma - repeat MRI 07/2020 - MR abdomen with and without contrast; Future Overweight (BMI 25.0-29.9) - dietary information provided on AVS Moderate major depression (CMS-HCC) - venlafaxine XR (EFFEXOR XR) 75 mg 24 hr capsule; Take 1 capsule (75 mg total) by mouth in the morning. - symptoms well controlled, refill provided today MALIK (generalized anxiety disorder) - venlafaxine XR (EFFEXOR XR) 75 mg 24 hr capsule; Take 1 capsule (75 mg total) by mouth in the morning. Patient noted to have elevated BMI and the following intervention(s) were applied: encouragement to exercise and prescribed diet education. Follow up for HME or sooner as needed Transition of Care (*required) *Additional Questions/Concerns Requiring PCP Follow-Up: N/A This documentation is being used for Transition of Care purposes: Yes Goal: Patient will demonstrate a safe transition from hospital to home. Diagnosis on Discharge: Diabetic Ketoacidosis: resolved Uncontrolled Type I DM : Hyperglycemia: Hgb A1c 9.1 on 06/16/23 Anion Gap Metabolic Acidosis Pertinent Active Diagnoses: Primary HTN Depression /Anxiety Discharge Specialty: Endocrine *Name of Discharging Facility: [facility] Date of Facility Discharge: 06/15/2023 - 06/17/2023 (2 days) Date of Interactive Contact and Name of Antique Clock Repairer: Group Therapist spoke with the patient on 06/19/23 at 12:10 pm. *Medication Review Completed: Yes.the patient's medications were reviewed and the [facility] med list has been updated. Prescriptions have been filled. START taking: insulin glargine (LANTUS, SEMGLEE) to use if Insulin pump is not working. Medication Reconciliation Questions/Concerns: N/A *Follow Up Appointments with Providers: Primary: CATY OSEGUERA 06/20/23 11:20 am Specialty: Dr. Villagran (endocrinology) : TBD patient has appt scheduled in June. Specialty: Specialty: Review of Pending Lab/Diagnostic Tests and Plan for Completion: Final Blood Culture : no growth x 3 days. Assessment and Support of Treatment Regimen Adherence and Medication Management: Per the patient: -Denies nausea , vomiting or abdominal pain. -Believes that the infusion site was blocked and this is why the Insulin pump was not providing him with adequate insulin coverage prior to admission. Pump is working well now. He is carrying Lantus Insulin with him , in case the pump would fail in the future so that he could switch to this method of coverage. -Patient has a Dex Com. States that blood sugars are good since discharge. BS right now is 145. 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 -Denies chest pain or shortness of breath . -States that his pulse rate always runs between 95-110, is not feeling palpitations, chest discomfort or shortness of breath. -Denies problems with elimination. -Denies any new or worsening symptoms. -The patient is independent with ADL's. He lives with his . -He denies any DME needs at this time. -Has transportation to medical appts. . Education Provided by AC[facility] to Support Self-Management, Independent Living and ADLs: Instructed to call PCP for new or worsening symptoms. Instructed to call 911 for Chest Pain, Severe Shortness of Breath or Symptoms of CVA. Patient given the Contact information for the Gas Pit Worker Navigator in PCP practice, Cyndee Hathaway, and explained that this RN will be available for 30 days post hospitalization. Communication with Home Health Agencies and Other Services Utilized/Needed by the Patient: N/A CATY Oseguera 06/21/23 1127 documented in this encounter [facility] 06-17-2023 Nurse Note Patient stable and discharged with to home. All belongings returned to patient. Scripts sent to pharmacy electronically. Patient demonstrated an understanding of all discharge instructions and education. [facility] Nurse Note Patient stable and discharged with to home. All belongings returned to patient. Scripts sent to pharmacy electronically. Patient demonstrated an understanding of all discharge instructions and education. documented in this encounter [facility] 06-17-2023 Hospital course Narrative Inpatient Discharge Summary BRIEF OVERVIEW Admitting Provider: Brian Medrano MD Discharge Provider: Tayler Betancur DO Primary Care Physician at Discharge: CATY OSEGUERA [phone] Admission Date: 06/15/2023 Discharge Date: 06/17/2023 Primary Discharge Diagnosis Diabetic Ketoacidosis Secondary Discharge Diagnosis Uncontrolled T1DM Anion Gap Metabolic Acidosis Discharge Disposition Home Code Status at Discharge: FULL Active Issues Requiring Follow-up Please take your medications as prescribed Please follow-up with your primary care physician in 1 week. Please follow-up with your flue dust laborer in 1-2 weeks Please call your doctor or visit the ED if you notice fever, chills, chest pain, shortness of breath, cough, abdominal pain, nausea, vomiting, and diarrhea. Outpatient Follow-Up Future Appointments Date Time Provider Department Center 06/20/2023 11:20 AM CATY Oseguera [facility] Referrals and Follow-ups to Schedule No dressing needed Test Results Pending at Discharge Pending Labs Order Current Status Blood gas, venous Collected (06/15/232110) Blood gas, venous Collected (06/16/23 0106) Blood gas, venous Collected (06/16/23 0322) POCT Nursing Urine Macroscopic UA Collected (06/15/232112) Blood culture #1 Preliminary result Blood culture #2 Preliminary result DETAILS OF HOSPITAL STAY Presenting Problem/History of Present Illness Tachycardia [R00.0] Diabetic ketoacidosis without coma associated with type 1 diabetes mellitus (CMS-HCC) [E10.10] Hospital Course Willy Presley JrRyan is a 38 y.o. male with a past medical history of uncontrolled type 1 diabetes mellitus, depression, anxiety who presented with high blood sugar. Patient states he has had high blood sugars since 11:00 a.m.. He does use an insulin pump. He states that he is compliant with his insulin pump. He states that today he used 70 units of insulin and hyperglycemia persisted. His last blood sugar at home was in the 400s. He does also report nausea, vomiting, increased thirst. Denies any shortness of breath and chest pain. He does follow with Endocrinology as an outpatient. He states that he has been in DKA before. He reports that he is compliant with his insulin. In the ED, labs were significant for WBC 15, sodium 128, potassium 6.6, chloride 87, CO2 17, glucose 71, creatinine 1.38, BUN 31, anion gap 24, phosphorus 5.8, beta hydroxybutyrate 7.20. UA with glucose greater than 1000 and ketones greater than 160. EKG with sinus tachycardia and peaked T-waves. Patient was admitted to ICU for further evaluation management of diabetic ketoacidosis On my evaluation, patient is uncomfortable in bed. He says that he does have nausea and vomiting. Denies any chest pain and shortness breath. He was placed on insulin infusion until glucose improved and he was able to tolerate oral intake. Endocrinology consulted, who titrated off drip and onto long acting insulin. Patient then transitioned back to his insulin pump, and given extra prescription for long acting insulin as needed. Deemed stable for discharge on 06/17. Medication List START taking these medications Instructions Last Dose Given Next Dose Due insulin glargine 100 unit/mL (3 mL) insulin pen Commonly known as: LANTUS SEMGLEE Inject 16 Units under the skin in the morning and 16 Units before bedtime. CHANGE how you take these medications Instructions Last Dose Given Next Dose Due venlafaxine XR 75 mg 24 hr capsule Commonly known as: EFFEXOR XR What changed: See the new instructions. Take 1 capsule by mouth in the morning CONTINUE taking these medications Instructions Last Dose Given Next Dose Due DEXCOM G6 SENSOR device Generic drug: blood-glucose sensor DEXCOM G6 TRANSMITTER device Generic drug: blood-glucose transmitter USE ONE EVERY 3 MONTHS insulin lispro 100 unit/mL injection Commonly known as: HumaLOG Up to 133 units daily via pump ondansetron ODT 4 mg disintegrating tablet Commonly known as: ZOFRAN ODT Dissolve 1 tablet (4 mg total) on tongue every 8 (eight) hours as needed for nausea for up to 10 doses. Where to Get Your Medications These medications were sent to [facility] Prisca [place] - [address], [place] [address] insulin glargine 100 unit/mL (3 mL) insulin pen Physical Exam at Discharge Discharge Condition: good Pulse: 102 Resp: 19 BP: (!) 154/99 Temp: 36.8 C (98.2 F) Weight: 88.7 kg (195 lb 8.8 oz) Physical Exam Constitutional: General: He is not in acute distress. Cardiovascular: Rate and Rhythm: Normal rate. Pulses: Normal pulses. Pulmonary: Effort: Pulmonary effort is normal. Breath sounds: Normal breath sounds. Abdominal: General: Abdomen is flat. Palpations: Abdomen is soft. Comments: Insulin injection site hyper trophy Musculoskeletal: Right lower leg: No edema. Left lower leg: No edema. Skin: Capillary Refill: Capillary refill takes less than 2 seconds. Neurological: Mental Status: He is alert and oriented to person, place, and time. Mental status is at baseline. Psychiatric: Mood and Affect: Mood normal. Behavior: Behavior normal. Thought Content: Thought content normal. Cheyanne Marley DO PGY 2 Internal Medicine AICU Associated attestation - Tayler Betancur DO - 06/17/2023 12:27 PM EST Patient seen and examined on day of discharge. Cleared for discharge per endocrinology. Patient eager to go and feels well. Dr. Tayler Betancur DO. [facility] Office: [phone] documented in this encounter [facility] 06-17-2023 Hospital Discharg e instructions Cheyanne Marley DO - 06/17/2023 11:47 AM EST Please take your medications as prescribed Please follow-up with your primary care physician in 1 week. Please follow-up with your flue dust laborer in 1-2 weeks Please call your doctor or visit the ED if you notice fever, chills, chest pain, shortness of breath, cough, abdominal pain, nausea, vomiting, and diarrhea. Rima Collins RN - 06/17/2023 12:23 PM EST As tolerated The following attachments cannot be sent through Care Everywhere.Carb counting for adults with diabetes ([place])Diabetes and diet ([place]izen [place])Diabetes Type 1 Discharge Instructions, Adult ([place]izen [place])Diabetic Ketoacidosis Discharge Instructions ([place]izen [place])Sick Day Management for Diabetics ([place]izen [place])documented in this encounter [facility] 06-17-2023 History of Presen t illness Narrative Images from the original note were not included. [facility] [place] [facility] [address] [place] [address] Service Pager: Roddy Katz MD, Interim Chief MD Barbara Meneses, QUANG Garcia PA-C Aneeba Farooqi, MD, Fellow Jaswant Weiner MD, Fellow NO NEED to PAGE for NEW CONSULTS Page for immediate attention. With this consult we assume full responsibility for diabetes care. Diabetes Management Service Progress Note Patient : Willy Presley Jr.; 38 y.o. Location: A710/01 Admit Date: 06/15/2023 Hospital Day: Hospital Day: 3 Reason for Consult: Diabetes management Blood Glucose Monitoring Results, Interpretation: : Results from last 7 days Lab Units 06/17/23 0826 06/17/23 0405 06/16/23 2117 06/16/23 1650 06/16/23 1225 06/16/23 1201 06/16/23 1103 06/16/23 1006 06/16/23 0904 06/16/23 0804 BEDSIDE GLUCOSE mg/dL 307* -- 338* 195* 174* 68 91 116* 159* 209* GLUCOSE mg/dL -- 290* -- -- -- -- -- -- -- -- Results/Impression/Conclusion: [] Basal/Bolus insulin imbalance with significant glycemic variability [] Overnight blood glucose reduction [] Fasting hypoglycemia [] Postprandial hypoglyemia: after [] breakfast [] lunch [] evening meal [] nighttime snack [] Hypoglycemia due to over-correction [x] Fasting hyperglycemia [x] Postprandial hyperglycemia: after [] breakfast [x] lunch [x] evening meal [] nighttime snack [] Hyperglycemia due to missing or improper timing of the scheduled dose of insulin/glucose-lowering medication Target glucose level in general care patients is 80-130mg/dL before meals, random glucose less than 180mg/dL. In ICU patients, target range is 140-180mg/dL in accordance with recommendations from the [place] [employer]. Blood glucoses above 200 mg/dl are [facility] monitored performance measures. ASSESSMENT and PLAN: Willy Presley Jr. has diabetes mellitus type 1 complicated by none. Admitted with DKA 1. -DKA (diabetic ketoacidosis): Resolved. S/p Insulin drip and IV fluids. Gap closed, patient has been tolerating meals 2. DM Type 1 with hyperglycemia Last HbA1c: Lab Results Component Value Date HGBA1C 9.1 (H) 06/16/2023 Results from last 7 days Lab Units 06/17/23 0405 CREATININE mg/dL 0.90 The following changes were made: Basal insulin: Glargine (or Lantus) : _16_units, [] daily AM [] daily at bedtime [x] BID (9 AM, 9 PM) Prandial or meal insulin: Lispro (or Humalog) [x] by insulin to carb ratio = _2_units: 15 grams of carbohydrate in a meal AC Correctional insulin: Lispro (or Humalog): [] 1-5 AC (above 150), 1-4 HS (above 200) [x] 2-10 AC (above 150), 2-8 HS (above 200) For while NPO or tube feeding or TPN [] 1-5 q4h (above 150) [] 2-10 q4h (above 150) - Patient can be discharged from Endocrine stand point. - He can resume his Insulin pump on discharge, reports having all the supplies and has has Insulin pens in case of emergency as well. Advised the primary team to provide a month supply as well. - Advised to avoid areas of insulin injection site hyper trophy. - Advised to use Temporary basal rate set at 50% over the next 12 hours, since he got Lantus in the morning. - He has up coming follow up with his Garbage Collector (Dr. Shaffer). Thank you for consulting our Diabetes Management Team (Endocrinology). We will continue to follow up. Chief Complaint Patient presents with High Blood Sugar - Symptomatic Nausea Vomiting History: Willy Presley Jr. is a 38 y.o. male with diabetes mellitus type 1 who was admitted with DKA. ROS/Subjective/Interval history: No acute events overnight. Has been tolerating meals. Food intake: [x] Good [] Decreased [] Poor [] NPO Symptom Yes No Comment Hypoglycemia [] [x] When: Decreased appetite [] [x] Nausea [] [x] Vomiting [] [x] Abdominal discomfort/pain [] [x] Review of Systems Constitutional: Negative for appetite change. Respiratory: Negative for chest tightness and shortness of breath. Cardiovascular: Negative for chest pain and palpitations. Gastrointestinal: Negative for abdominal pain, nausea and vomiting. Neurological: Negative for weakness. Physical Exam: BP (!) 147/121 Pulse 103 Temp 36.8 C (98.2 F) (Axillary) Resp 19 Ht 180.3 cm (5' 11 ) Wt 88.7 kg (195 lb 8.8 oz) SpO2 92% BMI 27.27 kg/m Physical Exam Constitutional: General: He is not in acute distress. Cardiovascular: Rate and Rhythm: Normal rate. Pulses: Normal pulses. Pulmonary: Effort: Pulmonary effort is normal. Breath sounds: Normal breath sounds. Abdominal: General: Abdomen is flat. Palpations: Abdomen is soft. Comments: Insulin injection site hyper trophy Musculoskeletal: Right lower leg: No edema. Left lower leg: No edema. Skin: Capillary Refill: Capillary refill takes less than 2 seconds. Neurological: Mental Status: He is alert and oriented to person, place, and time. Mental status is at baseline. Psychiatric: Mood and Affect: Mood normal. Behavior: Behavior normal. Thought Content: Thought content normal. Intake/Output: Intake/Output Summary (Last 24 hours) at 06/17/2023 1058 Last data filed at 06/16/2023 1407 Gross per 24 hour Intake 227.04 ml Output -- Net 227.04 ml Steroids / Other Glycemia-Affecting Medications: [No] Diet/Nutrition: Dietary Orders (From admission, onward) Start Ordered 06/16/23 0843 Adult diet Regular Texture; Consistent Carb 255 grams (2000 kcal) Diet effective now Question Answer Comment Diet Type: Regular Texture Carbohydrate Modifiers: Consistent Carb 255 grams (2000 kcal) 06/16/23 0842 Recent Labs: Results from last 7 days Lab Units 06/17/23 0405 06/16/23 01006/15/232042 WBC X10E9/L 9.9 16.5* 15.0* HEMOGLOBIN g/dL 11.0* 11.5* 13.6 HEMATOCRIT % 32.4* 35.1* 41.2 PLATELETS X10E9/L 187 232 277 Results from last 7 days Lab Units 06/17/23 0405 06/16/23 0402 06/16/23 0103 06/15/23 22506/15/232042 SODIUM mmol/L 136 < > 131* -- 128* POTASSIUM mmol/L 4.7 < > 4.6 < > 6.6* CHLORIDE mmol/L 103 < > 97* -- 87* CO2 mmol/L 29 < > 16* -- 17* BUN mg/dL 21 -- 37* -- 31* CREATININE mg/dL 0.90 -- 1.31* -- 1.38* CALCIUM mg/dL 8.1* -- 8.0* -- 9.2 < > = values in this interval not displayed. Results from last 7 days Lab Units 06/17/23 0405 06/16/23 010 ALBUMIN g/dL 3.2 3.6 Last HbA1c: Lab Results Component Value Date HGBA1C 9.1 (H) 06/16/2023 Jaswant Weiner PGY 5, Endocrine Fellow Associated attestation - Roddy Katz - 06/17/2023 1:02 PM EST GC: I personally saw this patient on the day of the encounter, performed the huang portion(s) of the service and participated in the management and confirm the fellow/resident s documentation. Please note there may be additional personal documentation from me. Roddy Katz MD Pharmacokinetic Consult - Vancomycin Dosing Willy Presley Jr. is a 38 y.o. male for whom pharmacy has been consulted for vancomycin dosing for sepsis . Relevant clinical data and objective history reviewed: Results from last 7 days Lab Units 06/16/23 0103 06/15/23 2043 CREATININE mg/dL 1.31* 1.38* BUN mg/dL 37* 31* WBC X10E9/L 16.5* 15.0* HEMOGLOBIN g/dL 11.5* 13.6 HEMATOCRIT % 35.1* 41.2 MCV fL 90 90 Estimated Creatinine Clearance: 83 mL/min (A) (by C-G formula based on SCr of 1.31 mg/dL (H)). No intake/output data recorded. Renal function assessment: Temp Readings from Last 3 Encounters: 06/16/23 37.2 C (98.9 F) (Axillary) 06/06/23 36.4 C (97.5 F) (Oral) 05/25/22 36.3 C (97.4 F) Baseline culture/source/susceptibility: Microbiology Results Procedure Component Value Units Date/Time SARS/FLU A+B/RSV by NAAT/Molecular (M4RT Collection Tube) [[id number]] Collected: 06/15/23 2300 Specimen: Nasopharynx Updated: 06/16/23 0043 FLU A PCR Negative FLU B PCR Negative RSV by PCR Negative SARS CoV 2 BY PCR Not Detected Assessment/Plan The patient will be started on vancomycin utilizing scheduled dosing based on actual body weight. Baseline risks associated with therapy include: concomitant nephrotoxic medications. Will initiate dose at 1250 mg IV every 12 hours, following the 1750 mg IV loading dose. Pharmacy will also follow closely for s/sx of nephrotoxicity. Serum creatinine will be ordered per policy. Obtain trough 30 minutes prior to 5th dose. Due to infection severity, will target a trough of 15-20 ug/mL. Pharmacy will continue to follow and adjust as needed based on the patient's clinical status. YOVANI PEÑA RPH [facility] Department of Pharmacy Pharmacist to Physician Communication The dose of piperacillin/tazobactam for sepsis has been changed to 4.5g IV x 1 infused over 30 minutes followed by 3.375g IV every 8 hours infused over 4 hours starting 4 hours after the loading dose per the [facility] approved renal dosing guidelines, based on an estimated creatinine clearance is 83 mL/min (A) (by C-G formula based on SCr of 1.31 mg/dL (H)). Thank you, YOVANI PEÑA RPH documented in this encounter [facility] 06-17-2023 Plan of care note Problem: Pain Goal: Patient goal is pain score less than 4, able to rest, and participant in treatment plan as appropriate Description: INTERVENTIONS: 1. Encourage patient or legal insurance claim representative to report early pain and ask for pain medicine when needed 2. Assess pain using appropriate pain scale and include the scale used when documenting 3. Administer analgesics based on type and severity of pain and evaluate response within appropriate time frame 4. Implement non-pharmacological measures as appropriate and evaluate response 5. Consider cultural and social influences on pain and pain management 6. Notify LIP if interventions ineffective or patient reports new pain 7. Monitor vital signs including pulse ox, end-tidal CO2 based on pain intervention 8. Reassess pain per policy 9. Teach patient or legal insurance claim representative interventions for comforting Outcome: Progressing Note: Evaluation of progress towards goal: Pain scale 0-10 used. Patient denies pain. PRN medication ordered, see MAR. Non-pharmacological measures provided. Vital signs monitored. Patient educated to alert staff when in pain. Will continue to monitor and reassess. Problem: Safety Goal: Patient will be injury free during hospitalization Description: INTERVENTIONS: 1. Assess patient's risk for falls and implement fall prevention plan of care per policy 2. Provide and maintain a safe environment 3. Proper use of double Identifiers 4. Medication administration using the 5 rights 5. Hand hygiene 6. Specimens are labeled at the bedside 7. Instruct patient/ patient insurance claim representative about use of safety devices 8. Include patient/ patient insurance claim representative in decisions related to safety Outcome: Progressing Note: Evaluation of progress towards goal: Patient is a fall risk. Fall precautions maintained. Environment safe from hazards. Medication 5 rights used with every medication administration. Hand hygiene performed with all patient care. Specimens labeled at bedside. Will continue to monitor. Problem: Infection Goal: Absence of infection during hospitalization Description: Interventions: 1. Assess and monitor for signs and symptoms of infection 2. Monitor lab/diagnostic results 3. Monitor all insertion sites i.e., indwelling lines, tubes and drains 4. Monitor endotracheal (as able) and nasal secretions for changes in amount and color 5. Administer medications as ordered 6. Instruct and encourage patient and family to use good hand hygiene technique 7. Identify and instruct patient/patient insurance claim representative in use of appropriate isolation precautions for identified infection/symptoms 8. Provide and discuss with patient/patient insurance claim representative on educational MDRO sheet 9. Encourage and monitor nutritional status daily and consult toe closing machine tender if indicated 10. Implement neutropenic guidelines as needed 11. Review exposure to history of communicable disease and recent travel history on admission 12. Encourage annual influenza vaccine 13. Encourage pneumonia vaccine Outcome: Progressing Note: Evaluation of progress towards goal: Continuing to assess and monitor for s/s of infection. Labs, lines, drains, vitals, & tubes monitored. Hand hygiene performed with all patient care. Standard isolation precautions maintained. Will continue to monitor and reassess. Problem: Knowledge Deficit Goal: Patient/patient insurance claim representative demonstrates understanding of disease process, treatment plan, medications, and discharge instructions Description: INTERVENTIONS 1. Complete learning assessment and assess knowledge base 2. Provide teaching at level of understanding 3. Provide teaching via preferred learning method(s) Outcome: Progressing Note: Evaluation of progress towards goal: Problem: Discharge Planning Goal: Discharge to post-acute care, other facility, or home with appropriate resources Description: Patient's goal is: INTERVENTIONS 1. Conduct assessment to determine patient/family and health care team treatment goals, and need for post-acute services based on payer coverage, community resources, and patient preferences, and barriers to discharge 2. Coordinate with Social work, Care Navigation, and Utilization Review to arrange appropriate level of services according to patient's needs based on patient preference and payer coverage in collaboration with the physician and health care team 3. Address psychosocial, clinical, and financial barriers to discharge as identified in assessment in conjunction with the patient/family and health care team 4. Consult appropriate ancillary services (i.e.. PT/OT/ST, etc) as needed 5. Communicate with and update the patient/family, physician, and health care team regarding progress on the discharge plan 6. Identify discharge learning needs (meds, wound care, etc). 7. Arrange for needed discharge transportation as appropriate Outcome: Progressing Note: Evaluation of progress towards goal: Problem: Moderate - High Risk Fall Score Description: Mcintyre Fall Score of =/> 25 or indicated by [facility] Assessment Goal: Patient should be free from fall Description: Interventions: 1. Roggen to environment 2. Hourly rounds addressing the 4 P's (Pain, Positioning, Possessions, Potty) 3. Clear area of hazards (spills, clutter, electrical cords, unnecessary equipment) 4. Place equipment (bed & TV controls, call light, phone, urinal) within reach 5. Encourage patient to wear glasses and hearing aides as appropriate 6. Maintain bed in lowest position 7. Lock wheels on bed/wheelchair 8. Provide adequate lighting, including night light 9. Assess need for additional bedding, food/fluids, pain med's prior to sleep/routinely 10. Provide gripper slippers or personal non-skid footwear 11. Teach patient and patient insurance claim representative to maintain environment for safety and engage in all aspects of fall prevention program 12. Remind patient to call for help before getting out of bed 13. Initiate bed/chair/exit alarms supportive devices as appropriate, (chair wedge, no-skid floor mat, raised edge mattress, hip protectors) 14. Locate patient bed assignment for optimal visualization 15. Evaluate and identify Safe Patient Handling Equipment needs 16. Provide supervision when out of bed or chair 17. Utilize gait belt as needed to assist with ambulation 18. Place adaptive equipment (cane, walker) within reach 19. Request patient insurance claim representative bring adaptive equipment/mobility aids from home or obtain and provide as needed 20. Consult pharmacy regarding effects of med's affecting mobility, cognition, and alternatives 21. Obtain physician order for PT if risk factors associated with mobility are present 22. Obtain physician order for OT as appropriate 23. Utilize diversional activities 24. Educate patient and patient insurance claim representative how to maintain a safe environment during visitation times (notify nurse prior to leaving bedside) 25. Consider appropriateness of medical or non-medical staff coordinator 26. Set up voiding schedule as appropriate (every 2 hours) Outcome: Progressing Note: Evaluation of progress towards goal: Fall precautions maintained. Area clear from hazards. Bed locked and in the lowest position. Call light and personal items in reach. Patient educated to call out for assistance before attempting to get out of bed. Hourly rounding. Will continue to monitor and reassess. [facility] Algram[place] 06-17-2023 Miscellaneous Notes Problem: Pain Goal: Patient goal is pain score less than 4, able to rest, and participant in treatment plan as appropriate Description: INTERVENTIONS: 1. Encourage patient or legal insurance claim representative to report early pain and ask for pain medicine when needed 2. Assess pain using appropriate pain scale and include the scale used when documenting 3. Administer analgesics based on type and severity of pain and evaluate response within appropriate time frame 4. Implement non-pharmacological measures as appropriate and evaluate response 5. Consider cultural and social influences on pain and pain management 6. Notify LIP if interventions ineffective or patient reports new pain 7. Monitor vital signs including pulse ox, end-tidal CO2 based on pain intervention 8. Reassess pain per policy 9. Teach patient or legal insurance claim representative interventions for comforting Outcome: Progressing Note: Evaluation of progress towards goal: Pain scale 0-10 used. Patient denies pain. PRN medication ordered, see MAR. Non-pharmacological measures provided. Vital signs monitored. Patient educated to alert staff when in pain. Will continue to monitor and reassess. Problem: Safety Goal: Patient will be injury free during hospitalization Description: INTERVENTIONS: 1. Assess patient's risk for falls and implement fall prevention plan of care per policy 2. Provide and maintain a safe environment 3. Proper use of double Identifiers 4. Medication administration using the 5 rights 5. Hand hygiene 6. Specimens are labeled at the bedside 7. Instruct patient/ patient insurance claim representative about use of safety devices 8. Include patient/ patient insurance claim representative in decisions related to safety Outcome: Progressing Note: Evaluation of progress towards goal: Patient is a fall risk. Fall precautions maintained. Environment safe from hazards. Medication 5 rights used with every medication administration. Hand hygiene performed with all patient care. Specimens labeled at bedside. Will continue to monitor. Problem: Infection Goal: Absence of infection during hospitalization Description: Interventions: 1. Assess and monitor for signs and symptoms of infection 2. Monitor lab/diagnostic results 3. Monitor all insertion sites i.e., indwelling lines, tubes and drains 4. Monitor endotracheal (as able) and nasal secretions for changes in amount and color 5. Administer medications as ordered 6. Instruct and encourage patient and family to use good hand hygiene technique 7. Identify and instruct patient/patient insurance claim representative in use of appropriate isolation precautions for identified infection/symptoms 8. Provide and discuss with patient/patient insurance claim representative on educational MDRO sheet 9. Encourage and monitor nutritional status daily and consult toe closing machine tender if indicated 10. Implement neutropenic guidelines as needed 11. Review exposure to history of communicable disease and recent travel history on admission 12. Encourage annual influenza vaccine 13. Encourage pneumonia vaccine Outcome: Progressing Note: Evaluation of progress towards goal: Continuing to assess and monitor for s/s of infection. Labs, lines, drains, vitals, & tubes monitored. Hand hygiene performed with all patient care. Standard isolation precautions maintained. Will continue to monitor and reassess. Problem: Knowledge Deficit Goal: Patient/patient insurance claim representative demonstrates understanding of disease process, treatment plan, medications, and discharge instructions Description: INTERVENTIONS 1. Complete learning assessment and assess knowledge base 2. Provide teaching at level of understanding 3. Provide teaching via preferred learning method(s) Outcome: Progressing Note: Evaluation of progress towards goal: Problem: Discharge Planning Goal: Discharge to post-acute care, other facility, or home with appropriate resources Description: Patient's goal is: INTERVENTIONS 1. Conduct assessment to determine patient/family and health care team treatment goals, and need for post-acute services based on payer coverage, community resources, and patient preferences, and barriers to discharge 2. Coordinate with Social work, Care Navigation, and Utilization Review to arrange appropriate level of services according to patient's needs based on patient preference and payer coverage in collaboration with the physician and health care team 3. Address psychosocial, clinical, and financial barriers to discharge as identified in assessment in conjunction with the patient/family and health care team 4. Consult appropriate ancillary services (i.e.. PT/OT/ST, etc) as needed 5. Communicate with and update the patient/family, physician, and health care team regarding progress on the discharge plan 6. Identify discharge learning needs (meds, wound care, etc). 7. Arrange for needed discharge transportation as appropriate Outcome: Progressing Note: Evaluation of progress towards goal: Problem: Moderate - High Risk Fall Score Description: Mcintyre Fall Score of =/> 25 or indicated by [facility] Assessment Goal: Patient should be free from fall Description: Interventions: 1. Roggen to environment 2. Hourly rounds addressing the 4 P's (Pain, Positioning, Possessions, Potty) 3. Clear area of hazards (spills, clutter, electrical cords, unnecessary equipment) 4. Place equipment (bed & TV controls, call light, phone, urinal) within reach 5. Encourage patient to wear glasses and hearing aides as appropriate 6. Maintain bed in lowest position 7. Lock wheels on bed/wheelchair 8. Provide adequate lighting, including night light 9. Assess need for additional bedding, food/fluids, pain med's prior to sleep/routinely 10. Provide gripper slippers or personal non-skid footwear 11. Teach patient and patient insurance claim representative to maintain environment for safety and engage in all aspects of fall prevention program 12. Remind patient to call for help before getting out of bed 13. Initiate bed/chair/exit alarms supportive devices as appropriate, (chair wedge, no-skid floor mat, raised edge mattress, hip protectors) 14. Locate patient bed assignment for optimal visualization 15. Evaluate and identify Safe Patient Handling Equipment needs 16. Provide supervision when out of bed or chair 17. Utilize gait belt as needed to assist with ambulation 18. Place adaptive equipment (cane, walker) within reach 19. Request patient insurance claim representative bring adaptive equipment/mobility aids from home or obtain and provide as needed 20. Consult pharmacy regarding effects of med's affecting mobility, cognition, and alternatives 21. Obtain physician order for PT if risk factors associated with mobility are present 22. Obtain physician order for OT as appropriate 23. Utilize diversional activities 24. Educate patient and patient insurance claim representative how to maintain a safe environment during visitation times (notify nurse prior to leaving bedside) 25. Consider appropriateness of medical or non-medical staff coordinator 26. Set up voiding schedule as appropriate (every 2 hours) Outcome: Progressing Note: Evaluation of progress towards goal: Fall precautions maintained. Area clear from hazards. Bed locked and in the lowest position. Call light and personal items in reach. Patient educated to call out for assistance before attempting to get out of bed. Hourly rounding. Will continue to monitor and reassess. Problem: Pain Goal: Patient goal is pain score less than 4, able to rest, and participant in treatment plan as appropriate Description: INTERVENTIONS: 1. Encourage patient or legal insurance claim representative to report early pain and ask for pain medicine when needed 2. Assess pain using appropriate pain scale and include the scale used when documenting 3. Administer analgesics based on type and severity of pain and evaluate response within appropriate time frame 4. Implement non-pharmacological measures as appropriate and evaluate response 5. Consider cultural and social influences on pain and pain management 6. Notify LIP if interventions ineffective or patient reports new pain 7. Monitor vital signs including pulse ox, end-tidal CO2 based on pain intervention 8. Reassess pain per policy 9. Teach patient or legal insurance claim representative interventions for comforting Outcome: Progressing Note: Evaluation of progress towards goal: Pt displays no S&S of being in pain at this time. VSS. PRN pain medication given per patient request and as needed based on pain assessment. Will continue to monitor and assess. Problem: Safety Goal: Patient will be injury free during hospitalization Description: INTERVENTIONS: 1. Assess patient's risk for falls and implement fall prevention plan of care per policy 2. Provide and maintain a safe environment 3. Proper use of double Identifiers 4. Medication administration using the 5 rights 5. Hand hygiene 6. Specimens are labeled at the bedside 7. Instruct patient/ patient insurance claim representative about use of safety devices 8. Include patient/ patient insurance claim representative in decisions related to safety Outcome: Progressing Note: Evaluation of progress towards goal: No new falls or injuries noted. Safe environment maintained. Hourly rounding performed. Fall risk identification band in place. Will continue to monitor and assess. Problem: Infection Goal: Absence of infection during hospitalization Description: Interventions: 1. Assess and monitor for signs and symptoms of infection 2. Monitor lab/diagnostic results 3. Monitor all insertion sites i.e., indwelling lines, tubes and drains 4. Monitor endotracheal (as able) and nasal secretions for changes in amount and color 5. Administer medications as ordered 6. Instruct and encourage patient and family to use good hand hygiene technique 7. Identify and instruct patient/patient insurance claim representative in use of appropriate isolation precautions for identified infection/symptoms 8. Provide and discuss with patient/patient insurance claim representative on educational MDRO sheet 9. Encourage and monitor nutritional status daily and consult toe closing machine tender if indicated 10. Implement neutropenic guidelines as needed 11. Review exposure to history of communicable disease and recent travel history on admission 12. Encourage annual influenza vaccine 13. Encourage pneumonia vaccine Outcome: Progressing Note: Evaluation of progress towards goal: VSS. WBC noted. Lab results monitored. Antibiotics given as ordered. Will continue to monitor and assess. Problem: Knowledge Deficit Goal: Patient/patient insurance claim representative demonstrates understanding of disease process, treatment plan, medications, and discharge instructions Description: INTERVENTIONS 1. Complete learning assessment and assess knowledge base 2. Provide teaching at level of understanding 3. Provide teaching via preferred learning method(s) Outcome: Progressing Note: Evaluation of progress towards goal: Pt and family demonstrate understanding of disease process, treatment plan, medications and changes to regiment, and dishcharge preparations. Family updated and allowed time to ask questions to ensure understanding. Problem: Discharge Planning Goal: Discharge to post-acute care, other facility, or home with appropriate resources Description: Patient's goal is: INTERVENTIONS 1. Conduct assessment to determine patient/family and health care team treatment goals, and need for post-acute services based on payer coverage, community resources, and patient preferences, and barriers to discharge 2. Coordinate with Social work, Care Navigation, and Utilization Review to arrange appropriate level of services according to patient's needs based on patient preference and payer coverage in collaboration with the physician and health care team 3. Address psychosocial, clinical, and financial barriers to discharge as identified in assessment in conjunction with the patient/family and health care team 4. Consult appropriate ancillary services (i.e.. PT/OT/ST, etc) as needed 5. Communicate with and update the patient/family, physician, and health care team regarding progress on the discharge plan 6. Identify discharge learning needs (meds, wound care, etc). 7. Arrange for needed discharge transportation as appropriate Outcome: Progressing Note: Evaluation of progress towards goal: Pt progressing towards goals set by pt and care team. Post hospital stay plans and arrangements are being kept in mind during care. Home and appropriate recourses will be provided when ready for discharge and throughout stay. Problem: Glucose Imbalance Goal: Clinical indication of glucose balance is achieved Description: Patient's goal is: INTERVENTIONS 1. Monitor blood glucose levels as ordered 2. Administer medications as ordered 3. Notify physician of ineffective treatment plan Outcome: Progressing Note: Evaluation of progress towards goal: Pt BS checked q4. Insulin adm as needed per sliding scale. Pt will be monitored closely for hypo/hyper glycemia and the s/s associated with each. Goal: Patient's discharge needs are met Description: Patient's goal is: INTERVENTIONS 1. Assess patient for self-management skills 2. Encourage participation in diabetes management 3. Identify potential discharge barriers on admission and throughout hospital stay 4. Involve patient/S.O. in discharge planning process 5. Communicate referral to hardboard panel printer as appropriate 6. Communicate referral to toe closing machine tender as appropriate 7. Collaborate with case management/geriatric social worker for discharge needs Outcome: Progressing Note: Evaluation of progress towards goal: Pt progressing towards goals set by pt and care team. Post hospital stay plans and arrangements are being kept in mind during care. Home and appropriate recourses will be provided when ready for discharge and throughout stay. Problem: Moderate - High Risk Fall Score Description: [place] Fall Score of =/> 25 or indicated by [facility] Assessment Goal: Patient should be free from fall Description: Interventions: 1. [place] to environment 2. Hourly rounds addressing the 4 P's (Pain, Positioning, Possessions, Potty) 3. Clear area of hazards (spills, clutter, electrical cords, unnecessary equipment) 4. Place equipment (bed & TV controls, call light, phone, urinal) within reach 5. Encourage patient to wear glasses and hearing aides as appropriate 6. Maintain bed in lowest position 7. Lock wheels on bed/wheelchair 8. Provide adequate lighting, including night light 9. Assess need for additional bedding, food/fluids, pain med's prior to sleep/routinely 10. Provide gripper slippers or personal non-skid footwear 11. Teach patient and patient insurance claim representative to maintain environment for safety and engage in all aspects of fall prevention program 12. Remind patient to call for help before getting out of bed 13. Initiate bed/chair/exit alarms supportive devices as appropriate, (chair wedge, no-skid floor mat, raised edge mattress, hip protectors) 14. Locate patient bed assignment for optimal visualization 15. Evaluate and identify Safe Patient Handling Equipment needs 16. Provide supervision when out of bed or chair 17. Utilize gait belt as needed to assist with ambulation 18. Place adaptive equipment (cane, walker) within reach 19. Request patient insurance claim representative bring adaptive equipment/mobility aids from home or obtain and provide as needed 20. Consult pharmacy regarding effects of med's affecting mobility, cognition, and alternatives 21. Obtain physician order for PT if risk factors associated with mobility are present 22. Obtain physician order for OT as appropriate 23. Utilize diversional activities 24. Educate patient and patient insurance claim representative how to maintain a safe environment during visitation times (notify nurse prior to leaving bedside) 25. Consider appropriateness of medical or non-medical staff coordinator 26. Set up voiding schedule as appropriate (every 2 hours) Outcome: Progressing Note: Evaluation of progress towards goal: No new falls or injuries noted. Safe environment maintained. Hourly rounding performed. Fall risk identification band in place. Will continue to monitor and assess. Problem: Metabolic/Fluid and Electrolytes - Adult Goal: Electrolytes maintained within normal limits Description: INTERVENTIONS 1. Monitor for signs and symptoms of hypovolemia (tachycardia, rapid breathing, decreased urine output, postural hypotension, sunken fontanel) 2. Monitor for signs and symptoms of hypervolemia (strong rapid pulse, rapid breathing, crackles heard in lung naidu, edema, decreased urine output, sudden weight gain, distended neck veins in older children, enlarged liver and spleen) 1. Monitor intake and output 2. Monitor pt's weight 1. Monitor labs and assess patient for signs and symptoms of electrolyte imbalances 2. Administer electrolyte replacement as ordered 3. Monitor response to electrolyte replacements, including repeat lab results as appropriate 4. Fluid restriction or hydration as ordered 5. Instruct patient/ legal insurance claim representative on nutrition/diet; fluid/hydration restrictions as appropriate Outcome: Progressing Note: Evaluation of progress towards goal: Electrolytes and labs checked. Electrolyte replacement as needed, labs rechecked throughout the day. Adequate nutrition and metabolic state assessed. Will continue to monitor. Goal: Glucose maintained within prescribed range Description: Patient's goal is: INTERVENTIONS 1. Monitor Blood Glucose as ordered 2. Assess for signs and symptoms of hyperglycemia and hypoglycemia 3. Administer ordered medications to maintain glucose within target range 4. Assess barriers to adequate nutritional intake and initiate nutrition consult as needed 5. Instruct patient/ legal insurance claim representative on self management of diabetes and initiate consult as needed Outcome: Progressing Note: Evaluation of progress towards goal: Pt BS checked q4. Insulin adm as needed per sliding scale. Pt will be monitored closely for hypo/hyper glycemia and the s/s associated with each. Problem: Pain Goal: Patient goal is pain score less than 4, able to rest, and participant in treatment plan as appropriate Description: INTERVENTIONS: 1. Encourage patient or legal insurance claim representative to report early pain and ask for pain medicine when needed 2. Assess pain using appropriate pain scale and include the scale used when documenting 3. Administer analgesics based on type and severity of pain and evaluate response within appropriate time frame 4. Implement non-pharmacological measures as appropriate and evaluate response 5. Consider cultural and social influences on pain and pain management 6. Notify LIP if interventions ineffective or patient reports new pain 7. Monitor vital signs including pulse ox, end-tidal CO2 based on pain intervention 8. Reassess pain per policy 9. Teach patient or legal insurance claim representative interventions for comforting Outcome: Progressing Note: Evaluation of progress towards goal: Pain scale 0-10 used. Patient denies pain. PRN medication ordered, see MAR. Non-pharmacological measures provided. Vital signs monitored. Patient educated to alert staff when in pain. Will continue to monitor and reassess. Problem: Safety Goal: Patient will be injury free during hospitalization Description: INTERVENTIONS: 1. Assess patient's risk for falls and implement fall prevention plan of care per policy 2. Provide and maintain a safe environment 3. Proper use of double Identifiers 4. Medication administration using the 5 rights 5. Hand hygiene 6. Specimens are labeled at the bedside 7. Instruct patient/ patient insurance claim representative about use of safety devices 8. Include patient/ patient insurance claim representative in decisions related to safety Outcome: Progressing Note: Evaluation of progress towards goal: Patient is a fall risk. Fall precautions maintained. Environment safe from hazards. Medication 5 rights used with every medication administration. Hand hygiene performed with all patient care. Specimens labeled at bedside. Will continue to monitor. Problem: Infection Goal: Absence of infection during hospitalization Description: Interventions: 1. Assess and monitor for signs and symptoms of infection 2. Monitor lab/diagnostic results 3. Monitor all insertion sites i.e., indwelling lines, tubes and drains 4. Monitor endotracheal (as able) and nasal secretions for changes in amount and color 5. Administer medications as ordered 6. Instruct and encourage patient and family to use good hand hygiene technique 7. Identify and instruct patient/patient insurance claim representative in use of appropriate isolation precautions for identified infection/symptoms 8. Provide and discuss with patient/patient insurance claim representative on educational MDRO sheet 9. Encourage and monitor nutritional status daily and consult toe closing machine tender if indicated 10. Implement neutropenic guidelines as needed 11. Review exposure to history of communicable disease and recent travel history on admission 12. Encourage annual influenza vaccine 13. Encourage pneumonia vaccine Outcome: Progressing Note: Evaluation of progress towards goal: Continuing to assess and monitor for s/s of infection. Labs, lines, drains, vitals, & tubes monitored. Hand hygiene performed with all patient care. Standard isolation precautions maintained. Will continue to monitor and reassess. Problem: Knowledge Deficit Goal: Patient/patient insurance claim representative demonstrates understanding of disease process, treatment plan, medications, and discharge instructions Description: INTERVENTIONS 1. Complete learning assessment and assess knowledge base 2. Provide teaching at level of understanding 3. Provide teaching via preferred learning method(s) Outcome: Progressing Note: Evaluation of progress towards goal: Problem: Discharge Planning Goal: Discharge to post-acute care, other facility, or home with appropriate resources Description: Patient's goal is: INTERVENTIONS 1. Conduct assessment to determine patient/family and health care team treatment goals, and need for post-acute services based on payer coverage, community resources, and patient preferences, and barriers to discharge 2. Coordinate with Social work, Care Navigation, and Utilization Review to arrange appropriate level of services according to patient's needs based on patient preference and payer coverage in collaboration with the physician and health care team 3. Address psychosocial, clinical, and financial barriers to discharge as identified in assessment in conjunction with the patient/family and health care team 4. Consult appropriate ancillary services (i.e.. PT/OT/ST, etc) as needed 5. Communicate with and update the patient/family, physician, and health care team regarding progress on the discharge plan 6. Identify discharge learning needs (meds, wound care, etc). 7. Arrange for needed discharge transportation as appropriate Outcome: Progressing Note: Evaluation of progress towards goal: Problem: Moderate - High Risk Fall Score Description: [place] Fall Score of =/> 25 or indicated by [facility] Assessment Goal: Patient should be free from fall Description: Interventions: 1. [place] to environment 2. Hourly rounds addressing the 4 P's (Pain, Positioning, Possessions, Potty) 3. Clear area of hazards (spills, clutter, electrical cords, unnecessary equipment) 4. Place equipment (bed & TV controls, call light, phone, urinal) within reach 5. Encourage patient to wear glasses and hearing aides as appropriate 6. Maintain bed in lowest position 7. Lock wheels on bed/wheelchair 8. Provide adequate lighting, including night light 9. Assess need for additional bedding, food/fluids, pain med's prior to sleep/routinely 10. Provide gripper slippers or personal non-skid footwear 11. Teach patient and patient insurance claim representative to maintain environment for safety and engage in all aspects of fall prevention program 12. Remind patient to call for help before getting out of bed 13. Initiate bed/chair/exit alarms supportive devices as appropriate, (chair wedge, no-skid floor mat, raised edge mattress, hip protectors) 14. Locate patient bed assignment for optimal visualization 15. Evaluate and identify Safe Patient Handling Equipment needs 16. Provide supervision when out of bed or chair 17. Utilize gait belt as needed to assist with ambulation 18. Place adaptive equipment (cane, walker) within reach 19. Request patient insurance claim representative bring adaptive equipment/mobility aids from home or obtain and provide as needed 20. Consult pharmacy regarding effects of med's affecting mobility, cognition, and alternatives 21. Obtain physician order for PT if risk factors associated with mobility are present 22. Obtain physician order for OT as appropriate 23. Utilize diversional activities 24. Educate patient and patient insurance claim representative how to maintain a safe environment during visitation times (notify nurse prior to leaving bedside) 25. Consider appropriateness of medical or non-medical staff coordinator 26. Set up voiding schedule as appropriate (every 2 hours) Outcome: Progressing Note: Evaluation of progress towards goal: Fall precautions maintained. Area clear from hazards. Bed locked and in the lowest position. Call light and personal items in reach. Patient educated to call out for assistance before attempting to get out of bed. Hourly rounding. Will continue to monitor and reassess. Problem: Pain Goal: Patient goal is pain score less than 4, able to rest, and participant in treatment plan as appropriate Description: INTERVENTIONS: 1. Encourage patient or legal insurance claim representative to report early pain and ask for pain medicine when needed 2. Assess pain using appropriate pain scale and include the scale used when documenting 3. Administer analgesics based on type and severity of pain and evaluate response within appropriate time frame 4. Implement non-pharmacological measures as appropriate and evaluate response 5. Consider cultural and social influences on pain and pain management 6. Notify LIP if interventions ineffective or patient reports new pain 7. Monitor vital signs including pulse ox, end-tidal CO2 based on pain intervention 8. Reassess pain per policy 9. Teach patient or legal insurance claim representative interventions for comforting Outcome: Progressing Note: Evaluation of progress towards goal: pt denies pain at this time Problem: Safety Goal: Patient will be injury free during hospitalization Description: INTERVENTIONS: 1. Assess patient's risk for falls and implement fall prevention plan of care per policy 2. Provide and maintain a safe environment 3. Proper use of double Identifiers 4. Medication administration using the 5 rights 5. Hand hygiene 6. Specimens are labeled at the bedside 7. Instruct patient/ patient insurance claim representative about use of safety devices 8. Include patient/ patient insurance claim representative in decisions related to safety Outcome: Progressing Note: Evaluation of progress towards goal: free from injury r/t hospital stay at this time Problem: Infection Goal: Absence of infection during hospitalization Description: Interventions: 1. Assess and monitor for signs and symptoms of infection 2. Monitor lab/diagnostic results 3. Monitor all insertion sites i.e., indwelling lines, tubes and drains 4. Monitor endotracheal (as able) and nasal secretions for changes in amount and color 5. Administer medications as ordered 6. Instruct and encourage patient and family to use good hand hygiene technique 7. Identify and instruct patient/patient insurance claim representative in use of appropriate isolation precautions for identified infection/symptoms 8. Provide and discuss with patient/patient insurance claim representative on educational MDRO sheet 9. Encourage and monitor nutritional status daily and consult toe closing machine tender if indicated 10. Implement neutropenic guidelines as needed 11. Review exposure to history of communicable disease and recent travel history on admission 12. Encourage annual influenza vaccine 13. Encourage pneumonia vaccine Outcome: Progressing Note: Evaluation of progress towards goal: WBC noted and being monitored. Problem: Knowledge Deficit Goal: Patient/patient insurance claim representative demonstrates understanding of disease process, treatment plan, medications, and discharge instructions Description: INTERVENTIONS 1. Complete learning assessment and assess knowledge base 2. Provide teaching at level of understanding 3. Provide teaching via preferred learning method(s) Outcome: Progressing Note: Evaluation of progress towards goal: pt states understanding of POC at this time Problem: Discharge Planning Goal: Discharge to post-acute care, other facility, or home with appropriate resources Description: Patient's goal is: INTERVENTIONS 1. Conduct assessment to determine patient/family and health care team treatment goals, and need for post-acute services based on payer coverage, community resources, and patient preferences, and barriers to discharge 2. Coordinate with Social work, Care Navigation, and Utilization Review to arrange appropriate level of services according to patient's needs based on patient preference and payer coverage in collaboration with the physician and health care team 3. Address psychosocial, clinical, and financial barriers to discharge as identified in assessment in conjunction with the patient/family and health care team 4. Consult appropriate ancillary services (i.e.. PT/OT/ST, etc) as needed 5. Communicate with and update the patient/family, physician, and health care team regarding progress on the discharge plan 6. Identify discharge learning needs (meds, wound care, etc). 7. Arrange for needed discharge transportation as appropriate Outcome: Progressing Note: Evaluation of progress towards goal: from home prior to admission Problem: Glucose Imbalance Goal: Clinical indication of glucose balance is achieved Description: Patient's goal is: INTERVENTIONS 1. Monitor blood glucose levels as ordered 2. Administer medications as ordered 3. Notify physician of ineffective treatment plan Outcome: Progressing Note: Evaluation of progress towards goal: being monitored per order Goal: Patient's discharge needs are met Description: Patient's goal is: INTERVENTIONS 1. Assess patient for self-management skills 2. Encourage participation in diabetes management 3. Identify potential discharge barriers on admission and throughout hospital stay 4. Involve patient/S.O. in discharge planning process 5. Communicate referral to hardboard panel printer as appropriate 6. Communicate referral to toe closing machine tender as appropriate 7. Collaborate with case management/geriatric social worker for discharge needs Outcome: Progressing Note: Evaluation of progress towards goal: new admit Problem: Moderate - High Risk Fall Score Description: [place] Fall Score of =/> 25 or indicated by [facility] Assessment Goal: Patient should be free from fall Description: Interventions: 1. [place] to environment 2. Hourly rounds addressing the 4 P's (Pain, Positioning, Possessions, Potty) 3. Clear area of hazards (spills, clutter, electrical cords, unnecessary equipment) 4. Place equipment (bed & TV controls, call light, phone, urinal) within reach 5. Encourage patient to wear glasses and hearing aides as appropriate 6. Maintain bed in lowest position 7. Lock wheels on bed/wheelchair 8. Provide adequate lighting, including night light 9. Assess need for additional bedding, food/fluids, pain med's prior to sleep/routinely 10. Provide gripper slippers or personal non-skid footwear 11. Teach patient and patient insurance claim representative to maintain environment for safety and engage in all aspects of fall prevention program 12. Remind patient to call for help before getting out of bed 13. Initiate bed/chair/exit alarms supportive devices as appropriate, (chair wedge, no-skid floor mat, raised edge mattress, hip protectors) 14. Locate patient bed assignment for optimal visualization 15. Evaluate and identify Safe Patient Handling Equipment needs 16. Provide supervision when out of bed or chair 17. Utilize gait belt as needed to assist with ambulation 18. Place adaptive equipment (cane, walker) within reach 19. Request patient insurance claim representative bring adaptive equipment/mobility aids from home or obtain and provide as needed 20. Consult pharmacy regarding effects of med's affecting mobility, cognition, and alternatives 21. Obtain physician order for PT if risk factors associated with mobility are present 22. Obtain physician order for OT as appropriate 23. Utilize diversional activities 24. Educate patient and patient insurance claim representative how to maintain a safe environment during visitation times (notify nurse prior to leaving bedside) 25. Consider appropriateness of medical or non-medical staff coordinator 26. Set up voiding schedule as appropriate (every 2 hours) Outcome: Progressing Note: Evaluation of progress towards goal: free from falls Problem: Metabolic/Fluid and Electrolytes - Adult Goal: Electrolytes maintained within normal limits Description: INTERVENTIONS 1. Monitor for signs and symptoms of hypovolemia (tachycardia, rapid breathing, decreased urine output, postural hypotension, sunken fontanel) 2. Monitor for signs and symptoms of hypervolemia (strong rapid pulse, rapid breathing, crackles heard in lung naidu, edema, decreased urine output, sudden weight gain, distended neck veins in older children, enlarged liver and spleen) 1. Monitor intake and output 2. Monitor pt's weight 1. Monitor labs and assess patient for signs and symptoms of electrolyte imbalances 2. Administer electrolyte replacement as ordered 3. Monitor response to electrolyte replacements, including repeat lab results as appropriate 4. Fluid restriction or hydration as ordered 5. Instruct patient/ legal insurance claim representative on nutrition/diet; fluid/hydration restrictions as appropriate Outcome: Progressing Note: Evaluation of progress towards goal: being monitored per DKA protocol Goal: Glucose maintained within prescribed range Description: Patient's goal is: INTERVENTIONS 1. Monitor Blood Glucose as ordered 2. Assess for signs and symptoms of hyperglycemia and hypoglycemia 3. Administer ordered medications to maintain glucose within target range 4. Assess barriers to adequate nutritional intake and initiate nutrition consult as needed 5. Instruct patient/ legal insurance claim representative on self management of diabetes and initiate consult as needed Outcome: Progressing Note: Evaluation of progress towards goal: being monitored hourly per order documented in this encounter Algramo 06-16-2023 Plan of care note Problem: Pain Goal: Patient goal is pain score less than 4, able to rest, and participant in treatment plan as appropriate Description: INTERVENTIONS: 1. Encourage patient or legal insurance claim representative to report early pain and ask for pain medicine when needed 2. Assess pain using appropriate pain scale and include the scale used when documenting 3. Administer analgesics based on type and severity of pain and evaluate response within appropriate time frame 4. Implement non-pharmacological measures as appropriate and evaluate response 5. Consider cultural and social influences on pain and pain management 6. Notify LIP if interventions ineffective or patient reports new pain 7. Monitor vital signs including pulse ox, end-tidal CO2 based on pain intervention 8. Reassess pain per policy 9. Teach patient or legal insurance claim representative interventions for comforting Outcome: Progressing Note: Evaluation of progress towards goal: Pt displays no S&S of being in pain at this time. VSS. PRN pain medication given per patient request and as needed based on pain assessment. Will continue to monitor and assess. Problem: Safety Goal: Patient will be injury free during hospitalization Description: INTERVENTIONS: 1. Assess patient's risk for falls and implement fall prevention plan of care per policy 2. Provide and maintain a safe environment 3. Proper use of double Identifiers 4. Medication administration using the 5 rights 5. Hand hygiene 6. Specimens are labeled at the bedside 7. Instruct patient/ patient insurance claim representative about use of safety devices 8. Include patient/ patient insurance claim representative in decisions related to safety Outcome: Progressing Note: Evaluation of progress towards goal: No new falls or injuries noted. Safe environment maintained. Hourly rounding performed. Fall risk identification band in place. Will continue to monitor and assess. Problem: Infection Goal: Absence of infection during hospitalization Description: Interventions: 1. Assess and monitor for signs and symptoms of infection 2. Monitor lab/diagnostic results 3. Monitor all insertion sites i.e., indwelling lines, tubes and drains 4. Monitor endotracheal (as able) and nasal secretions for changes in amount and color 5. Administer medications as ordered 6. Instruct and encourage patient and family to use good hand hygiene technique 7. Identify and instruct patient/patient insurance claim representative in use of appropriate isolation precautions for identified infection/symptoms 8. Provide and discuss with patient/patient insurance claim representative on educational MDRO sheet 9. Encourage and monitor nutritional status daily and consult toe closing machine tender if indicated 10. Implement neutropenic guidelines as needed 11. Review exposure to history of communicable disease and recent travel history on admission 12. Encourage annual influenza vaccine 13. Encourage pneumonia vaccine Outcome: Progressing Note: Evaluation of progress towards goal: VSS. WBC noted. Lab results monitored. Antibiotics given as ordered. Will continue to monitor and assess. Problem: Knowledge Deficit Goal: Patient/patient insurance claim representative demonstrates understanding of disease process, treatment plan, medications, and discharge instructions Description: INTERVENTIONS 1. Complete learning assessment and assess knowledge base 2. Provide teaching at level of understanding 3. Provide teaching via preferred learning method(s) Outcome: Progressing Note: Evaluation of progress towards goal: Pt and family demonstrate understanding of disease process, treatment plan, medications and changes to regiment, and dishcharge preparations. Family updated and allowed time to ask questions to ensure understanding. Problem: Discharge Planning Goal: Discharge to post-acute care, other facility, or home with appropriate resources Description: Patient's goal is: INTERVENTIONS 1. Conduct assessment to determine patient/family and health care team treatment goals, and need for post-acute services based on payer coverage, community resources, and patient preferences, and barriers to discharge 2. Coordinate with Social work, Care Navigation, and Utilization Review to arrange appropriate level of services according to patient's needs based on patient preference and payer coverage in collaboration with the physician and health care team 3. Address psychosocial, clinical, and financial barriers to discharge as identified in assessment in conjunction with the patient/family and health care team 4. Consult appropriate ancillary services (i.e.. PT/OT/ST, etc) as needed 5. Communicate with and update the patient/family, physician, and health care team regarding progress on the discharge plan 6. Identify discharge learning needs (meds, wound care, etc). 7. Arrange for needed discharge transportation as appropriate Outcome: Progressing Note: Evaluation of progress towards goal: Pt progressing towards goals set by pt and care team. Post hospital stay plans and arrangements are being kept in mind during care. Home and appropriate recourses will be provided when ready for discharge and throughout stay. Problem: Glucose Imbalance Goal: Clinical indication of glucose balance is achieved Description: Patient's goal is: INTERVENTIONS 1. Monitor blood glucose levels as ordered 2. Administer medications as ordered 3. Notify physician of ineffective treatment plan Outcome: Progressing Note: Evaluation of progress towards goal: Pt BS checked q4. Insulin adm as needed per sliding scale. Pt will be monitored closely for hypo/hyper glycemia and the s/s associated with each. Goal: Patient's discharge needs are met Description: Patient's goal is: INTERVENTIONS 1. Assess patient for self-management skills 2. Encourage participation in diabetes management 3. Identify potential discharge barriers on admission and throughout hospital stay 4. Involve patient/S.O. in discharge planning process 5. Communicate referral to hardboard panel printer as appropriate 6. Communicate referral to toe closing machine tender as appropriate 7. Collaborate with case management/geriatric social worker for discharge needs Outcome: Progressing Note: Evaluation of progress towards goal: Pt progressing towards goals set by pt and care team. Post hospital stay plans and arrangements are being kept in mind during care. Home and appropriate recourses will be provided when ready for discharge and throughout stay. Problem: Moderate - High Risk Fall Score Description: Mcintyre Fall Score of =/> 25 or indicated by [facility] Assessment Goal: Patient should be free from fall Description: Interventions: 1. Roggen to environment 2. Hourly rounds addressing the 4 P's (Pain, Positioning, Possessions, Potty) 3. Clear area of hazards (spills, clutter, electrical cords, unnecessary equipment) 4. Place equipment (bed & TV controls, call light, phone, urinal) within reach 5. Encourage patient to wear glasses and hearing aides as appropriate 6. Maintain bed in lowest position 7. Lock wheels on bed/wheelchair 8. Provide adequate lighting, including night light 9. Assess need for additional bedding, food/fluids, pain med's prior to sleep/routinely 10. Provide gripper slippers or personal non-skid footwear 11. Teach patient and patient insurance claim representative to maintain environment for safety and engage in all aspects of fall prevention program 12. Remind patient to call for help before getting out of bed 13. Initiate bed/chair/exit alarms supportive devices as appropriate, (chair wedge, no-skid floor mat, raised edge mattress, hip protectors) 14. Locate patient bed assignment for optimal visualization 15. Evaluate and identify Safe Patient Handling Equipment needs 16. Provide supervision when out of bed or chair 17. Utilize gait belt as needed to assist with ambulation 18. Place adaptive equipment (cane, walker) within reach 19. Request patient insurance claim representative bring adaptive equipment/mobility aids from home or obtain and provide as needed 20. Consult pharmacy regarding effects of med's affecting mobility, cognition, and alternatives 21. Obtain physician order for PT if risk factors associated with mobility are present 22. Obtain physician order for OT as appropriate 23. Utilize diversional activities 24. Educate patient and patient insurance claim representative how to maintain a safe environment during visitation times (notify nurse prior to leaving bedside) 25. Consider appropriateness of medical or non-medical staff coordinator 26. Set up voiding schedule as appropriate (every 2 hours) Outcome: Progressing Note: Evaluation of progress towards goal: No new falls or injuries noted. Safe environment maintained. Hourly rounding performed. Fall risk identification band in place. Will continue to monitor and assess. Problem: Metabolic/Fluid and Electrolytes - Adult Goal: Electrolytes maintained within normal limits Description: INTERVENTIONS 1. Monitor for signs and symptoms of hypovolemia (tachycardia, rapid breathing, decreased urine output, postural hypotension, sunken fontanel) 2. Monitor for signs and symptoms of hypervolemia (strong rapid pulse, rapid breathing, crackles heard in lung naidu, edema, decreased urine output, sudden weight gain, distended neck veins in older children, enlarged liver and spleen) 1. Monitor intake and output 2. Monitor pt's weight 1. Monitor labs and assess patient for signs and symptoms of electrolyte imbalances 2. Administer electrolyte replacement as ordered 3. Monitor response to electrolyte replacements, including repeat lab results as appropriate 4. Fluid restriction or hydration as ordered 5. Instruct patient/ legal insurance claim representative on nutrition/diet; fluid/hydration restrictions as appropriate Outcome: Progressing Note: Evaluation of progress towards goal: Electrolytes and labs checked. Electrolyte replacement as needed, labs rechecked throughout the day. Adequate nutrition and metabolic state assessed. Will continue to monitor. Goal: Glucose maintained within prescribed range Description: Patient's goal is: INTERVENTIONS 1. Monitor Blood Glucose as ordered 2. Assess for signs and symptoms of hyperglycemia and hypoglycemia 3. Administer ordered medications to maintain glucose within target range 4. Assess barriers to adequate nutritional intake and initiate nutrition consult as needed 5. Instruct patient/ legal insurance claim representative on self management of diabetes and initiate consult as needed Outcome: Progressing Note: Evaluation of progress towards goal: Pt BS checked q4. Insulin adm as needed per sliding scale. Pt will be monitored closely for hypo/hyper glycemia and the s/s associated with each. [facility] Algramo 06-16-2023 Plan of care note Problem: Pain Goal: Patient goal is pain score less than 4, able to rest, and participant in treatment plan as appropriate Description: INTERVENTIONS: 1. Encourage patient or legal insurance claim representative to report early pain and ask for pain medicine when needed 2. Assess pain using appropriate pain scale and include the scale used when documenting 3. Administer analgesics based on type and severity of pain and evaluate response within appropriate time frame 4. Implement non-pharmacological measures as appropriate and evaluate response 5. Consider cultural and social influences on pain and pain management 6. Notify LIP if interventions ineffective or patient reports new pain 7. Monitor vital signs including pulse ox, end-tidal CO2 based on pain intervention 8. Reassess pain per policy 9. Teach patient or legal insurance claim representative interventions for comforting Outcome: Progressing Note: Evaluation of progress towards goal: Pain scale 0-10 used. Patient denies pain. PRN medication ordered, see MAR. Non-pharmacological measures provided. Vital signs monitored. Patient educated to alert staff when in pain. Will continue to monitor and reassess. Problem: Safety Goal: Patient will be injury free during hospitalization Description: INTERVENTIONS: 1. Assess patient's risk for falls and implement fall prevention plan of care per policy 2. Provide and maintain a safe environment 3. Proper use of double Identifiers 4. Medication administration using the 5 rights 5. Hand hygiene 6. Specimens are labeled at the bedside 7. Instruct patient/ patient insurance claim representative about use of safety devices 8. Include patient/ patient insurance claim representative in decisions related to safety Outcome: Progressing Note: Evaluation of progress towards goal: Patient is a fall risk. Fall precautions maintained. Environment safe from hazards. Medication 5 rights used with every medication administration. Hand hygiene performed with all patient care. Specimens labeled at bedside. Will continue to monitor. Problem: Infection Goal: Absence of infection during hospitalization Description: Interventions: 1. Assess and monitor for signs and symptoms of infection 2. Monitor lab/diagnostic results 3. Monitor all insertion sites i.e., indwelling lines, tubes and drains 4. Monitor endotracheal (as able) and nasal secretions for changes in amount and color 5. Administer medications as ordered 6. Instruct and encourage patient and family to use good hand hygiene technique 7. Identify and instruct patient/patient insurance claim representative in use of appropriate isolation precautions for identified infection/symptoms 8. Provide and discuss with patient/patient insurance claim representative on educational MDRO sheet 9. Encourage and monitor nutritional status daily and consult toe closing machine tender if indicated 10. Implement neutropenic guidelines as needed 11. Review exposure to history of communicable disease and recent travel history on admission 12. Encourage annual influenza vaccine 13. Encourage pneumonia vaccine Outcome: Progressing Note: Evaluation of progress towards goal: Continuing to assess and monitor for s/s of infection. Labs, lines, drains, vitals, & tubes monitored. Hand hygiene performed with all patient care. Standard isolation precautions maintained. Will continue to monitor and reassess. Problem: Knowledge Deficit Goal: Patient/patient insurance claim representative demonstrates understanding of disease process, treatment plan, medications, and discharge instructions Description: INTERVENTIONS 1. Complete learning assessment and assess knowledge base 2. Provide teaching at level of understanding 3. Provide teaching via preferred learning method(s) Outcome: Progressing Note: Evaluation of progress towards goal: Problem: Discharge Planning Goal: Discharge to post-acute care, other facility, or home with appropriate resources Description: Patient's goal is: INTERVENTIONS 1. Conduct assessment to determine patient/family and health care team treatment goals, and need for post-acute services based on payer coverage, community resources, and patient preferences, and barriers to discharge 2. Coordinate with Social work, Care Navigation, and Utilization Review to arrange appropriate level of services according to patient's needs based on patient preference and payer coverage in collaboration with the physician and health care team 3. Address psychosocial, clinical, and financial barriers to discharge as identified in assessment in conjunction with the patient/family and health care team 4. Consult appropriate ancillary services (i.e.. PT/OT/ST, etc) as needed 5. Communicate with and update the patient/family, physician, and health care team regarding progress on the discharge plan 6. Identify discharge learning needs (meds, wound care, etc). 7. Arrange for needed discharge transportation as appropriate Outcome: Progressing Note: Evaluation of progress towards goal: Problem: Moderate - High Risk Fall Score Description: Mcintyre Fall Score of =/> 25 or indicated by [facility] Assessment Goal: Patient should be free from fall Description: Interventions: 1. Roggen to environment 2. Hourly rounds addressing the 4 P's (Pain, Positioning, Possessions, Potty) 3. Clear area of hazards (spills, clutter, electrical cords, unnecessary equipment) 4. Place equipment (bed & TV controls, call light, phone, urinal) within reach 5. Encourage patient to wear glasses and hearing aides as appropriate 6. Maintain bed in lowest position 7. Lock wheels on bed/wheelchair 8. Provide adequate lighting, including night light 9. Assess need for additional bedding, food/fluids, pain med's prior to sleep/routinely 10. Provide gripper slippers or personal non-skid footwear 11. Teach patient and patient insurance claim representative to maintain environment for safety and engage in all aspects of fall prevention program 12. Remind patient to call for help before getting out of bed 13. Initiate bed/chair/exit alarms supportive devices as appropriate, (chair wedge, no-skid floor mat, raised edge mattress, hip protectors) 14. Locate patient bed assignment for optimal visualization 15. Evaluate and identify Safe Patient Handling Equipment needs 16. Provide supervision when out of bed or chair 17. Utilize gait belt as needed to assist with ambulation 18. Place adaptive equipment (cane, walker) within reach 19. Request patient insurance claim representative bring adaptive equipment/mobility aids from home or obtain and provide as needed 20. Consult pharmacy regarding effects of med's affecting mobility, cognition, and alternatives 21. Obtain physician order for PT if risk factors associated with mobility are present 22. Obtain physician order for OT as appropriate 23. Utilize diversional activities 24. Educate patient and patient insurance claim representative how to maintain a safe environment during visitation times (notify nurse prior to leaving bedside) 25. Consider appropriateness of medical or non-medical staff coordinator 26. Set up voiding schedule as appropriate (every 2 hours) Outcome: Progressing Note: Evaluation of progress towards goal: Fall precautions maintained. Area clear from hazards. Bed locked and in the lowest position. Call light and personal items in reach. Patient educated to call out for assistance before attempting to get out of bed. Hourly rounding. Will continue to monitor and reassess. [facility] Consult note Formatting of th is note is different from the original. Images from the original note were not included. [facility] Academic Endocrinology [place] [facility] [address] [place] [address] Service Pager: Roddy Katz MD, Interim Chief MD Barbara Meneses PA-C Alexandrea Vizzaccaro, PA-C Austin Howard, PA-C Aneeba Farooqi, MD, Fellow Jaswant Weiner MD, Fellow NO NEED to PAGE for NEW CONSULTS Page for immediate attention. With this consult we assume full responsibility for diabetes care. Diabetes Management Service Consult Note Patient : Willy Presley Jr.; 38 y.o. Location: A710/01 Admit Date: 06/15/2023 Hospital Day: Hospital Day: 2 Reason for Consult: Diabetes management Blood Glucose Monitoring Results, Interpretation: Results from last 7 days Lab Units 06/16/23 0653 06/16/23 0604 06/16/23 0455 06/16/23 0404 06/16/23 0302 06/16/23 0207 06/16/23 0103 06/16/23 0038 06/15/23 2229 06/15/23 2043 BEDSIDE GLUCOSE mg/dL 208* 257* 302* 336* 401* 473* -- >500* >500* -- GLUCOSE mg/dL -- -- -- -- -- -- 549* -- -- 701* Results/Impression/Conclusion: [] Basal/Bolus insulin imbalance with significant glycemic variability [] Overnight blood glucose reduction [] Fasting hypoglycemia [] Postprandial hypoglyemia: after [] breakfast [] lunch [] evening meal [] nighttime snack [] Hypoglycemia due to over-correction [x] Fasting hyperglycemia [] Postprandial hyperglycemia: after [] breakfast [] lunch [] evening meal [] nighttime snack [] Hyperglycemia due to missing or improper timing of the scheduled dose of insulin/glucose-lowering medication Target glucose level in general care patients is 80-130mg/dL before meals, random glucose less than 180mg/dL. In ICU patients, target range is 140-180mg/dL in accordance with recommendations from the [place] [employer]. Blood glucoses above 200 mg/dl are [facility] monitored performance measures. ASSESSMENT and PLAN: Willy Presley Jr. has diabetes mellitus type 1 complicated by none. Admitted with DKA. 1. -DKA (diabetic ketoacidosis): gap closed On Insulin drip. Will start subcutaneous Insulin basal bolus regimen as below. Will titrate the Insulin drip off. DISCONTINUE INSULIN INFUSION IF LESS THAN 1 UNIT/HOUR IS REQUIRED TO KEEP BLOOD GLUCOSES ON TARGET (110-150 MG/DL) OR BELOW TARGET (70-109 MG/DL) FOR 2 CONSECUTIVE MEASUREMENTS. 2. DM Type 1 with hyperglycemia Last HbA1c: Lab Results Component Value Date HGBA1C 11.1 (H) 01/20/2019 Results from last 7 days Lab Units 06/16/23 0103 CREATININE mg/dL 1.31* The following changes were made: Basal insulin: Glargine (or Lantus) : _12_units, [] daily AM [] daily at bedtime [x] BID (9 AM, 9 PM) Prandial or meal insulin: Lispro (or Humalog) [] by insulin to carb ratio = __units: 15 grams of carbohydrate in a meal AC. Will add once patient is able to tolerate meals. Correctional insulin: Lispro (or Humalog): will add once Insulin drip is titrated off. [] 1-5 AC (above 150), 1-4 HS (above 200) [] 2-10 AC (above 150), 2-8 HS (above 200) For while NPO or tube feeding or TPN [] 1-5 q4h (above 150) [] 2-10 q4h (above 150) Thank you for consulting our Diabetes Management Team (Endocrinology). We will continue to follow up. History of Present Illness: Willy Presley Jr. is a 38 y.o. male with diabetes mellitus type 1 who was admitted with DKA. Diabetes History: Duration of Diabetes: Diagnosed at age 22. Had DKA at diagnosis Complications of Diabetes:Reports no known complications Retinopathy: No Nephropathy: No Peripheral neuropathy: No Autonomic neuropathy: No Cardiovascular disease: No Cerebrovascular disease: No Peripheral arterial disease: No Home regimen: Diabetes medications: Tandem Insulin pump in control IQ mode with Dexcom. (He is not sure of the Insulin pump settings, only thing he remembers is Basal rate is 1.1 and total daily insulin requirement is about 50-70 units) Home blood glucose monitoring: Dexcom Hypoglycemia frequency: 1-2 times/week. Usually during physical exertion at work. Hypoglycemic awareness: intact Patient reports following with Dr. Shaffer for diabetes management. Has been on insulin pump for about 5 years. Reports glucose numbers are usually in the range of 120-180. Reports changing his Dexcom transmitter and infusion set 2 days ago. Had been noticing higher numbers since yesterday morning and were not coming down despite multiple boluses. Reports prior episode of DKA was over 5 years ago. Steroids / Other Glycemia-Affecting Medications: [No] Inpatient diet/nutrition: Dietary Orders (From admission, onward) Start Ordered 06/15/23 8663 Adult diet NPO; Except medications Diet effective now Question Answer Comment Diet Type: NPO NPO Except: Except medications 06/15/23 5050 Past Medical History: Diagnosis Date Anxiety Diabetes mellitus type I ([facility]) Visual impairment GLASSES Past Surgical History: Procedure Laterality Date EXTRACTION CATARACT INTRAOCULAR LENS Left 01/27/2022 Performed by Matt Holden MD at [facility] Left 08/27/2020 Performed by Eugene Lopez MD at [facility] Right 07/09/2020 Performed by Eugene Lopez MD at [facility] SURGERY Right 11/2017 right foot, big toe, surgery after having an infection from a bug bite Prior to Admission medications Medication Sig Start Date End Date Taking? Authorizing Provider NovoLOG U-100 Insulin aspart 100 unit/mL injection Use up to 100 units daily via pump 05/25/20 Not In System Ref Prov ondansetron ODT (ZOFRAN ODT) 4 mg disintegrating tablet Dissolve 1 tablet (4 mg total) on tongue every 8 (eight) hours as needed for nausea for up to 10 doses. 06/06/23 Aby Verdin DO venlafaxine XR (EFFEXOR XR) 75 mg 24 hr capsule Take 1 capsule by mouth in the morning 09/27/22 CATY Oseguera Current Facility-Administered Medications: calcium gluconate IVPB 1000 mg/50 mL (20 mg/mL premix), 1,000 mg, intravenous, PRN OR calcium gluconate IVPB 2000 mg/100 mL (20 mg/mL premix), 2,000 mg, intravenous, PRN OR calcium gluconate 3,000 mg in sodium chloride 0.9 % 100 mL IVPB, 3,000 mg, intravenous, PRN, Jen Ennis MD dextrose (GLUTOSE) 40 % gel 15 g, 15 g, oral, PRN, Jen Ennis MD dextrose 5 % (D5W) infusion, 100 mL/hr, intravenous, Continuous PRN, Jen Ennis MD dextrose 5 % and sodium chloride 0.45 % with KCl 20 mEq/L infusion, 250 mL/hr, intravenous, Continuous PRN, Jen Ennis MD, Last Rate: 250 mL/hr at 06/16/23 0656, 250 mL/hr at 06/16/23 0656 dextrose 50 % in water (D50W) 50% solution 25 mL, 25 mL, intravenous, PRN, Jen Ennis MD enoxaparin (LOVENOX) syringe 40 mg, 40 mg, subcutaneous, Daily, Jen Ennis MD glucagon HCL injection 1 mg, 1 mg, intramuscular, PRN, Jen Ennis MD insulin regular (MYXREDLIN) infusion 100 units/100 mL in sodium chloride 0.9% (1 unit/mL premix), 0.2-54 Units/hr, intravenous, Continuous, Roger Lopez DO, Last Rate: 10 mL/hr at 06/16/23 06, 10 Units/hr at 06/16/23 06 magnesium sulfate IVPB 2000 mg/50 mL in iso-osmotic water (40 mg/mL premix), 2,000 mg, intravenous, PRN, Stopped at 06/16/23 0431 OR magnesium sulfate IVPB 4000 mg/100 mL in iso-osmotic water (40 mg/mL premix), 4,000 mg, intravenous, PRN, Jen Ennis MD [COMPLETED] piperacillin-tazobactam (ZOSYN) 4.5 g in sodium chloride 0.9 % 50 mL IVPB-MBP, 4.5 g, intravenous, Once, Stopped at 06/16/23 0519 FOLLOWED BY piperacillin-tazobactam (ZOSYN) 3.375 g in sodium chloride 0.9 % 50 mL IVPB-MBP, 3.375 g, intravenous, Q8H, Jen Ennis MD potassium chloride (K-TAB,KLOR-CON) CR tablet 20-50 mEq, 20-50 mEq, oral, PRN OR potassium chloride (KAYCIEL) 20 mEq/15 mL solution 20-50 mEq, 20-50 mEq, oral, PRN, Jen Ennis MD potassium chloride IVPB 10 mEq/50 mL in water (0.2 mEq/mL premix), 10 mEq, intravenous, PRN OR potassium chloride IVPB 10 mEq/100 mL in water (0.1 mEq/mL premix), 10 mEq, intravenous, PRN, Jen Ennis MD prochlorperazine (COMPAZINE) tablet 5 mg, 5 mg, oral, Q6H PRN OR prochlorperazine (COMPAZINE) injection 5 mg, 5 mg, intravenous, Q6H PRN OR prochlorperazine (COMPAZINE) injection 5 mg, 5 mg, intramuscular, Q6H PRN, Jen Ennis MD sodium phosphate 20 mmol in sodium chloride 0.9 % 250 mL IVPB, 20 mmol, intravenous, PRN OR sodium phosphate 20 mmol in sodium chloride 0.9 % 100 mL IVPB, 20 mmol, intravenous, PRN OR sod phos di, mono-K phos mono (K-PHOS NEUTRAL) 250 mg tablet 2 tablet, 2 tablet, oral, PRN, Jen Ennis MD sodium chloride 0.45 % with KCl 20 mEq/L infusion, 250 mL/hr, intravenous, Continuous, Jen Ennis MD, Last Rate: 250 mL/hr at 06/16/23 0606, Rate Verify at 06/16/23 0606 sodium chloride 0.9 % infusion, 10 mL/hr, intravenous, Continuous PRN, Jen Ennis MD sodium chloride 0.9 % infusion, 10 mL/hr, intravenous, Continuous PRN, Jen Ennis MD sodium chloride 0.9 % infusion, 10 mL/hr, intravenous, Continuous PRN, Jen Ennis MD, Stopped at 06/16/23 0533 vancomycin (VANCOCIN) 1,250 mg in sodium chloride 0.9 % 250 mL IVPB-MBP, 15 mg/kg, intravenous, Q12H, Jen Ennis MD No Known Allergies Social History Tobacco Use Smoking status: Never Smokeless tobacco: Current Types: Chew Vaping Use Vaping Use: Unknown Substance Use Topics Alcohol use: Yes Comment: very rarely, social Drug use: Never Review of Systems: Review of Systems Constitutional: Positive for appetite change and fatigue. Respiratory: Negative for chest tightness and shortness of breath. Cardiovascular: Negative for chest pain and palpitations. Gastrointestinal: Positive for abdominal pain. Negative for nausea and vomiting. Neurological: Positive for weakness. Physical Exam: BP 94/52 Pulse 109 Temp 36.9 C (98.4 F) (Axillary) Resp 13 Ht 180.3 cm (5' 11 ) Wt 88.7 kg (195 lb 8.8 oz) SpO2 94% BMI 27.27 kg/m Physical Exam Constitutional: General: He is not in acute distress. Cardiovascular: Rate and Rhythm: Normal rate. Pulses: Normal pulses. Pulmonary: Effort: Pulmonary effort is normal. Breath sounds: Normal breath sounds. Abdominal: General: Abdomen is flat. Palpations: Abdomen is soft. Comments: Insulin injection site hyper trophy Musculoskeletal: Right lower leg: No edema. Left lower leg: No edema. Skin: Capillary Refill: Capillary refill takes less than 2 seconds. Neurological: Mental Status: He is alert and oriented to person, place, and time. Mental status is at baseline. Psychiatric: Mood and Affect: Mood normal. Behavior: Behavior normal. Thought Content: Thought content normal. Intake/Output: Intake/Output Summary (Last 24 hours) at 06/16/2023 1048 Last data filed at 06/16/2023 1020 Gross per 24 hour Intake 4030.56 ml Output -- Net 4030.56 ml Recent Labs: Results from last 7 days Lab Units 06/16/23 0103 06/15/23 2043 WBC X10E9/L 16.5* 15.0* HEMOGLOBIN g/dL 11.5* 13.6 HEMATOCRIT % 35.1* 41.2 PLATELETS X10E9/L 232 277 Results from last 7 days Lab Units 06/16/23 0634 06/16/23 0402 06/16/23 0103 06/15/23 2253 06/15/23 2043 SODIUM mmol/L 136 < > 131* -- 128* POTASSIUM mmol/L 4.4 < > 4.6 < > 6.6* CHLORIDE mmol/L 106 < > 97* -- 87* CO2 mmol/L 24 < > 16* -- 17* BUN mg/dL -- -- 37* -- 31* CREATININE mg/dL -- -- 1.31* -- 1.38* CALCIUM mg/dL -- -- 8.0* -- 9.2 < > = values in this interval not displayed. Results from last 7 days Lab Units 06/16/23 0103 ALBUMIN g/dL 3.6 Last HbA1c: Lab Results Component Value Date HGBA1C 9.1 (H) 06/16/2023 Jaswant Weiner PGY 5, Endocrine fellow Associated attestation - Sterling, Roddy Mena - 06/16/2023 6:11 PM EST GC: I personally saw this patient on the day of the encounter, performed the huang portion(s) of the service and participated in the management and confirm the fellow/resident s documentation. Please note there may be additional personal documentation from me. Roddy Katz MD [facility] 06-16-2023 Consult note Formatting of th is note is different from the original. Images from the original note were not included. [facility] Endocrin[facility] [place] [facility] [address] [place] [address] Service Pager: Roddy Katz MD, Interim Chief MD Barbara Meneses PA-C Alexandrea Vizzaccaro, PA-C Austin Howard, PA-C Aneeba Farooqi, MD, Fellow Jaswant Weiner MD, Fellow NO NEED to PAGE for NEW CONSULTS Page for immediate attention. With this consult we assume full responsibility for diabetes care. Diabetes Management Service Consult Note Patient : Willy Presley Jr.; 38 y.o. Location: 1001 Admit Date: 06/15/2023 Hospital Day: Hospital Day: 2 Reason for Consult: Diabetes management Blood Glucose Monitoring Results, Interpretation: Results from last 7 days Lab Units 06/16/23 0653 06/16/23 0604 06/16/23 0455 06/16/23 0404 06/16/23 0302 06/16/23 0207 06/16/23 0103 06/16/23 0038 06/15/23 2229 06/15/23 2043 BEDSIDE GLUCOSE mg/dL 208* 257* 302* 336* 401* 473* -- >500* >500* -- GLUCOSE mg/dL -- -- -- -- -- -- 549* -- -- 701* Results/Impression/Conclusion: [] Basal/Bolus insulin imbalance with significant glycemic variability [] Overnight blood glucose reduction [] Fasting hypoglycemia [] Postprandial hypoglyemia: after [] breakfast [] lunch [] evening meal [] nighttime snack [] Hypoglycemia due to over-correction [x] Fasting hyperglycemia [] Postprandial hyperglycemia: after [] breakfast [] lunch [] evening meal [] nighttime snack [] Hyperglycemia due to missing or improper timing of the scheduled dose of insulin/glucose-lowering medication Target glucose level in general care patients is 80-130mg/dL before meals, random glucose less than 180mg/dL. In ICU patients, target range is 140-180mg/dL in accordance with recommendations from the [place] [employer]. Blood glucoses above 200 mg/dl are [facility] monitored performance measures. ASSESSMENT and PLAN: Willy Presley Jr. has diabetes mellitus type 1 complicated by none. Admitted with DKA. 1. -DKA (diabetic ketoacidosis): gap closed On Insulin drip. Will start subcutaneous Insulin basal bolus regimen as below. Will titrate the Insulin drip off. DISCONTINUE INSULIN INFUSION IF LESS THAN 1 UNIT/HOUR IS REQUIRED TO KEEP BLOOD GLUCOSES ON TARGET (110-150 MG/DL) OR BELOW TARGET (70-109 MG/DL) FOR 2 CONSECUTIVE MEASUREMENTS. 2. DM Type 1 with hyperglycemia Last HbA1c: Lab Results Component Value Date HGBA1C 11.1 (H) 01/20/2019 Results from last 7 days Lab Units 06/16/23 0103 CREATININE mg/dL 1.31* The following changes were made: Basal insulin: Glargine (or Lantus) : _12_units, [] daily AM [] daily at bedtime [x] BID (9 AM, 9 PM) Prandial or meal insulin: Lispro (or Humalog) [] by insulin to carb ratio = __units: 15 grams of carbohydrate in a meal AC. Will add once patient is able to tolerate meals. Correctional insulin: Lispro (or Humalog): will add once Insulin drip is titrated off. [] 1-5 AC (above 150), 1-4 HS (above 200) [] 2-10 AC (above 150), 2-8 HS (above 200) For while NPO or tube feeding or TPN [] 1-5 q4h (above 150) [] 2-10 q4h (above 150) Thank you for consulting our Diabetes Management Team (Endocrinology). We will continue to follow up. History of Present Illness: Willy Presley Jr. is a 38 y.o. male with diabetes mellitus type 1 who was admitted with DKA. Diabetes History: Duration of Diabetes: Diagnosed at age 22. Had DKA at diagnosis Complications of Diabetes:Reports no known complications Retinopathy: No Nephropathy: No Peripheral neuropathy: No Autonomic neuropathy: No Cardiovascular disease: No Cerebrovascular disease: No Peripheral arterial disease: No Home regimen: Diabetes medications: Tandem Insulin pump in control IQ mode with Dexcom. (He is not sure of the Insulin pump settings, only thing he remembers is Basal rate is 1.1 and total daily insulin requirement is about 50-70 units) Home blood glucose monitoring: Dexcom Hypoglycemia frequency: 1-2 times/week. Usually during physical exertion at work. Hypoglycemic awareness: intact Patient reports following with Dr. Shaffer for diabetes management. Has been on insulin pump for about 5 years. Reports glucose numbers are usually in the range of 120-180. Reports changing his Dexcom transmitter and infusion set 2 days ago. Had been noticing higher numbers since yesterday morning and were not coming down despite multiple boluses. Reports prior episode of DKA was over 5 years ago. Steroids / Other Glycemia-Affecting Medications: [No] Inpatient diet/nutrition: Dietary Orders (From admission, onward) Start Ordered 06/15/23 2355 Adult diet NPO; Except medications Diet effective now Question Answer Comment Diet Type: NPO NPO Except: Except medications 06/15/23 9496 Past Medical History: Diagnosis Date Anxiety Diabetes mellitus type I ([facility]) Visual impairment GLASSES Past Surgical History: Procedure Laterality Date EXTRACTION CATARACT INTRAOCULAR LENS Left 01/27/2022 Performed by Matt Holden MD at [facility] Left 08/27/2020 Performed by Eugene Lopez MD at [facility] Right 07/09/2020 Performed by Eugene Lopez MD at [facility] TOE SURGERY Right 11/2017 right foot, big toe, surgery after having an infection from a bug bite Prior to Admission medications Medication Sig Start Date End Date Taking? Authorizing Provider NovoLOG U-100 Insulin aspart 100 unit/mL injection Use up to 100 units daily via pump 05/25/20 Not In System Ref Prov ondansetron ODT (ZOFRAN ODT) 4 mg disintegrating tablet Dissolve 1 tablet (4 mg total) on tongue every 8 (eight) hours as needed for nausea for up to 10 doses. 06/06/23 Aby Verdin DO venlafaxine XR (EFFEXOR XR) 75 mg 24 hr capsule Take 1 capsule by mouth in the morning 09/27/22 CATY Oseguera Current Facility-Administered Medications: calcium gluconate IVPB 1000 mg/50 mL (20 mg/mL premix), 1,000 mg, intravenous, PRN OR calcium gluconate IVPB 2000 mg/100 mL (20 mg/mL premix), 2,000 mg, intravenous, PRN OR calcium gluconate 3,000 mg in sodium chloride 0.9 % 100 mL IVPB, 3,000 mg, intravenous, PRN, Jen Ennis MD dextrose (GLUTOSE) 40 % gel 15 g, 15 g, oral, PRN, Jen Ennis MD dextrose 5 % (D5W) infusion, 100 mL/hr, intravenous, Continuous PRN, Jen Ennis MD dextrose 5 % and sodium chloride 0.45 % with KCl 20 mEq/L infusion, 250 mL/hr, intravenous, Continuous PRN, Jen Ennis MD, Last Rate: 250 mL/hr at 06/16/23 06, 250 mL/hr at 06/16/23 06 dextrose 50 % in water (D50W) 50% solution 25 mL, 25 mL, intravenous, PRN, Jen Ennis MD enoxaparin (LOVENOX) syringe 40 mg, 40 mg, subcutaneous, Daily, Jen Ennis MD glucagon HCL injection 1 mg, 1 mg, intramuscular, PRN, Jen Ennis MD insulin regular (MYXREDLIN) infusion 100 units/100 mL in sodium chloride 0.9% (1 unit/mL premix), 0.2-54 Units/hr, intravenous, Continuous, Roger Lopez DO, Last Rate: 10 mL/hr at 06/16/23 06, 10 Units/hr at 06/16/23 06 magnesium sulfate IVPB 2000 mg/50 mL in iso-osmotic water (40 mg/mL premix), 2,000 mg, intravenous, PRN, Stopped at 06/16/23 0431 OR magnesium sulfate IVPB 4000 mg/100 mL in iso-osmotic water (40 mg/mL premix), 4,000 mg, intravenous, PRN, Jen Ennis MD [COMPLETED] piperacillin-tazobactam (ZOSYN) 4.5 g in sodium chloride 0.9 % 50 mL IVPB-MBP, 4.5 g, intravenous, Once, Stopped at 06/16/23 0519 FOLLOWED BY piperacillin-tazobactam (ZOSYN) 3.375 g in sodium chloride 0.9 % 50 mL IVPB-MBP, 3.375 g, intravenous, Q8H, Jen Ennis MD potassium chloride (K-TAB,KLOR-CON) CR tablet 20-50 mEq, 20-50 mEq, oral, PRN OR potassium chloride (KAYCIEL) 20 mEq/15 mL solution 20-50 mEq, 20-50 mEq, oral, PRN, Jen Ennis MD potassium chloride IVPB 10 mEq/50 mL in water (0.2 mEq/mL premix), 10 mEq, intravenous, PRN OR potassium chloride IVPB 10 mEq/100 mL in water (0.1 mEq/mL premix), 10 mEq, intravenous, PRN, Jen Ennis MD prochlorperazine (COMPAZINE) tablet 5 mg, 5 mg, oral, Q6H PRN OR prochlorperazine (COMPAZINE) injection 5 mg, 5 mg, intravenous, Q6H PRN OR prochlorperazine (COMPAZINE) injection 5 mg, 5 mg, intramuscular, Q6H PRN, Jen Ennis MD sodium phosphate 20 mmol in sodium chloride 0.9 % 250 mL IVPB, 20 mmol, intravenous, PRN OR sodium phosphate 20 mmol in sodium chloride 0.9 % 100 mL IVPB, 20 mmol, intravenous, PRN OR sod phos di, mono-K phos mono (K-PHOS NEUTRAL) 250 mg tablet 2 tablet, 2 tablet, oral, PRN, Jen Ennis MD sodium chloride 0.45 % with KCl 20 mEq/L infusion, 250 mL/hr, intravenous, Continuous, Jen Ennis MD, Last Rate: 250 mL/hr at 06/16/23 0606, Rate Verify at 06/16/23 0606 sodium chloride 0.9 % infusion, 10 mL/hr, intravenous, Continuous PRN, Jen Ennis MD sodium chloride 0.9 % infusion, 10 mL/hr, intravenous, Continuous PRN, Jen Ennis MD sodium chloride 0.9 % infusion, 10 mL/hr, intravenous, Continuous PRN, Jen Ennis MD, Stopped at 06/16/23 0533 vancomycin (VANCOCIN) 1,250 mg in sodium chloride 0.9 % 250 mL IVPB-MBP, 15 mg/kg, intravenous, Q12H, Jen Ennis MD No Known Allergies Social History Tobacco Use Smoking status: Never Smokeless tobacco: Current Types: Chew Vaping Use Vaping Use: Unknown Substance Use Topics Alcohol use: Yes Comment: very rarely, social Drug use: Never Review of Systems: Review of Systems Constitutional: Positive for appetite change and fatigue. Respiratory: Negative for chest tightness and shortness of breath. Cardiovascular: Negative for chest pain and palpitations. Gastrointestinal: Positive for abdominal pain. Negative for nausea and vomiting. Neurological: Positive for weakness. Physical Exam: BP 94/52 Pulse 109 Temp 36.9 C (98.4 F) (Axillary) Resp 13 Ht 180.3 cm (5' 11 ) Wt 88.7 kg (195 lb 8.8 oz) SpO2 94% BMI 27.27 kg/m Physical Exam Constitutional: General: He is not in acute distress. Cardiovascular: Rate and Rhythm: Normal rate. Pulses: Normal pulses. Pulmonary: Effort: Pulmonary effort is normal. Breath sounds: Normal breath sounds. Abdominal: General: Abdomen is flat. Palpations: Abdomen is soft. Comments: Insulin injection site hyper trophy Musculoskeletal: Right lower leg: No edema. Left lower leg: No edema. Skin: Capillary Refill: Capillary refill takes less than 2 seconds. Neurological: Mental Status: He is alert and oriented to person, place, and time. Mental status is at baseline. Psychiatric: Mood and Affect: Mood normal. Behavior: Behavior normal. Thought Content: Thought content normal. Intake/Output: Intake/Output Summary (Last 24 hours) at 06/16/2023 1048 Last data filed at 06/16/2023 1020 Gross per 24 hour Intake 4030.56 ml Output -- Net 4030.56 ml Recent Labs: Results from last 7 days Lab Units 06/16/23 0103 06/15/23 204 WBC X10E9/L 16.5* 15.0* HEMOGLOBIN g/dL 11.5* 13.6 HEMATOCRIT % 35.1* 41.2 PLATELETS X10E9/L 232 277 Results from last 7 days Lab Units 06/16/23 0634 06/16/23 0402 06/16/23 0103 06/15/23 2253 06/15/23 2043 SODIUM mmol/L 136 < > 131* -- 128* POTASSIUM mmol/L 4.4 < > 4.6 < > 6.6* CHLORIDE mmol/L 106 < > 97* -- 87* CO2 mmol/L 24 < > 16* -- 17* BUN mg/dL -- -- 37* -- 31* CREATININE mg/dL -- -- 1.31* -- 1.38* CALCIUM mg/dL -- -- 8.0* -- 9.2 < > = values in this interval not displayed. Results from last 7 days Lab Units 06/16/23 0103 ALBUMIN g/dL 3.6 Last HbA1c: Lab Results Component Value Date HGBA1C 9.1 (H) 06/16/2023 Jaswant Weiner PGY 5, Endocrine fellow Associated attestation - Roddy Katz - 06/16/2023 6:11 PM EST GC: I personally saw this patient on the day of the encounter, performed the huang portion(s) of the service and participated in the management and confirm the fellow/resident s documentation. Please note there may be additional personal documentation from me. Roddy Katz MD documented in this encounter [facility] 06-16-2023 Plan of care note Problem: Pain Goal: Patient goal is pain score less than 4, able to rest, and participant in treatment plan as appropriate Description: INTERVENTIONS: 1. Encourage patient or legal insurance claim representative to report early pain and ask for pain medicine when needed 2. Assess pain using appropriate pain scale and include the scale used when documenting 3. Administer analgesics based on type and severity of pain and evaluate response within appropriate time frame 4. Implement non-pharmacological measures as appropriate and evaluate response 5. Consider cultural and social influences on pain and pain management 6. Notify LIP if interventions ineffective or patient reports new pain 7. Monitor vital signs including pulse ox, end-tidal CO2 based on pain intervention 8. Reassess pain per policy 9. Teach patient or legal insurance claim representative interventions for comforting Outcome: Progressing Note: Evaluation of progress towards goal: pt denies pain at this time Problem: Safety Goal: Patient will be injury free during hospitalization Description: INTERVENTIONS: 1. Assess patient's risk for falls and implement fall prevention plan of care per policy 2. Provide and maintain a safe environment 3. Proper use of double Identifiers 4. Medication administration using the 5 rights 5. Hand hygiene 6. Specimens are labeled at the bedside 7. Instruct patient/ patient insurance claim representative about use of safety devices 8. Include patient/ patient insurance claim representative in decisions related to safety Outcome: Progressing Note: Evaluation of progress towards goal: free from injury r/t hospital stay at this time Problem: Infection Goal: Absence of infection during hospitalization Description: Interventions: 1. Assess and monitor for signs and symptoms of infection 2. Monitor lab/diagnostic results 3. Monitor all insertion sites i.e., indwelling lines, tubes and drains 4. Monitor endotracheal (as able) and nasal secretions for changes in amount and color 5. Administer medications as ordered 6. Instruct and encourage patient and family to use good hand hygiene technique 7. Identify and instruct patient/patient insurance claim representative in use of appropriate isolation precautions for identified infection/symptoms 8. Provide and discuss with patient/patient insurance claim representative on educational MDRO sheet 9. Encourage and monitor nutritional status daily and consult toe closing machine tender if indicated 10. Implement neutropenic guidelines as needed 11. Review exposure to history of communicable disease and recent travel history on admission 12. Encourage annual influenza vaccine 13. Encourage pneumonia vaccine Outcome: Progressing Note: Evaluation of progress towards goal: WBC noted and being monitored. Problem: Knowledge Deficit Goal: Patient/patient insurance claim representative demonstrates understanding of disease process, treatment plan, medications, and discharge instructions Description: INTERVENTIONS 1. Complete learning assessment and assess knowledge base 2. Provide teaching at level of understanding 3. Provide teaching via preferred learning method(s) Outcome: Progressing Note: Evaluation of progress towards goal: pt states understanding of POC at this time Problem: Discharge Planning Goal: Discharge to post-acute care, other facility, or home with appropriate resources Description: Patient's goal is: INTERVENTIONS 1. Conduct assessment to determine patient/family and health care team treatment goals, and need for post-acute services based on payer coverage, community resources, and patient preferences, and barriers to discharge 2. Coordinate with Social work, Care Navigation, and Utilization Review to arrange appropriate level of services according to patient's needs based on patient preference and payer coverage in collaboration with the physician and health care team 3. Address psychosocial, clinical, and financial barriers to discharge as identified in assessment in conjunction with the patient/family and health care team 4. Consult appropriate ancillary services (i.e.. PT/OT/ST, etc) as needed 5. Communicate with and update the patient/family, physician, and health care team regarding progress on the discharge plan 6. Identify discharge learning needs (meds, wound care, etc). 7. Arrange for needed discharge transportation as appropriate Outcome: Progressing Note: Evaluation of progress towards goal: from home prior to admission Problem: Glucose Imbalance Goal: Clinical indication of glucose balance is achieved Description: Patient's goal is: INTERVENTIONS 1. Monitor blood glucose levels as ordered 2. Administer medications as ordered 3. Notify physician of ineffective treatment plan Outcome: Progressing Note: Evaluation of progress towards goal: being monitored per order Goal: Patient's discharge needs are met Description: Patient's goal is: INTERVENTIONS 1. Assess patient for self-management skills 2. Encourage participation in diabetes management 3. Identify potential discharge barriers on admission and throughout hospital stay 4. Involve patient/S.O. in discharge planning process 5. Communicate referral to hardboard panel printer as appropriate 6. Communicate referral to toe closing machine tender as appropriate 7. Collaborate with case management/geriatric social worker for discharge needs Outcome: Progressing Note: Evaluation of progress towards goal: new admit Problem: Moderate - High Risk Fall Score Description: Mcintyre Fall Score of =/> 25 or indicated by [facility] Assessment Goal: Patient should be free from fall Description: Interventions: 1. [place] to environment 2. Hourly rounds addressing the 4 P's (Pain, Positioning, Possessions, Potty) 3. Clear area of hazards (spills, clutter, electrical cords, unnecessary equipment) 4. Place equipment (bed & TV controls, call light, phone, urinal) within reach 5. Encourage patient to wear glasses and hearing aides as appropriate 6. Maintain bed in lowest position 7. Lock wheels on bed/wheelchair 8. Provide adequate lighting, including night light 9. Assess need for additional bedding, food/fluids, pain med's prior to sleep/routinely 10. Provide gripper slippers or personal non-skid footwear 11. Teach patient and patient insurance claim representative to maintain environment for safety and engage in all aspects of fall prevention program 12. Remind patient to call for help before getting out of bed 13. Initiate bed/chair/exit alarms supportive devices as appropriate, (chair wedge, no-skid floor mat, raised edge mattress, hip protectors) 14. Locate patient bed assignment for optimal visualization 15. Evaluate and identify Safe Patient Handling Equipment needs 16. Provide supervision when out of bed or chair 17. Utilize gait belt as needed to assist with ambulation 18. Place adaptive equipment (cane, walker) within reach 19. Request patient insurance claim representative bring adaptive equipment/mobility aids from home or obtain and provide as needed 20. Consult pharmacy regarding effects of med's affecting mobility, cognition, and alternatives 21. Obtain physician order for PT if risk factors associated with mobility are present 22. Obtain physician order for OT as appropriate 23. Utilize diversional activities 24. Educate patient and patient insurance claim representative how to maintain a safe environment during visitation times (notify nurse prior to leaving bedside) 25. Consider appropriateness of medical or non-medical staff coordinator 26. Set up voiding schedule as appropriate (every 2 hours) Outcome: Progressing Note: Evaluation of progress towards goal: free from falls Problem: Metabolic/Fluid and Electrolytes - Adult Goal: Electrolytes maintained within normal limits Description: INTERVENTIONS 1. Monitor for signs and symptoms of hypovolemia (tachycardia, rapid breathing, decreased urine output, postural hypotension, sunken fontanel) 2. Monitor for signs and symptoms of hypervolemia (strong rapid pulse, rapid breathing, crackles heard in lung naidu, edema, decreased urine output, sudden weight gain, distended neck veins in older children, enlarged liver and spleen) 1. Monitor intake and output 2. Monitor pt's weight 1. Monitor labs and assess patient for signs and symptoms of electrolyte imbalances 2. Administer electrolyte replacement as ordered 3. Monitor response to electrolyte replacements, including repeat lab results as appropriate 4. Fluid restriction or hydration as ordered 5. Instruct patient/ legal insurance claim representative on nutrition/diet; fluid/hydration restrictions as appropriate Outcome: Progressing Note: Evaluation of progress towards goal: being monitored per DKA protocol Goal: Glucose maintained within prescribed range Description: Patient's goal is: INTERVENTIONS 1. Monitor Blood Glucose as ordered 2. Assess for signs and symptoms of hyperglycemia and hypoglycemia 3. Administer ordered medications to maintain glucose within target range 4. Assess barriers to adequate nutritional intake and initiate nutrition consult as needed 5. Instruct patient/ legal insurance claim representative on self management of diabetes and initiate consult as needed Outcome: Progressing Note: Evaluation of progress towards goal: being monitored hourly per order [facility] [employer] [facility] 06-16-2023 History and physical note Images from the original note were not included. Adult ICU History & Physical Patient - [facility] Pres[facility] Jr[facility] Age [facility] 38 [facility] 1985 [id number] Date of Admission - 06/15/2023 7:57 PM Chief Complaint High blood sugar History of Present Illness Willy Presley Jr. is a 38 y.o. male with a past medical history of uncontrolled type 1 diabetes mellitus, depression, anxiety who presented with high blood sugar. Patient states he has had high blood sugars since 11:00 a.m.. He does use an insulin pump. He states that he is compliant with his insulin pump. He states that today he used 70 units of insulin and hyperglycemia persisted. His last blood sugar at home was in the 400s. He does also report nausea, vomiting, increased thirst. Denies any shortness of breath and chest pain. He does follow with Endocrinology as an outpatient. He states that he has been in DKA before. He reports that he is compliant with his insulin. In the ED, labs were significant for WBC 15, sodium 128, potassium 6.6, chloride 87, CO2 17, glucose 71, creatinine 1.38, BUN 31, anion gap 24, phosphorus 5.8, beta hydroxybutyrate 7.20. UA with glucose greater than 1000 and ketones greater than 160. EKG with sinus tachycardia and peaked T-waves. Patient was admitted to ICU for further evaluation management of diabetic ketoacidosis On my evaluation, patient is uncomfortable in bed. He says that he does have nausea and vomiting. Denies any chest pain and shortness breath. Past Medical History: Past Medical History: Diagnosis Date Anxiety Diabetes mellitus type I (CMS-HCC) Visual impairment GLASSES Past Surgical History: Past Surgical History: Procedure Laterality Date EXTRACTION CATARACT INTRAOCULAR LENS Left 01/27/2022 Performed by Matt Holden MD at [facility] Left 08/27/2020 Performed by Eugene Lopez MD at [facility] Right 07/09/2020 Performed by Eugene Lopez MD at [facility] TOE SURGERY Right 11/2017 right foot, big toe, surgery after having an infection from a bug bite Home Medications: Prior to Admission medications Medication Sig Start Date End Date Taking? Authorizing Provider NovoLOG U-100 Insulin aspart 100 unit/mL injection Use up to 100 units daily via pump 05/25/20 Not In System Ref Prov ondansetron ODT (ZOFRAN ODT) 4 mg disintegrating tablet Dissolve 1 tablet (4 mg total) on tongue every 8 (eight) hours as needed for nausea for up to 10 doses. 06/06/23 Aby Verdin DO venlafaxine XR (EFFEXOR XR) 75 mg 24 hr capsule Take 1 capsule by mouth in the morning 09/27/22 CATY Oseguera Allergies: Patient has no known allergies. Social History: reports that he has never smoked. His smokeless tobacco use includes chew. He reports current alcohol use. He reports that he does not use drugs. Family History: Family History Problem Relation Age of Onset Diabetes Father Diabetes Paternal Aunt Diabetes Paternal Uncle Anesthesia problems Neg Hx Review of Systems: Review of Systems Constitutional: Negative for fever. Respiratory: Negative for choking and shortness of breath. Cardiovascular: Negative for chest pain/discomfort. Gastrointestinal: Positive for abdominal pain, nausea and vomiting. Psychiatric/Behavioral: Negative for agitation, behavioral problems and confusion. Physical Exam BP 106/53 Pulse (!) 122 Temp 36.7 C (98.1 F) (Axillary) Resp 19 Ht 180.3 cm (5' 11 ) Wt 90.7 kg (200 lb) SpO2 96% BMI 27.89 kg/m No intake or output data in the 24 hours ending 06/16/23 0001 Respiratory Source: O2 Device: None (Room air) Admission weight: 90.7 kg (200 lb) Physical Exam Constitutional: General: He is in acute distress. Appearance: He is ill-appearing. He is not toxic-appearing or diaphoretic. HENT: Head: Normocephalic and atraumatic. Nose: No congestion or rhinorrhea. Eyes: Extraocular Movements: Extraocular movements intact. Cardiovascular: Rate and Rhythm: Regular rhythm. Tachycardia present. Pulses: Normal pulses. Heart sounds: Normal heart sounds. Pulmonary: Effort: Pulmonary effort is normal. Breath sounds: Normal breath sounds. Abdominal: General: Abdomen is flat. Palpations: Abdomen is soft. Musculoskeletal: Right lower leg: No edema. Left lower leg: No edema. Skin: General: Skin is warm and dry. Neurological: Mental Status: He is oriented to person, place, and time. Labs/Imaging Recent Results (from the past 24 hour(s)) CBC auto differential Collection Time: 06/15/23 8:43 PM Result Value Ref Range White Blood Cells 15.0 (H) 4.0 - 11.0 X10E9/L RBC count 4.57 4.10 - 5.70 X10E12/L Hemoglobin 13.6 13.0 - 17.0 g/dL Hematocrit 41.2 39 - 49 % MCV 90 80 - 100 fL MCH 29.6 27 - 34 pg MCHC 32.9 32 - 36 g/dL RDW 12.7 11.5 - 15.0 % Platelets 277 150 - 450 X10E9/L MPV 11.3 7 - 12 fL % neutrophils 89.5 % % lymphocytes 6.9 % % monocytes 3.5 % % eosinophils 0.0 % % Basophils 0.1 % Neutrophils Absolute (A) 13.4 (H) 1.5 - 6.6 X10E9/L Lymphocytes Absolute 1.0 1.0 - 3.5 X10E9/L Monocytes Absolute 0.5 0 - 0.9 X10E9/L Eosinophils Absolute 0.0 0.0 - 0.4 X10E9/L Basophils Absolute 0.0 0.0 - 0.2 X10E9/L Basic Metabolic Panel Collection Time: 06/15/23 8:43 PM Result Value Ref Range Sodium 128 (L) 134 - 146 mmol/L Potassium, Bld 6.6 (HH) 3.5 - 5.0 mmol/L Chloride 87 (L) 98 - 109 mmol/L CO2 17 (L) 22 - 32 mmol/L Anion gap 24 (H) 5 - 15 mmol/L BUN 31 (H) 5 - 23 mg/dL Creatinine 1.38 (H) 0.60 - 1.30 mg/dL Glucose 701 (HH) 65 - 99 mg/dL Calcium 9.2 8.5 - 10.5 mg/dL eGFR (CKD-EPI)non-race dependent 68 >59 ml/min/1.73sq.m Magnesium Collection Time: 06/15/23 8:43 PM Result Value Ref Range Magnesium 2.0 1.8 - 2.6 mg/dL Phosphorus Collection Time: 06/15/23 8:43 PM Result Value Ref Range Phosphorus 5.8 (H) 2.4 - 4.9 mg/dL Acetone, (BetaHydroxybutyrate, Ketone) quantitative, serum Collection Time: 06/15/23 8:43 PM Result Value Ref Range Beta hydroxy buterate 7.20 (H) 0.02 - 0.27 mmol/L ER Extra Urine Collection Time: 06/15/23 9:11 PM Result Value Ref Range ER Extra Urine ER EXTRA URINE ORDER IN PROCESS Blood gas, venous Collection Time: 06/15/23 9:11 PM Result Value Ref Range Sample Type VENOUS Body Temp 37.0 37.0 C pH, Venous 7.279 (L) 7.320 - 7.420 PCO2, Venous 37.4 35 - 50 MMHG PO2, Venous 38 30 - 50 MMHG Base,Deficit 9.0 (H) 0.0 - 2.0 MMOL/L Portable HCO3 17.5 (L) 20.0 - 24.0 MMOL/L % O2 Sat 65.0 (L) >80.0 % Tommy's Test NA SPO2 98 % Sample Site N/A Insp. O2 Conc. 21 % Oxygen Source RoomAir POCT Nursing Urine Macroscopic UA Collection Time: 06/15/23 9:17 PM Result Value Ref Range Specific gravity GIDEON 1.015 1.003 - 1.035 Leukocyte esterase GIDEON Negative Negative^Negative Nitrite GIDEON Negative Negative^Negative Ph 5.0 5.0 - 8.5 Protein GIDEON Negative Negative^Negative mg/dL Urine glucose GIDEON >=1000 (A) Negative^Negative mg/dL Ketones GIDEON >=160 (A) Negative^Negative mg/dL Urobilinogen GIDEON 0.2 <1.1 eu/dL Bilirubin GIDEON Negative Negative^Negative Hemoglobin GIDEON Trace (A) Negative^Negative Bedside Glucose *Place/Obtain serum glucose if >500(>600 MRH) per glucometer. Collection Time: 06/15/23 10:29 PM Result Value Ref Range Bedside glucose >500 (HH) 65 - 99 mg/dL No results found. Microbiology Results Procedure Component Value Units Date/Time SARS/FLU A+B/RSV by NAAT/Molecular (M4RT Collection Tube) [[id number]] Collected: 06/15/232300 Specimen: NASOPHARYNGEAL Updated: 06/15/232328 ASSESSMENT Diabetic ketoacidosis Type 1 diabetes mellitus, uncontrolled A1c 10.1% 10/05/2021 Anion gap metabolic acidosis Hyponatremia Hyperkalemia Elevated creatinine Sinus tachycardia Hyperphosphatemia Major depressive disorder new line generalized anxiety disorder Tobacco use Liver hemangioma PLAN Start insulin infusion Start half-normal saline with KCl with p.r.n. D5 half-normal saline with KCl BMP q.2 hours Obtain VBG Will transition to have home dose once anion gap closes. Consult endocrinology for recommendations as patient uses an insulin pump. Give calcium gluconate for hyperkalemia with EKG changes. Follow-up urine studies Follow-up sepsis workup As WBC is increasing and he is positive for SIRS criteria, will start vancomycin and Zosyn. Replace electrolytes per ICU protocol Resume appropriate home medications once medication reconciliation complete Sedation: None Vasopressors: None Antibiotics: None DVT prophylaxis: Lovenox GI prophylaxis: None Lines: PIV x2 Diet: NPO Fluids: Half-normal saline with KCl, p.r.n. D5 half-normal saline with KCl 250 mL/hour Code Status: Full code This progress note was completed using a voice blueprint assembler system. Every effort was made to ensure accuracy. However, inadvertent computerized blueprint assembler errors may be present. Jen Ennis MD PGY-3 Internal Medicine Resident Adult ICU 06/16/23 12:01 AM Associated attestation - Tayler Betancur DO - 06/16/2023 3:17 PM EST Attestation signed by 3:10 PM PULMONARY/CRITICAL CARE ATTENDING ATTESTATION I have personally and independently examined the patient. I confirm the note and agree with the assessment and plan as documented by the resident Please note there may be additional comments below. Comments Patient states feeling better today just weak and tired. Presented with feeling poorly, nauseated. Has insulin pump and was using it. Attempted to give bolus of insulin in response to high glucose reading but no change to sugars. Follows with endocrinology and reports being transitioned to lantus but has not started yet. Recommendations On DKA protocol. Gap is closed and glucose level improved. Endocrinology following. Denies any symptoms of illness such as cough, chills, diarrhea, rash, sinus congestion. Can transfer out of ICU later today. Tayler Betancur DO. [facility] Pulmonary and Sleep Pulmonary / Critical Care Pager: [phone] [facility] [employer] Work Phone: 06-16-2023 History and physical note Images from the original note were not included. Adult ICU History & Physical Patient - Willy Presley Jr[facility] Age - 38 [facility] 1985 [id number] Date of Admission - 06/15/2023 7:57 PM Chief Complaint High blood sugar History of Present Illness Willy Presley Jr. is a 38 y.o. male with a past medical history of uncontrolled type 1 diabetes mellitus, depression, anxiety who presented with high blood sugar. Patient states he has had high blood sugars since 11:00 a.m.. He does use an insulin pump. He states that he is compliant with his insulin pump. He states that today he used 70 units of insulin and hyperglycemia persisted. His last blood sugar at home was in the 400s. He does also report nausea, vomiting, increased thirst. Denies any shortness of breath and chest pain. He does follow with Endocrinology as an outpatient. He states that he has been in DKA before. He reports that he is compliant with his insulin. In the ED, labs were significant for WBC 15, sodium 128, potassium 6.6, chloride 87, CO2 17, glucose 71, creatinine 1.38, BUN 31, anion gap 24, phosphorus 5.8, beta hydroxybutyrate 7.20. UA with glucose greater than 1000 and ketones greater than 160. EKG with sinus tachycardia and peaked T-waves. Patient was admitted to ICU for further evaluation management of diabetic ketoacidosis On my evaluation, patient is uncomfortable in bed. He says that he does have nausea and vomiting. Denies any chest pain and shortness breath. Past Medical History: Past Medical History: Diagnosis Date Anxiety Diabetes mellitus type I ([facility]) Visual impairment GLASSES Past Surgical History: Past Surgical History: Procedure Laterality Date EXTRACTION CATARACT INTRAOCULAR LENS Left 01/27/2022 Performed by Matt Holden MD at [facility] Left 08/27/2020 Performed by Eugene Lopez MD at [facility] Right 07/09/2020 Performed by Eugene Lopez MD at [facility] TO[facility] Right 11/2017 right foot, big toe, surgery after having an infection from a bug bite Home Medications: Prior to Admission medications Medication Sig Start Date End Date Taking? Authorizing Provider NovoLOG U-100 Insulin aspart 100 unit/mL injection Use up to 100 units daily via pump 05/25/20 Not In System Ref Prov ondansetron ODT (ZOFRAN ODT) 4 mg disintegrating tablet Dissolve 1 tablet (4 mg total) on tongue every 8 (eight) hours as needed for nausea for up to 10 doses. 06/06/23 Aby Verdin DO venlafaxine XR (EFFEXOR XR) 75 mg 24 hr capsule Take 1 capsule by mouth in the morning 09/27/22 CATY Oseguera Allergies: Patient has no known allergies. Social History: reports that he has never smoked. His smokeless tobacco use includes chew. He reports current alcohol use. He reports that he does not use drugs. Family History: Family History Problem Relation Age of Onset Diabetes Father Diabetes Paternal Aunt Diabetes Paternal Uncle Anesthesia problems Neg Hx Review of Systems: Review of Systems Constitutional: Negative for fever. Respiratory: Negative for choking and shortness of breath. Cardiovascular: Negative for chest pain/discomfort. Gastrointestinal: Positive for abdominal pain, nausea and vomiting. Psychiatric/Behavioral: Negative for agitation, behavioral problems and confusion. Physical Exam BP 106/53 Pulse (!) 122 Temp 36.7 C (98.1 F) (Axillary) Resp 19 Ht 180.3 cm (5' 11 ) Wt 90.7 kg (200 lb) SpO2 96% BMI 27.89 kg/m No intake or output data in the 24 hours ending 06/16/23 0001 Respiratory Source: O2 Device: None (Room air) Admission weight: 90.7 kg (200 lb) Physical Exam Constitutional: General: He is in acute distress. Appearance: He is ill-appearing. He is not toxic-appearing or diaphoretic. HENT: Head: Normocephalic and atraumatic. Nose: No congestion or rhinorrhea. Eyes: Extraocular Movements: Extraocular movements intact. Cardiovascular: Rate and Rhythm: Regular rhythm. Tachycardia present. Pulses: Normal pulses. Heart sounds: Normal heart sounds. Pulmonary: Effort: Pulmonary effort is normal. Breath sounds: Normal breath sounds. Abdominal: General: Abdomen is flat. Palpations: Abdomen is soft. Musculoskeletal: Right lower leg: No edema. Left lower leg: No edema. Skin: General: Skin is warm and dry. Neurological: Mental Status: He is oriented to person, place, and time. Labs/Imaging Recent Results (from the past 24 hour(s)) CBC auto differential Collection Time: 06/15/23 8:43 PM Result Value Ref Range White Blood Cells 15.0 (H) 4.0 - 11.0 X10E9/L RBC count 4.57 4.10 - 5.70 X10E12/L Hemoglobin 13.6 13.0 - 17.0 g/dL Hematocrit 41.2 39 - 49 % MCV 90 80 - 100 fL MCH 29.6 27 - 34 pg MCHC 32.9 32 - 36 g/dL RDW 12.7 11.5 - 15.0 % Platelets 277 150 - 450 X10E9/L MPV 11.3 7 - 12 fL % neutrophils 89.5 % % lymphocytes 6.9 % % monocytes 3.5 % % eosinophils 0.0 % % Basophils 0.1 % Neutrophils Absolute (A) 13.4 (H) 1.5 - 6.6 X10E9/L Lymphocytes Absolute 1.0 1.0 - 3.5 X10E9/L Monocytes Absolute 0.5 0 - 0.9 X10E9/L Eosinophils Absolute 0.0 0.0 - 0.4 X10E9/L Basophils Absolute 0.0 0.0 - 0.2 X10E9/L Basic Metabolic Panel Collection Time: 06/15/23 8:43 PM Result Value Ref Range Sodium 128 (L) 134 - 146 mmol/L Potassium, Bld 6.6 (HH) 3.5 - 5.0 mmol/L Chloride 87 (L) 98 - 109 mmol/L CO2 17 (L) 22 - 32 mmol/L Anion gap 24 (H) 5 - 15 mmol/L BUN 31 (H) 5 - 23 mg/dL Creatinine 1.38 (H) 0.60 - 1.30 mg/dL Glucose 701 (HH) 65 - 99 mg/dL Calcium 9.2 8.5 - 10.5 mg/dL eGFR (CKD-EPI)non-race dependent 68 >59 ml/min/1.73sq.m Magnesium Collection Time: 06/15/23 8:43 PM Result Value Ref Range Magnesium 2.0 1.8 - 2.6 mg/dL Phosphorus Collection Time: 06/15/23 8:43 PM Result Value Ref Range Phosphorus 5.8 (H) 2.4 - 4.9 mg/dL Acetone, (BetaHydroxybutyrate, Ketone) quantitative, serum Collection Time: 06/15/23 8:43 PM Result Value Ref Range Beta hydroxy buterate 7.20 (H) 0.02 - 0.27 mmol/L ER Extra Urine Collection Time: 06/15/23 9:11 PM Result Value Ref Range ER Extra Urine ER EXTRA URINE ORDER IN PROCESS Blood gas, venous Collection Time: 06/15/23 9:11 PM Result Value Ref Range Sample Type VENOUS Body Temp 37.0 37.0 C pH, Venous 7.279 (L) 7.320 - 7.420 PCO2, Venous 37.4 35 - 50 MMHG PO2, Venous 38 30 - 50 MMHG Base,Deficit 9.0 (H) 0.0 - 2.0 MMOL/L Portable HCO3 17.5 (L) 20.0 - 24.0 MMOL/L % O2 Sat 65.0 (L) >80.0 % Tommy's Test NA SPO2 98 % Sample Site N/A Insp. O2 Conc. 21 % Oxygen Source RoomAir POCT Nursing Urine Macroscopic UA Collection Time: 06/15/23 9:17 PM Result Value Ref Range Specific gravity GIDEON 1.015 1.003 - 1.035 Leukocyte esterase GIDEON Negative Negative^Negative Nitrite GIDEON Negative Negative^Negative Ph 5.0 5.0 - 8.5 Protein GIDEON Negative Negative^Negative mg/dL Urine glucose GIDEON >=1000 (A) Negative^Negative mg/dL Ketones GIDEON >=160 (A) Negative^Negative mg/dL Urobilinogen GIDEON 0.2 <1.1 eu/dL Bilirubin GIDEON Negative Negative^Negative Hemoglobin GIDEON Trace (A) Negative^Negative Bedside Glucose *Place/Obtain serum glucose if >500(>600 MRH) per glucometer. Collection Time: 06/15/23 10:29 PM Result Value Ref Range Bedside glucose >500 (HH) 65 - 99 mg/dL No results found. Microbiology Results Procedure Component Value Units Date/Time SARS/FLU A+B/RSV by NAAT/Molecular (M4RT Collection Tube) [[id number]] Collected: 06/15/232300 Specimen: NASOPHARYNGEAL Updated: 06/15/232328 ASSESSMENT Diabetic ketoacidosis Type 1 diabetes mellitus, uncontrolled A1c 10.1% 10/05/2021 Anion gap metabolic acidosis Hyponatremia Hyperkalemia Elevated creatinine Sinus tachycardia Hyperphosphatemia Major depressive disorder new line generalized anxiety disorder Tobacco use Liver hemangioma PLAN Start insulin infusion Start half-normal saline with KCl with p.r.n. D5 half-normal saline with KCl BMP q.2 hours Obtain VBG Will transition to have home dose once anion gap closes. Consult endocrinology for recommendations as patient uses an insulin pump. Give calcium gluconate for hyperkalemia with EKG changes. Follow-up urine studies Follow-up sepsis workup As WBC is increasing and he is positive for SIRS criteria, will start vancomycin and Zosyn. Replace electrolytes per ICU protocol Resume appropriate home medications once medication reconciliation complete Sedation: None Vasopressors: None Antibiotics: None DVT prophylaxis: Lovenox GI prophylaxis: None Lines: PIV x2 Diet: NPO Fluids: Half-normal saline with KCl, p.r.n. D5 half-normal saline with KCl 250 mL/hour Code Status: Full code This progress note was completed using a voice blueprint assembler system. Every effort was made to ensure accuracy. However, inadvertent computerized blueprint assembler errors may be present. Jen Ennis MD PGY-3 Internal Medicine Resident Adult ICU 06/16/23 12:01 AM Associated attestation - Tayler Betancur DO - 06/16/2023 3:17 PM EST Attestation signed by 3:10 PM PULMONARY/CRITICAL CARE ATTENDING ATTESTATION I have personally and independently examined the patient. I confirm the note and agree with the assessment and plan as documented by the resident Please note there may be additional comments below. Comments Patient states feeling better today just weak and tired. Presented with feeling poorly, nauseated. Has insulin pump and was using it. Attempted to give bolus of insulin in response to high glucose reading but no change to sugars. Follows with endocrinology and reports being transitioned to lantus but has not started yet. Recommendations On DKA protocol. Gap is closed and glucose level improved. Endocrinology following. Denies any symptoms of illness such as cough, chills, diarrhea, rash, sinus congestion. Can transfer out of ICU later today. Tayler Betancur DO. [facility] Pulmonary and Sleep Pulmonary / Critical Care Pager: [phone] documented in this encounter [facility] 06-15-2023 Emergency department Triage note Pt has had high blood sugar since 11AM. Pt states he has a pump that normally keeps up with his sugar but that he even gave himself additional doses and his sugar still hasn't come down. Pt reports his last sugar was in the 400s. Pt is also c/o YOUNG, N/V, dry mouth. Pt denies CP, SOB, diarrhea, or any other accompanying symptoms. Pt is Aox4. [facility] 06-15-2023 Emergency department Note Pt has had high blood sugar since 11AM. Pt states he has a pump that normally keeps up with his sugar but that he even gave himself additional doses and his sugar still hasn't come down. Pt reports his last sugar was in the 400s. Pt is also c/o YOUNG, N/V, dry mouth. Pt denies CP, SOB, diarrhea, or any other accompanying symptoms. Pt is Aox4. documented in this encounter [facility] 07-22-2020 Evaluation note Diagnosis Diabetic ketoacidosis without coma associated with type 1 diabetes mellitus (CMS-HCC)- Primary Liver hemangioma - repeat MRI 07/2020 Overweight (BMI 25.0-29.9) Overweight Moderate major depression (CMS-HCC) Major depressive disorder, single episode, moderate MALIK (generalized anxiety disorder) Generalized anxiety disorder [facility] Diagnosis Family history of GA (myocardial infarction)- Primary Family history of ischemic heart disease Nausea and vomiting, unspecified vomiting type Overweight (BMI 25.0-29.9) Overweight Need for vaccination Need for prophylactic vaccination and inoculation against unspecified single disease [facility] Diagnosis Diabetic ketoacidosis without coma associated with type 1 diabetes mellitus (CMS-HCC)- Primary Diabetic ketoacidosis without coma associated with type 1 diabetes mellitus (CMS-HCC) [facility] Diagnosis Positive cardiac stress test- Primary [facility]* Diagnosis Abnormal stress ECG- Primary Family history of GA (myocardial infarction) Family history of ischemic heart disease Chest pain, unspecified type [facility]* Diagnosis Nausea and vomiting, unspecified vomiting type [facility]* Attachments The following attachments cannot be sent through Care Everywhere. * Health Risks of a High BMI (Citizen Of [place]) [facility]* Attachments The following attachments cannot be sent through Care Everywhere. * Diabetes and diet (Citizen Of [place]) [facility] documented [facility]ructionsNot on file documented in [facility]ructionsNot on file [facility] Summary Purpose Family History No Family History Records FoundNo Family History Records FoundNo Family History Records FoundNo Family History Records Found Advance Directives Date Activated Date Inactivated Comments 06/15/2023 11:59 PM 06/17/2023 3:39 PM Date Activated Date Inactivated Comments 01/09/2019 3:04 AM 01/15/2019 5:07 PM Latest Code Status on File Code Status Date Activated Date Inactivated Comments Full Code 06/15/2023 11:59 PM Code Status History Code Status Date Activated Date Inactivated Comments Full Code 01/09/2019 3:04 AM 01/15/2019 5:07 PM Latest Code Status on File Code Status Date Activated Date Inactivated Comments Full Code 06/15/2023 11:59 PM 06/17/2023 3:39 PM Date Activated Date Inactivated Comments 06/15/2023 11:59 PM 06/17/2023 3:39 PM Date Activated Date Inactivated Comments 01/09/2019 3:04 AM 01/15/2019 5:07 PM Reason for Referral Specialty Diagnoses / Procedures Referred By Contac t Referred To Contact Procedures Discharge Follow-Up Cheyanne Marley DO [address] [place] [address], [address] [place] [id number] Referral ID Status Reason Start Date Expiration Date V isits Requested Visits Authorized [id number] Pending Review 06/17/2023 06/16/2024 1 1 Specialty Diagnoses / Procedures Referred By Contac t Referred To Contact Diagnoses Diabetic ketoacidosis without coma associated with type 1 diabetes mellitus ([facility]) Procedures Follow-up with primary care provider Cheyanne Marley [address], [address] [place] [id number] Referral ID Status Reason Start Date Expiration Date V isits Requested Visits Authorized [id number] Pending Review 06/17/2023 06/16/2024 1 1 Specialty Diagnoses / Procedures Referred By Contac t Referred To Contact Procedures No dressing needed Cheyanne Marley [address], [address] [place] [phone] Referral ID Status Reason Start Date Expiration Date V isits Requested Visits Authorized [id number] Pending Review 06/17/2023 06/16/2024 1 1 Specialty Diagnoses / Procedures Referred By Contac t Referred To Contact Procedures Adult diet Cheyanne Marley [address], [address] [place] [phone] Referral ID Status Reason Start Date Expiration Date V isits Requested Visits Authorized [id number] Pending Review 06/17/2023 06/16/2024 1 1 Specialty Diagnoses / Procedures Referred By Contac t Referred To Contact Radiology Diagnoses Liver hemangioma Procedures MR abdomen with and without contrast Francia Jett, PA [address] [place] [id number] Referral ID Status Reason Start Date Expiration Date V isits Requested Visits Authorized [id number] Pending Review 06/21/2023 06/20/2024 1 1 Additional Source Comments (unrecognized sect ion and content) No Status Records FoundNo Status Records FoundNo Status Records FoundNo Status Records Found INFORMATION SOURCE (unrecogn ized section and content) DATE CREATED AUTHOR 04/06/2019 [facility] DATE CREATED AUTHOR AUTHOR'S ORGANIZ ATION 06/08/2024 [facility] DATE CREATED AUTHOR AUTHOR'S ORGANIZ ATION 06/11/[address] DATE CREATED AUTHOR AUTHOR'S ORGANIZ ATION 07/04/2024 [facility] Reason for Visit (unrecogniz ed section and content) Reason Comments Regular check up He just recently los t his father due to a heart attack and his uncle had a heart attack and he would like to discuss this with his PCP Reason Comments High Blood Sugar - Symptomatic Nausea Vomiting Specialty Diagnoses / Procedures Referred By Ai mendoza Referred To Contact Diagnoses Tachycardia Diabetic ketoacidosis without coma associated with type 1 diabetes mellitus ([facility]) Brian Medrano MD [address] [facility] [place] [address] Referral ID Status Reason Start Date Expiration Date Visits Re quested Visits Authorized [id number] 1 1 Reason Comments Transition Of Care He was seen in the [facility] and admitted for DK Reason Comments 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-HX of heart attacks in family-no covid/hosp stays/-labs in April-stress test prior to appt.-sched w/pt Specialty Diagnoses / Procedures Referred By Ai mendoza Referred To Contact Cardiology Diagnoses Family history of GA (myocardial infarction) Francia Jett, PA [address] [place] [address] Phone: tel: fax: Adrián Novak MD [address] [facility] [place] [address] Phone: tel: fax: Referral ID Status Reason Start Date Expiration Date Visits Requested Visits Authorized [id number] Pending Review Specialty Services Required 05/21/2024 05/21/2025 1 1 Reason Onset Date Comments Med Refill 06/10/2024 Reason Comments Med Refill Care Teams (unrecognized sec tion and content) Lpn Relationship Specialty Start Date End Date Francia Jett PA [address] [place] [phone] PCP - General Physician Professor Of Geology 01/22/19 Lpn Relationship Specialty Start Date End Date Francia Jett PA [address] [place] [phone] PCP - General Physician Professor Of Geology 01/22/19 Lpn Relationship Specialty Start Date End Date Francia Jett PA [address] [place] [phone] PCP - General Physician Professor Of Geology 01/22/19 Lpn Relationship Specialty Start Date End Date Francia Jett PA [address] [place] [id number] PCP - General Physician Professor Of Geology 01/22/19 Lpn Relationship Specialty Start Date End Date Francia Jett PA [address] [place] [id number] PCP - General Physician Professor Of Geology 01/22/19 Lpn Relationship Specialty Start Date End Date Francia Jett PA [address] [place] [phone] PCP - General Physician Professor Of Geology 01/22/19 Scheduled Active and Recently Administ ered Medications (unrecognized section and content) Medication Order 06/15/2023 06/16/2023 06/17/2023 calcium gluconate IVPB 2000 mg/100 mL (20 mg/mL premix) (COMPLETED) 2,000 mg, intravenous, at 600 mL/hr, Administer over 10 Minutes, Once, On 06/16/23 at 0025, For 1 dose, Administer over 10 minutes. VESICANT (RED) 0118 (New Bag - Provider: Elkin Sidhu RN)0128 (Stop Bag - Provider: Elkin Sidhu RN) enoxaparin (LOVENOX) syringe 40 mg 40 mg, subcutaneous, Daily, First dose on 06/16/23 at 0600, When Creatinine Clearance 30 mL/min or greater Look-alike/sound-alike medication - verify indication for use. 0600 (Not Given - Provider: Elkin Sidhu RN - Reason: Patient/family refused) 0600 (Not Given - Provider: Elkin Sidhu RN - Reason: Patient/family refused) insulin glargine (LANTUS, SEMGLEE) injection pen 12 Units (CANCELED) 12 Units, subcutaneous, 2 times daily, First dose on 06/16/23 at 1100, Look-alike/sound-alike medication - verify indication for use. Prime with 2 units of insulin prior to administration. Basal (long acting) insulin for subcutaneous administration only. Do not mix with any other insulin. Pre-filled pens stable 28 days at room temperature. 1008 (Given - Provider: Rima Collins RN - Comment: bs 116)2117 (Given - Provider: Elkin Sidhu RN) insulin glargine (LANTUS, SEMGLEE) injection pen 16 Units 16 Units, subcutaneous, 2 times daily, First dose (after last modification) on 06/17/23 at 0900, Look-alike/sound-alike medication - verify indication for use. Prime with 2 units of insulin prior to administration. Basal (long acting) insulin for subcutaneous administration only. Do not mix with any other insulin. Pre-filled pens stable 28 days at room temperature. 0919 (Given - Provider: Rima Collins RN - Comment: bs [phone])2100 (Due) insulin lispro (HumaLOG) injection 1-4 Units (CANCELED) 1-4 Units, subcutaneous, Nightly, First dose on 06/16/23 at 2200, Bedtime hyperglycemia dosing. For blood glucose 201-250 mg/dL, give 1 unit. For blood glucose 251-300 mg/dL, give 2 units. For blood glucose 301-350 mg/dL, give 3 units. For blood glucose 351-400 mg/dL, give 4 units. Give even if NPO or meals skipped. Do NOT give more often than every 4 hours when NPO. Look-alike/sound-alike medication - verify indication for use. Prime with 2 units of insulin prior to administration. Prandial/supplemental Insulin. Pre-filled pens stable 28 days at room temperature. Insulin lispro should be administered within 15 minutes before or immediately after a meal. 2117 (Given - Provider: Elkin Sidhu RN - Comment: bg [phone]) insulin lispro (HumaLOG) injection 1-5 Units (CANCELED) 1-5 Units, subcutaneous, 3 times daily with meals, First dose on 06/16/23 at 1200, Daytime hyperglycemia dosing. For blood glucose 151-200 mg/dL, give 1 unit. For blood glucose 201-250 mg/dL, give 2 units. For blood glucose 251-300 mg/dL, give 3 units. For blood glucose 301-350 mg/dL, give 4 units. For blood glucose 351-400 mg/dL, give 5 units. Give even if NPO or meals skipped. Do NOT give more often than every 4 hours when NPO. Look-alike/sound-alike medication - verify indication for use. Prime with 2 units of insulin prior to administration. Prandial/supplemental Insulin. Pre-filled pens stable 28 days at room temperature. Insulin lispro should be administered within 15 minutes before or immediately after a meal. 1200 (Not Given - Provider: Rima Collins RN - Reason: Order parameters not met - Comment: bs [phone] (Given - Provider: Rima Collins RN - Comment: bs 195) 0800 (Canceled Entry - Provider: Rima Collins RN) insulin lispro (HumaLOG) injection 1-8 Units (CANCELED) 1-8 Units, subcutaneous, 4 times daily with meals and nightly, First dose on 06/16/23 at 1200, Please give 1 units per 10 grams of carbohydrates up to 8 units per 80 grams of carbohydrates within 15 minutes of finishing meals together with correction insulin when needed. Look-alike/sound-alike medication - verify indication for use. Prime with 2 units of insulin prior to administration. Prandial/supplemental Insulin. Pre-filled pens stable 28 days at room temperature. Insulin lispro should be administered within 15 minutes before or immediately after a meal. 1227 (Given - Provider: Rima Collins RN - Comment: bs 174, ate 70 carbs)1722 (Given - Provider: Rima Collins RN - Comment: 60 grams)2200 (Not Given - Provider: Elkin Sidhu RN - Reason: Order parameters not met - Comment: Pt eaten no carbs since last coverage.) 0800 (Canceled Entry - Provider: Rima Collins RN) insulin lispro (HumaLOG) injection 2-10 Units 2-10 Units, subcutaneous, 3 times daily with meals, First dose on 06/17/23 at 0900, Daytime hyperglycemia dosing. For blood glucose 151-200 mg/dL, give 2 units. For blood glucose 201-250 mg/dL, give 4 units. For blood glucose 251-300 mg/dL, give 6 units. For blood glucose 301-350 mg/dL, give 8 units. For blood glucose 351-400 mg/dL, give 10 units. Give even if NPO or meals skipped. Do NOT give more often then every 4 hours when NPO. Look-alike/sound-alike medication - verify indication for use. Prime with 2 units of insulin prior to administration. Prandial/supplemental Insulin. Pre-filled pens stable 28 days at room temperature. Insulin lispro should be administered within 15 minutes before or immediately after a meal. 0921 (Given - Provider: Rima Collins RN - Comment: bs [phone])1200 (Due)1700 (Due) insulin lispro (HumaLOG) injection 2-10 Units 2-10 Units, subcutaneous, 4 times daily with meals and nightly, First dose (after last modification) on 06/17/23 at 0845, Please give 2 units per 15 grams of carbohydrates up to 10 units per 75 grams of carbohydrates within 15 minutes of finishing meals together with correction insulin when needed. Look-alike/sound-alike medication - verify indication for use. Prime with 2 units of insulin prior to administration. Prandial/supplemental Insulin. Pre-filled pens stable 28 days at room temperature. Insulin lispro should be administered within 15 minutes before or immediately after a meal. 918 (Given - Provider: Rima Collins RN - Comment: bs [phone])1200 (Due)1700 (Due)2200 (Due) insulin lispro (HumaLOG) injection 2-8 Units 2-8 Units, subcutaneous, Nightly, First dose on 06/17/23 at 2200, Bedtime hyperglycemia dosing. For blood glucose 201-250 mg/dL, give 2 units. For blood glucose 251-300 mg/dL, give 4 units. For blood glucose 301-350 mg/dL, give 6 units. For blood glucose 351-400 mg/dL, give 8 units. Give even if NPO or meals skipped. Do NOT give more often then every 4 hours when NPO. Look-alike/sound-alike medication - verify indication for use. Prime with 2 units of insulin prior to administration. Prandial/supplemental Insulin. Pre-filled pens stable 28 days at room temperature. Insulin lispro should be administered within 15 minutes before or immediately after a meal. 2199 (Due) metoclopramide (REGLAN) injection 10 mg (COMPLETED) 10 mg, intravenous, Once, On Sun06/15/23 at 2210, For 1 dose, Administer over 2 minutes. 2220 (Given - Provider: Dinorah Worley RN) ondansetron (PF) (ZOFRAN) injection 4 mg (COMPLETED) 4 mg, intravenous, Once, On Sun06/15/23 at 2024, For 1 dose, Administer over 2-5 minutes. 2044 (Given - Provider: Dinorah Worley RN) piperacillin-tazobactam (ZOSYN) 3.375 g in sodium chloride 0.9 % 50 mL IVPB-MBP (CANCELED)(Linked Group 1) 3.375 g, intravenous, at 12.5 mL/hr, Administer over 4 Hours, Every 8 hours, First dose on Sun06/16/23 at 0700, Dose adjusted per [facility] approved piperacillin-tazobactam policy. First dose of 3.375 gram to be 4 hours after 4.5 gram dose if frequency is every 8 hours or 8 hours after 4.5 gram dose if frequency is every 12 hours. ADD-VANTAGE/MBP- Discard 24 hours after activating; dissolve drug prior to administration, Indication: Sepsis 911 (New Bag - Provider: Rima Collins RN)1020 (Rate/Dose Verify - Provider: Rima Collins RN)1047 (Stop Bag - Provider: Rima Collins RN - Comment: Time automatically adjusted from order being discontinued) piperacillin-tazobactam (ZOSYN) 4.5 g in sodium chloride 0.9 % 50 mL IVPB-MBP (COMPLETED)(Linked Group 1) 4.5 g, intravenous, at 100 mL/hr, Administer over 30 Minutes, Once, On 06/16/23 at 0300, For 1 dose, Loading dose per [facility] approved piperacillin-tazobactam policy. First dose of 3.375 gram to be 4 hours after 4.5 gram dose if frequency is every 8 hours or 8 hours after 4.5 gram dose if frequency is every 12 hours. ADD-VANTAGE/MBP- Discard 24 hours after activating; dissolve drug prior to administration, Indication: Sepsis 0449 (New Bag - Provider: Elkin Sidhu RN)0519 (Stop Bag - Provider: Elkin Sidhu RN) sodium chloride 0.9 % bolus (COMPLETED) 1,000 mL, intravenous, at 984 mL/hr, Administer over 61 Minutes, Once, On Sun06/15/23 at 2015, For 1 dose 2046 (New Bag - Provider: Dinorah Worley RN)2147 (Stop Bag - Provider: Dinorah Worley RN) sodium chloride 0.9 % bolus (COMPLETED)(Linked Group 2) 500 mL, intravenous, at 968 mL/hr, Administer over 31 Minutes, Once, On 06/16/23 at 0245, For 1 dose 0330 (New Bag - Provider: Elkin Sidhu RN)0401 (Stop Bag - Provider: Elkin Sidhu, RN) sodium chloride 0.9 % bolus (COMPLETED)(Linked Group 2) 500 mL, intravenous, at 968 mL/hr, Administer over 31 Minutes, Once, On 06/16/23 at 0245, For 1 dose 0258 (New Bag - Provider: Elkin Sidhu RN)0329 (Stop Bag - Provider: Elkin Sidhu RN)0329 (Stop Bag - Provider: Elkin Sidhu, RN)0329 (Stop Bag - Provider: Elkin Sidhu, RN) vancomycin (VANCOCIN) IVPB 1750 mg in 500 mL sodium chloride 0.9% (CMPD premix) (COMPLETED) 1,750 mg (rounded from 1,774 mg = 20 mg/kg 88.7 kg), intravenous, at 268 mL/hr, Administer over 120 Minutes, Once, On 06/16/23 at 0400, For 1 dose, VESICANT (YELLOW), Indication: Other, Specify: sepsis 0533 (New Bag - Provider: Elkin Sidhu RN)0606 (Rate/Dose Verify - Provider: Elkin Sidhu RN)0733 (Stop Bag - Provider: Rima Collins RN) Continuous Medication Order 06/15/2023 06/16/2023 06/17/2023 insulin regular (MYXREDLIN) infusion 100 units/100 mL in sodium chloride 0.9% (1 unit/mL premix) (CANCELED) 0.2-54 Units/hr (0.2-54 mL/hr), intravenous, Continuous, Starting on Sun06/15/23 at 2255, DISCONTINUE INSULIN INFUSION IF LESS THAN 1 UNIT/HOUR IS REQUIRED TO KEEP BLOOD GLUCOSES ON TARGET (110-150 MG/DL) OR BELOW TARGET (70-109 MG/DL) FOR 2 CONSECUTIVE MEASUREMENTS. INSULIN RESISTANT. Insulin Infusion Orders: Initiating Infusion: Use the patient's current blood glucose result and guidelines in Table A Column 3 to initiate infusion. If subcutaneous rapid-acting insulin is administered with meals, stay in the same column at the same rate for the next 2 hours. Rules for Column changes after initiating drip: Determine hourly drip rate by comparing the current blood glucose result to previous blood glucose result with guidelines in Table B to adjust insulin infusion. Rules for Column 7-9 changes: use the patient's current blood glucose result and guidelines in Table B and Table C to adjust insulin infusion. Stop Insulin Infusion for potassium level 3.3 mmol/L or less. *Do not change insulin drip rate for 2 hours if correction scale given for meal. Look-alike/sound-alike medication. Verify indication for use. 2317 (New Bag - Provider: Dinorah Worley RN)2357 (Continue to Inpatient Floor - Provider: Adriana Zamorano RN) 0405 (Rate/Dose Change - Provider: Elkin Sidhu RN)0457 (Rate/Dose Change - Provider: Elkin Sidhu RN)0457 (Rate/Dose Verify - Provider: Elkin Sidhu RN)0606 (Rate/Dose Verify - Provider: Elkin Sidhu RN)0606 (New Bag - Provider: Elkin Sidhu RN)0650 (Handoff - Provider: Elkin Sidhu RN)0806 (Rate/Dose Change - Provider: Rima Collins RN - Comment: bs 209)0906 (Rate/Dose Change - Provider: Rima Collins RN - Comment: bs 159)1007 (Rate/Dose Change - Provider: Rima Collins RN - Comment: bs 116)1106 (Rate/Dose Change - Provider: Rima Collins RN - Comment: bs 91)1112 (Stop Bag - Provider: Rima Collins RN) sodium chloride 0.45 % infusion (CANCELED) 250 mL/hr, intravenous, Continuous, Starting on 06/16/23 at 0000, For blood glucose greater than 250 mg/dL. Once IV fluid is changed to dextrose-containing formulation, DO NOT change to zpp-kytltkur-ptjysjcqfe IV fluid if blood glucose exceeds 250 mg/dL. 0112 (New Bag - Provider: Elkin Sidhu RN)0300 (Stop Bag - Provider: Elkin Sidhu RN)0318 (Paused - Provider: Elkin Sidhu RN)0320 (Restarted - Provider: Elkin Sidhu RN)0331 (Stop Bag - Provider: Elkin Sidhu RN) sodium chloride 0.45 % with KCl 20 mEq/L infusion (CANCELED) 250 mL/hr, intravenous, Continuous, Starting on 06/16/23 at 0315, For blood glucose greater than 250 mg/dL. Once IV fluid is changed to dextrose-containing formulation, DO NOT change to dri-vgvcppij-seznajjbzr IV fluid if blood glucose exceeds 250 mg/dL. 0335 (New Bag - Provider: Elkin Sidhu RN)0338 (Paused - Provider: Elkin Sidhu RN)0341 (Restarted - Provider: Elkin Sidhu RN)0346 (Stop Bag - Provider: Elkin Sidhu RN)0347 (New Bag - Provider: Elkin Sidhu RN)0606 (Rate/Dose Verify - Provider: Elkin Sidhu, RN)0655 (Stop Bag - Provider: Rima Collins RN) PRN Medication Order 06/15/2023 06/16/2023 06/17/2023 calcium gluconate 3,000 mg in sodium chloride 0.9 % 100 mL IVPB(Linked Group 3) 3,000 mg, intravenous, at 130 mL/hr, Administer over 60 Minutes, As needed, for ionized calcium level less than 3 mg/dL, Starting on Sun06/15/23 at 2354, CALL PHYSICIAN if this dose is administered. Recheck ionized calcium 6 hours after infusion. Hold calcium replacement for phosphorus greater than 5.5 mg/dL. VESICANT (RED) calcium gluconate IVPB 1000 mg/50 mL (20 mg/mL premix)(Linked Group 3) 1,000 mg, intravenous, at 50 mL/hr, Administer over 60 Minutes, As needed, for ionized calcium level 3.5 to 4.4 mg/dL, Starting on Sun06/15/23 at 2354, Recheck ionized calcium 6 hours after infusion. Hold calcium replacement for phosphorus greater than 5.5 mg/dL. VESICANT (RED) calcium gluconate IVPB 2000 mg/100 mL (20 mg/mL premix)(Linked Group 3) 2,000 mg, intravenous, at 100 mL/hr, Administer over 60 Minutes, As needed, for ionized calcium level 3 to 3.4 mg/dL, Starting on Sun06/15/23 at 2354, Recheck ionized calcium 6 hours after infusion. Hold calcium replacement for phosphorus greater than 5.5 mg/dL. VESICANT (RED) dextrose (GLUTOSE) 40 % gel 15 g 15 g, oral, As needed, low blood sugar, blood glucose less than 70 mg/dL, Starting on Sun06/15/23 at 2352, If patient conscious and taking PO. If blood glucose is not greater than 70 mg/dL after initial treatment, repeat treatment. dextrose 5 % (D5W) infusion 100 mL/hr, intravenous, Continuous PRN, blood glucose less than 70 mg/dL, Starting on Sun06/15/23 at 2352, Use immediately following dextrose 50% or glucagon treatment for patients who are unconscious or NPO. Contact prescriber for additional orders. If blood glucose is not greater than 70 mg/dL after initial treatment, repeat treatment. dextrose 5 % and sodium chloride 0.45 % with KCl 20 mEq/L infusion 250 mL/hr, intravenous, Continuous PRN, for blood glucose 250mg/dL or less, Starting on Sun06/16/23 at 0309, Once IV fluid is changed to dextrose-containing formulation, DO NOT change to guz-sjuygjqd-skrzyngizx IV fluid if blood glucose exceeds 250 mg/dL. 0656 (New Bag - Provider: Benjy Sidhu RN)0908 (Rate/Dose Verify - Provider: Rima Collins RN)1010 (Rate/Dose Verify - Provider: Rima Collins RN)1020 (Rate/Dose Verify - Provider: Rima Collins RN)1112 (Stop Bag - Provider: Rima Collins RN) dextrose 50 % in water (D50W) 50% solution 25 mL 25 mL, intravenous, As needed, low blood sugar, blood glucose less than 70 mg/dL and unconscious or NPO with IV access, Starting on Sun06/15/23 at 2352, Push over 1-3 minutes STAT. If conscious and not NPO, immediately follow with meal tray or high protein (7 grams) snack if tray not available. If NPO, initiate 5% dextrose in water at 100 mL/hr and contact prescriber for additional orders. If blood glucose is not greater than 70 mg/dL after initial treatment, repeat treatment. VESICANT (RED) Warning: HYPERTONIC solution. glucagon HCL injection 1 mg 1 mg, intramuscular, As needed, low blood sugar, blood glucose less than 70 mg/dL and unconscious or NPO without IV access., Starting on Sun06/15/23 at 2352, If conscious and not NPO, immediately follow with meal tray or high protein (7Grams) snack if tray not available. If NPO, initiate IV 5% Dextrose/Water at 100 mL/hr and contact prescriber for additional orders. If blood glucose is not greater than 70 mg/dL after initial treatment, repeat treatment. magnesium sulfate IVPB 2000 mg/50 mL in iso-osmotic water (40 mg/mL premix)(Linked Group 4) 2,000 mg, intravenous, at 25 mL/hr, Administer over 120 Minutes, As needed, for magnesium level 1.7 to 1.9 mg/dL or ionized magnesium level 0.45 to 0.5 mmol/L, Starting on Sun06/15/23 at 2354, Use premix solution. Default to ionized magnesium level in cases where patient has both magnesium and ionized magnesium results. If administered, check ionized magnesium (or total magnesium if ionized magnesium unavailable) level 4 hours after infusion. 0231 (New Bag - Provider: Benjy Sidhu RN)0318 (Paused - Provider: Elkin Sidhu RN)0320 (Restarted - Provider: Elkin Sidhu RN)0431 (Stop Bag - Provider: Elkin Sidhu RN) magnesium sulfate IVPB 4000 mg/100 mL in iso-osmotic water (40 mg/mL premix)(Linked Group 4) 4,000 mg, intravenous, at 25 mL/hr, Administer over 240 Minutes, As needed, for magnesium level 1.6 mg/mL or less, or ionized magnesium level 0.44 mmol/L or less, Starting on Sun06/15/23 at 2354, Use premix solution. Default to ionized magnesium level in cases where patient has both magnesium and ionized magnesium results. If administered, check ionized magnesium (or total magnesium if ionized magnesium unavailable) level 4 hours after infusion. 0231 (See Alternative - Provider: Elkin Sidhu RN)0318 (See Alternative - Provider: Elkin Sidhu RN)0320 (See Alternative - Provider: Elkin Sidhu RN)0431 (See Alternative - Provider: Elkin Sidhu RN) potassium chloride (K-TAB,KLOR-CON) CR tablet 20-50 mEq(Linked Group 5) 20-50 mEq, oral, As needed, for potassium replacement, Starting on Sun06/15/23 at 2354, Progress to oral potassium replacement when patient tolerating oral intake. If dose administered, recheck potassium level 4 hours after last dose. For potassium level 3.4 to 3.8 mmol/L and Serum Creatinine 1.2 or less=30 mEq. For potassium level 3.1 to 3.3 mmol/L and Serum Creatinine 1.2 or less=40 mEq. For potassium level 3 mmol/L or less and Serum Creatinine 1.2 or less=50 mEq. For potassium level 3.4 to 3.8 mmol/L and Serum Creatinine greater than 1.2=20 mEq. For potassium level 3.1 to 3.3 mmol/L and Serum Creatinine greater than 1.2=30 mEq. For potassium level 3 mmol/L or less and Serum Creatinine greater than 1.2=40 mEq. Do not crush or chew. potassium chloride (KAYCIEL) 20 mEq/15 mL solution 20-50 mEq(Linked Group 5) 20-50 mEq, oral, As needed, potassium replacement, Starting on Sun06/15/23 at 2354, Progress to oral potassium replacement when patient tolerating oral intake. If dose administered, recheck potassium level 4 hours after last dose. For potassium level 3.4 to 3.8 mmol/L and Serum Creatinine 1.2 or less=30 mEq (22.5mL). For potassium level 3.1 to 3.3 mmol/L and Serum Creatinine 1.2 or less=40 mEq (30mL). For potassium level 3 mmol/L or less and Serum Creatinine 1.2 or less=50 mEq (37.5mL). For potassium level 3.4 to 3.8 mmol/L and Serum Creatinine greater than 1.2=20 mEq (15mL). For potassium level 3.1 to 3.3 mmol/L and Serum Creatinine greater than 1.2=30 mEq (22.5mL). For potassium level 3 mmol/L or less and Serum Creatinine greater than 1.2=40 mEq (30mL). Must dilute before use - Mix in 3-8 ounces of water or juice before administration When administering in feeding tube, flush before and after per policy and monitor potassium levels potassium chloride IVPB 10 mEq/100 mL in water (0.1 mEq/mL premix)(Linked Group 6) 10 mEq, intravenous, at 100 mL/hr, Administer over 60 Minutes, As needed, for potassium replacement, Starting on Sun06/15/23 at 2354, Administer Potassium Chloride IVPB in 10 mEq increments. Maximum infusion rates: Central Line = 20 mEq/hour; Peripheral Line = 10 mEq/hour (10 mEq/100 mL). If dose administered, recheck potassium level 1 hour after infusion complete. For potassium level 3.4 to 3.8 mmol/L and Serum Creatinine 1.2 or less = 30 mEq For potassium level 3.1 to 3.3 mmol/L and Serum Creatinine 1.2 or less = 40 mEq For potassium level 3 mmol/L or less and Serum Creatinine 1.2 or less = 50 mEq For potassium level 3.4 to 3.8 mmol/L and Serum Creatinine greater than 1.2 = 20 mEq For potassium level 3.1 to 3.3 mmol/L and Serum Creatinine greater than 1.2 = 30 mEq For potassium level 3 mmol/L or less and Serum Creatinine greater than 1.2 = 40 mEq VESICANT (YELLOW) Infuse each 10 mEq over a minimum of 1 hour. potassium chloride IVPB 10 mEq/50 mL in water (0.2 mEq/mL premix)(Linked Group 6) 10 mEq, intravenous, at 50 mL/hr, Administer over 1 Hours, As needed, for potassium replacement, Starting on Sun06/15/23 at 2354, Administer Potassium Chloride IVPB in 10 mEq increments. Maximum infusion rates: Central Line = 20 mEq/hour. Administer via Central Line Only. If dose administered, recheck potassium level 1 hour after infusion complete. For potassium level 3.4 to 3.8 mmol/L and Serum Creatinine 1.2 or less = 30 mEq For potassium level 3.1 to 3.3 mmol/L and Serum Creatinine 1.2 or less = 40 mEq For potassium level 3 mmol/L or less and Serum Creatinine 1.2 or less = 50 mEq For potassium level 3.4 to 3.8 mmol/L and Serum Creatinine greater than 1.2 = 20 mEq For potassium level 3.1 to 3.3 mmol/L and Serum Creatinine greater than 1.2 = 30 mEq For potassium level 3 mmol/L or less and Serum Creatinine greater than 1.2 = 40 mEq VESICANT (YELLOW) prochlorperazine (COMPAZINE) injection 5 mg(Linked Group 7) 5 mg, intravenous, Every 6 hours PRN, nausea, vomiting, if patient unable to tolerate PO, Starting on Sun06/15/23 at 2359, When administered via IV Push, do not exceed 5 mg per minute prochlorperazine (COMPAZINE) injection 5 mg(Linked Group 7) 5 mg, intramuscular, Every 6 hours PRN, nausea, vomiting, if patient unable to tolerate PO and does not have IV access, Starting on Sun06/15/23 at 2359, When administered via IV Push, do not exceed 5 mg per minute prochlorperazine (COMPAZINE) tablet 5 mg(Linked Group 7) 5 mg, oral, Every 6 hours PRN, nausea, vomiting, Starting on Sun06/15/23 at 2359 sod phos di, mono-K phos mono (K-PHOS NEUTRAL) 250 mg tablet 2 tablet(Linked Group 8) 2 tablet, oral, As needed, for phosphorous level 2.3 mg/dL or less, Starting on Sun06/15/23 at 2354, If dose administered, recheck phosphorus level 4 hours after last dose. Look-alike/sound-alike medication - verify indication for use. Give with a full glass of water. sodium chloride 0.9 % infusion 10 mL/hr, intravenous, Continuous PRN, to maintain patency of lines, Starting on Sun06/15/23 at 2354, Line #1 sodium chloride 0.9 % infusion 10 mL/hr, intravenous, Continuous PRN, to maintain patency of lines, Starting on Sun06/15/23 at 2354, Line #2 sodium chloride 0.9 % infusion 10 mL/hr, intravenous, Continuous PRN, to maintain patency of lines, Starting on Sun06/15/23 at 2354, Line #3 0116 (New Bag - Provider: Benjy Sidhu RN)0118 (Paused - Provider: Elkin Sidhu RN)0128 (Restarted - Provider: Elkin Sidhu RN)0209 (Paused - Provider: Elkin Sidhu RN)0230 (Restarted - Provider: Elkin Sidhu RN)0231 (Paused - Provider: Elkin Sidhu RN)0433 (Restarted - Provider: Elkin Sidhu RN)0449 (Paused - Provider: Elkin Sidhu, RN)0519 (Restarted - Provider: Elkin Sidhu RN)0533 (Stop Bag - Provider: Elkin Sidhu RN) sodium phosphate 20 mmol in sodium chloride 0.9 % 100 mL IVPB(Linked Group 8) 20 mmol, intravenous, at 26.7 mL/hr, Administer over 4 Hours, As needed, for phosphorous level 2.3 mg/dL or less, Starting on Sun06/15/23 at 2354, Administer over 4 hours via dedicated line(central line). If administered, recheck phosphorus level 4 hours after infusion complete. Infuse using central line access. sodium phosphate 20 mmol in sodium chloride 0.9 % 250 mL IVPB(Linked Group 8) 20 mmol, intravenous, at 42.8 mL/hr, Administer over 6 Hours, As needed, for phosphorous level 2.3 mg/dL or less, Starting on Sun06/15/23 at 2354, Administer over 6 hours via dedicated line (peripheral line). If administered, recheck phosphorus level 4 hours after infusion complete. No Frequency Medication Order 06/15/2023 06/16/2023 06/17/2023 albuterol (PROVENTIL,VENTOLIN) 2.5 mg /3 mL (0.083 %) nebulizer solution - Pyxis Override Pull (COMPLETED) Starting on 06/16/23 at 0051, For 1 dose, Estephania Delgado: cabinet override 0100 (Given - Provider: Zach Delgado RCP) Linked Groups Order Group 1: piperacillin-tazobactam (ZOSYN) 4.5 g in sodium chloride 0.9 % 50 mL IVPB-MBP (COMPLETED)Jump to med 4.5 g, intravenous, at 100 mL/hr, Administer over 30 Minutes, Once, On 06/16/23 at 0300, For 1 dose, Loading dose per [facility] approved piperacillin-tazobactam policy. First dose of 3.375 gram to be 4 hours after 4.5 gram dose if frequency is every 8 hours or 8 hours after 4.5 gram dose if frequency is every 12 hours. ADD-VANTAGE/MBP- Discard 24 hours after activating; dissolve drug prior to administration, Indication: Sepsis Followed by piperacillin-tazobactam (ZOSYN) 3.375 g in sodium chloride 0.9 % 50 mL IVPB-MBP (CANCELED)Jump to med 3.375 g, intravenous, at 12.5 mL/hr, Administer over 4 Hours, Every 8 hours, First dose on 06/16/23 at 0700, Dose adjusted per [facility] approved piperacillin- tazobactam policy. First dose of 3.375 gram to be 4 hours after 4.5 gram dose if frequency is every 8 hours or 8 hours after 4.5 gram dose if frequency is every 12 hours. ADD-VANTAGE/MBP- Discard 24 hours after activating; dissolve drug prior to administration, Indication: Sepsis Group 2: sodium chloride 0.9 % bolus (COMPLETED)Jump to med 500 mL, intravenous, at 968 mL/hr, Administer over 31 Minutes, Once, On 06/16/23 at 0245, For 1 dose And sodium chloride 0.9 % bolus (COMPLETED)Jump to med 500 mL, intravenous, at 968 mL/hr, Administer over 31 Minutes, Once, On 06/16/23 at 0245, For 1 dose Group 3: calcium gluconate IVPB 1000 mg/50 mL (20 mg/mL premix)Jump to med 1,000 mg, intravenous, at 50 mL/hr, Administer over 60 Minutes, As needed, for ionized calcium level 3.5 to 4.4 mg/dL, Starting on Sun06/15/23 at 2354, Recheck ionized calcium 6 hours after infusion. Hold calcium replacement for phosphorus greater than 5.5 mg/dL. VESICANT (RED) Or calcium gluconate IVPB 2000 mg/100 mL (20 mg/mL premix)Jump to med 2,000 mg, intravenous, at 100 mL/hr, Administer over 60 Minutes, As needed, for ionized calcium level 3 to 3.4 mg/dL, Starting on Sun06/15/23 at 2354, Recheck ionized calcium 6 hours after infusion. Hold calcium replacement for phosphorus greater than 5.5 mg/dL. VESICANT (RED) Or calcium gluconate 3,000 mg in sodium chloride 0.9 % 100 mL IVPBJump to med 3,000 mg, intravenous, at 130 mL/hr, Administer over 60 Minutes, As needed, for ionized calcium level less than 3 mg/dL, Starting on Sun06/15/23 at 2354, CALL PHYSICIAN if this dose is administered. Recheck ionized calcium 6 hours after infusion. Hold calcium replacement for phosphorus greater than 5.5 mg/dL. VESICANT (RED) Group 4: magnesium sulfate IVPB 2000 mg/50 mL in iso-osmotic water (40 mg/mL premix)Jump to med 2,000 mg, intravenous, at 25 mL/hr, Administer over 120 Minutes, As needed, for magnesium level 1.7 to 1.9 mg/dL or ionized magnesium level 0.45 to 0.5 mmol/L, Starting on Sun06/15/23 at 2354, Use premix solution. Default to ionized magnesium level in cases where patient has both magnesium and ionized magnesium results. If administered, check ionized magnesium (or total magnesium if ionized magnesium unavailable) level 4 hours after infusion. Or magnesium sulfate IVPB 4000 mg/100 mL in iso-osmotic water (40 mg/mL premix)Jump to med 4,000 mg, intravenous, at 25 mL/hr, Administer over 240 Minutes, As needed, for magnesium level 1.6 mg/mL or less, or ionized magnesium level 0.44 mmol/L or less, Starting on Sun06/15/23 at 2354, Use premix solution. Default to ionized magnesium level in cases where patient has both magnesium and ionized magnesium results. If administered, check ionized magnesium (or total magnesium if ionized magnesium unavailable) level 4 hours after infusion. Group 5: potassium chloride (K-TAB,KLOR-CON) CR tablet 20-50 mEqJump to med 20-50 mEq, oral, As needed, for potassium replacement, Starting on Sun06/15/23 at 2354, Progress to oral potassium replacement when patient tolerating oral intake. If dose administered, recheck potassium level 4 hours after last dose. For potassium level 3.4 to 3.8 mmol/L and Serum Creatinine 1.2 or less=30 mEq. For potassium level 3.1 to 3.3 mmol/L and Serum Creatinine 1.2 or less=40 mEq. For potassium level 3 mmol/L or less and Serum Creatinine 1.2 or less=50 mEq. For potassium level 3.4 to 3.8 mmol/L and Serum Creatinine greater than 1.2=20 mEq. For potassium level 3.1 to 3.3 mmol/L and Serum Creatinine greater than 1.2=30 mEq. For potassium level 3 mmol/L or less and Serum Creatinine greater than 1.2=40 mEq. Do not crush or chew. Or potassium chloride (KAYCIEL) 20 mEq/15 mL solution 20-50 mEqJump to med 20-50 mEq, oral, As needed, potassium replacement, Starting on Sun06/15/23 at 2354, Progress to oral potassium replacement when patient tolerating oral intake. If dose administered, recheck potassium level 4 hours after last dose. For potassium level 3.4 to 3.8 mmol/L and Serum Creatinine 1.2 or less=30 mEq (22.5mL). For potassium level 3.1 to 3.3 mmol/L and Serum Creatinine 1.2 or less=40 mEq (30mL). For potassium level 3 mmol/L or less and Serum Creatinine 1.2 or less=50 mEq (37.5mL). For potassium level 3.4 to 3.8 mmol/L and Serum Creatinine greater than 1.2=20 mEq (15mL). For potassium level 3.1 to 3.3 mmol/L and Serum Creatinine greater than 1.2=30 mEq (22.5mL). For potassium level 3 mmol/L or less and Serum Creatinine greater than 1.2=40 mEq (30mL). Must dilute before use - Mix in 3-8 ounces of water or juice before administration When administering in feeding tube, flush before and after per policy and monitor potassium levels Group 6: potassium chloride IVPB 10 mEq/50 mL in water (0.2 mEq/mL premix)Jump to med 10 mEq, intravenous, at 50 mL/hr, Administer over 1 Hours, As needed, for potassium replacement, Starting on Sun06/15/23 at 2354, Administer Potassium Chloride IVPB in 10 mEq increments. Maximum infusion rates: Central Line = 20 mEq/hour. Administer via Central Line Only. If dose administered, recheck potassium level 1 hour after infusion complete. For potassium level 3.4 to 3.8 mmol/L and Serum Creatinine 1.2 or less = 30 mEq For potassium level 3.1 to 3.3 mmol/L and Serum Creatinine 1.2 or less = 40 mEq For potassium level 3 mmol/L or less and Serum Creatinine 1.2 or less = 50 mEq For potassium level 3.4 to 3.8 mmol/L and Serum Creatinine greater than 1.2 = 20 mEq For potassium level 3.1 to 3.3 mmol/L and Serum Creatinine greater than 1.2 = 30 mEq For potassium level 3 mmol/L or less and Serum Creatinine greater than 1.2 = 40 mEq VESICANT (YELLOW) Or potassium chloride IVPB 10 mEq/100 mL in water (0.1 mEq/mL premix)Jump to med 10 mEq, intravenous, at 100 mL/hr, Administer over 60 Minutes, As needed, for potassium replacement, Starting on Sun06/15/23 at 2354, Administer Potassium Chloride IVPB in 10 mEq increments. Maximum infusion rates: Central Line = 20 mEq/hour; Peripheral Line = 10 mEq/hour (10 mEq/100 mL). If dose administered, recheck potassium level 1 hour after infusion complete. For potassium level 3.4 to 3.8 mmol/L and Serum Creatinine 1.2 or less = 30 mEq For potassium level 3.1 to 3.3 mmol/L and Serum Creatinine 1.2 or less = 40 mEq For potassium level 3 mmol/L or less and Serum Creatinine 1.2 or less = 50 mEq For potassium level 3.4 to 3.8 mmol/L and Serum Creatinine greater than 1.2 = 20 mEq For potassium level 3.1 to 3.3 mmol/L and Serum Creatinine greater than 1.2 = 30 mEq For potassium level 3 mmol/L or less and Serum Creatinine greater than 1.2 = 40 mEq VESICANT (YELLOW) Infuse each 10 mEq over a minimum of 1 hour. Group 7: prochlorperazine (COMPAZINE) tablet 5 mgJump to med 5 mg, oral, Every 6 hours PRN, nausea, vomiting, Starting on Sun06/15/23 at 2359 Or prochlorperazine (COMPAZINE) injection 5 mgJump to med 5 mg, intravenous, Every 6 hours PRN, nausea, vomiting, if patient unable to tolerate PO, Starting on Sun06/15/23 at 2359, When administered via IV Push, do not exceed 5 mg per minute Or prochlorperazine (COMPAZINE) injection 5 mgJump to med 5 mg, intramuscular, Every 6 hours PRN, nausea, vomiting, if patient unable to tolerate PO and does not have IV access, Starting on Sun06/15/23 at 2359, When administered via IV Push, do not exceed 5 mg per minute Group 8: sodium phosphate 20 mmol in sodium chloride 0.9 % 250 mL IVPBJump to med 20 mmol, intravenous, at 42.8 mL/hr, Administer over 6 Hours, As needed, for phosphorous level 2.3 mg/dL or less, Starting on Sun06/15/23 at 2354, Administer over 6 hours via dedicated line (peripheral line). If administered, recheck phosphorus level 4 hours after infusion complete. Or sodium phosphate 20 mmol in sodium chloride 0.9 % 100 mL IVPBJump to med 20 mmol, intravenous, at 26.7 mL/hr, Administer over 4 Hours, As needed, for phosphorous level 2.3 mg/dL or less, Starting on Sun06/15/23 at 2354, Administer over 4 hours via dedicated line(central line). If administered, recheck phosphorus level 4 hours after infusion complete. Infuse using central line access. Or sod phos di, mono-K phos mono (K-PHOS NEUTRAL) 250 mg tablet 2 tabletJump to med 2 tablet, oral, As needed, for phosphorous level 2.3 mg/dL or less, Starting on Sun06/15/23 at 2354, If dose administered, recheck phosphorus level 4 hours after last dose. Look-alike/sound-alike medication - verify indication for use. Give with a full glass of water. FOR RECORDS PERTAINING TO PATIENTS WHO ARE OR HAVE BEEN ENROLLED IN A CHEMICAL DEPENDENCY/SUBSTANCEABUSE PROGRAM, SOME INFORMATION MAY BE OMITTED. This clinical summary was aggregated from multiple sources. Caution should be exercised in using it in the provision of clinical care. This summary normalizes information from multiple sources, and as a consequence, information in this document may materially change the coding, format and clinical context of patient data. In addition, data may be omitted in some cases. CLINICAL DECISIONS SHOULD BE BASED ON THE PRIMARY CLINICAL RECORDS. [employer] provides no warranty or guarantee of the accuracy or completeness of information in this document.
--- NOTE | 2024-12-09 01:23 | ECG_ITS ---
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
--- NOTE | 2024-12-09 01:35 | ED_ITS ---
HPI HPI - General Adult General Chief complaint: Recheck/Abnormal Lab/Rx Stated complaint: DIABETIC/ DOESN'T HAVE HIS INSULIN PUMP Time Seen by Provider: 12/09/24 01:12 Source: patient Mode of arrival: walk-in Limitations: no limitations History of Present Illness HPI narrative: This 39-year-old male who is a type I diabetic presents for evaluation. The patient lives in [place] and left home today to come to [place] to [place] the [employer] and forgot his insulin pump. He states it is only been 8 hours since he had his insulin pump but is extremely anxious that [facility] The patient's called him when she noticed that he did not have his insulin pump and is on his way to [place] to bring it to him. Since then he has become extremely anxious. He states he feels like his heart is going to pound out of his chest. He states on the way here he started feeling nauseated and had an episode of emesis in the parking lot. He is having some degree of dry mouth but no polyuria or polydipsia. He does not drink or smoke. He states he got distracted when getting out of the shower today which is when he typically replaces his insulin pump and left the house without putting it on. Is not having any abdominal pain at this time and states he feels better after 1 episode of emesis. Accu-Chek done upon arrival was 441. Related Data Home Medications ?Medication ?Instructions ?Recorded ?Confirmed insulin aspart U-100 100 unit/mL See Rx Instructions c ontinuous 04/24/23 04/25/23 subcutaneous solution (Novolog subcutaneous infusion Q 6H U-100 Insulin aspart) hyperglycemia Allergies Allergy/AdvReac Type Severity Reaction Status Date / Time No Known Drug Allergies Allergy Verified 12/09/24 01:17 Review of Systems ROS Status of ROS 10 or more systems reviewed and unremark able except as noted in history and below [facility] Medical History (Updated 12/09/24 @ 02:16 by Cyndee Ricci MD) DM (diabetes mellitus) type 1 with ketoacidosis ?E10.10 - Type 1 diabetes mellitus with ketoacidosis without coma (ICD-10) DKA (diabetic ketoacidosis) ?E11.10 - Type 2 diabetes mellitus with ketoacidosis without coma (ICD-10) Depression ?F32.A - Depression, unspecified (ICD-10) Type 1 diabetes mellitus ?E10.9 - Type 1 diabetes mellitus without complications (ICD-10) Social History (Updated 04/24/23 @ 22:48 by Sarah Beth Cardenas) Within the past year, how often did you have a drink containing alcohol: monthly or less Within the past year, how many standard drinks containing alcohol did you have on a typical day: 1 or 2 Within the past year, how often did you have six or more drinks on one occasion: never Total score: 0 Score interpretation: A score less than 4 is consistent with normal alcohol consumption. Smoking status: Never smoker Non-prescribed substance use: denies use Previous occupational history: [employer] Highest level of school completed/degree received: some college, no degree Are you now , , , , never or living with a partner: In a typical week, how many times do you talk on the telephone with family, friends, or neighbors: 3 or more times per week How often do you get together with friends or relatives: once per week How often do you attend rastafarian or mandaeism services: never Do you belong to any clubs or organizations such as rastafarian groups unions, [employer] or athletic groups, or school groups: no Total score: 2 Score interpretation: A score of greater than or equal to 2 indicates the lowest level of social isolation. Little interest or pleasure in doing things: not at all Feeling down, depressed, or hopeless: not at all Feel stressed/tense/nervous/anxious/difficulty sleeping: not at all Do you think of yourself as: straight/heterosexual Gender Identity: male Exam Narrative Exam Narrative: Vital signs and Nursing Notes reviewed: Patient is afebrile, tachycardic with a pulse of 114, blood pressure is mildly elevated at 131/79, he is not hypoxic with pulse ox of 96% on room air General: Awake, alert, oriented, anxious, tremulous adult male, no respiratory distress HEENT: Normocephalic atraumatic, mucous membranes are pink and slightly dry Neck: Supple, no meningeal signs, no anterior or posterior cervical lymphadenopathy Chest: Lungs are clear to auscultation with good air entry, there is no wheezing rhonchi or rales appreciated no accessory muscle use, patient is speaking in complete sentences-no chest wall tenderness to palpation CVS: Regular rate and rhythm S1-S2, cardiac at 114 at triage no murmurs rubs or gallops, pulses are brisk and equal bilaterally ABD: Soft, nondistended, nontender, no rebound guarding or rigidity, bowel sounds are normal, no pulsatile masses appreciated Extremities: Moving all extremities, no lower extremity tenderness or swelling noted, negative Homans' sign, pulses are brisk and equal bilaterally-patient denies any foot infections Skin: Normal in appearance without rash,pallor, petechiae or purpura Neuro: No focal deficits Constitutional Vital Signs, click to edit/add: Last Vital Signs Temp 97.8 F 12/09/24 01:25 Pulse 114 H 12/09/24 01:25 Resp 20 12/09/24 01:25 BP 131/79 12/09/24 01:25 Pulse Ox 96 12/09/24 01:25 O2 Del Method Room Air 12/09/24 01:25 Course Vital Signs Vital signs: Vital Signs Temperature 97.8 F 12/09/24 01:25 Pulse Rate 114 H 12/09/24 01:25 Respiratory Rate 20 12/09/24 01:25 Blood Pressure 131/79 12/09/24 01:25 Pulse Oximetry 96 12/09/24 01:25 Oxygen Delivery Method Room Air 12/09/24 01:25 Temperature 97.8 F 12/09/24 01:25 Pulse Rate 114 H 12/09/24 01:25 Respiratory Rate 20 12/09/24 01:25 Blood Pressure 131/79 12/09/24 01:25 Pulse Oximetry 96 12/09/24 01:25 Oxygen Delivery Method Room Air 12/09/24 01:25 Medical Decision Making MDM Narrative Medical decision making narrative: This 39-year-old male with a history of type 1 diabetes presents for evaluation. The patient lives in [place] and works in [employer] on the [employer]. He got distracted when getting ready for work yesterday and left home without his insulin pump. After getting to work in [place] his contacted him on his personal phone and work phone to tell him that he had forgotten his insulin pump. He was feeling fine at that time and had decided he was going to head back to [place] to go home and get his pump when he started to get extremely anxious and nauseated. He was afraid he was going to go into DKA. He has not been in DKA in an extended period of time since taking his diabetes seriously and having an insulin pump. He has been in this emergency department several times in DKA. He was feeling fine before realizing he does not have his insulin pump. Upon arrival he had an episode of emesis in the parking lot. Upon arrival he was tremulous and extremely anxious. An Accu-Chek was performed that was 441. He is not having any abdominal pain, cramping or excessive nausea and vomiting. An EKG done upon arrival is a sinus tachycardia 113 bpm. An IV was placed and he was medicated with IV fluids and Zofran as well as 8 units of IV insulin. Routine labs were ordered. His white count is elevated at 16.4 with a stable hemoglobin. Sodium is mildly low at 131 when corrected for his hyperglycemia it is 137-140. BUN and creatinine are mildly elevated at 23 and 1.29. Bicarb is normal at 26. Acetone is small. Liver function test and troponin are normal. The results of the labs were discussed with the patient. I explained to him that I do not feel that he is in DKA although he does have hyperglycemia. The patient's will be coming to the emergency department to deliver his insulin pump to him and he will be discharged with her. He plans to go back to [place] and she will bring him back to [place] tomorrow or the next time he has to work. After the patient's arrived he reconnected his insulin pump. He is much calmer at this time. Repeat accucheck was 281 on patients insulin pump. He will be discharged home with his at this time. Lab Data Lab results reviewed: Yes I reviewed the patient's lab results Labs: Lab Results 12/09/24 12/09/24 Range/Units 01:15 01:25 WBC 16.4 H (4.0-11.0) 10^3/uL RBC 4.78 (4.70-6.10) 10^6/uL Hgb 13.8 L (14.0-18.0) g/dL Hct 41.7 L (42.0-54.0) % MCV 87.2 (80.0-94.0) fL MCH 28.9 (25.9-34.0) pg MCHC 33.1 (29.9-35.2) g/dL RDW 11.7 (11.0-15.0) % Plt Count 263 (150-450) 10^3/uL MPV 11.9 (9.5-13.5) fL Neut % (Auto) 77.4 H (43.0-75.0) % Lymph % (Auto) 14.6 L (20.5-60.0) % Calvert % (Auto) 6.8 (1.7-12.0) % Eos % (Auto) 0.4 L (0.9-7.0) % Baso % (Auto) 0.4 (0.2-2.0) % Neut # (Auto) 12.7 H (1.4-6.5) 10^3/uL Lymph # (Auto) 2.4 (1.2-3.8) 10^3/uL Calvert # (Auto) 1.1 H (0.3-0.8) 10^3/uL Eos # (Auto) 0.1 (0.0-0.7) 10^3/uL Baso # (Auto) 0.1 (0.0-0.1) 10^3/uL Abs Immat Gran (auto) 0.06 H (0.00-0.03) 10^3/uL Imm/Tot Granulo (auto) 0.4 (0.0-0.5) % Sodium 131 L (136-145) mmol/L Potassium 5.0 (3.5-5.1) mmol/L Chloride 96 L (98-107) mmol/L Carbon Dioxide 26.6 (21.0-32.0) mmol/L Anion Gap 13.4 BUN 23.0 H (7.0-18.0) mg/dL Creatinine 1.29 (0.70-1.30) mg/dL Est GFR ( Amer) >60 (>=60 mL/min/1.73m^2) Est GFR (Non-Af Amer) >60 (>=60 mL/min/1.73m^2) BUN/Creatinine Ratio 17.8 Glucose 459 H (74-106) mg/dL Calcium 9.3 (8.5-10.1) mg/dL Total Bilirubin 1.0 (0.2-1.0) mg/dL AST 21 (15-37) U/L ALT 26 (16-63) U/L Alkaline Phosphatase 67 (46-116) U/L Troponin I High Sens 4.3 (4.0-76.1) pg/mL Total Protein 7.5 (6.4-8.2) g/dL Albumin 4.0 (3.4-5.0) g/dL Globulin 3.5 g/dL Albumin/Globulin Ratio 1.1 Acetone, Qual Small A (NEGATIVE) POC Glucose 441 H (74-106) mg/dL ECG Data Attestation: I personally reviewed and interpreted this ECG as follows: (Sinus tachycardia at 113 bpm, normal axis, short WV interval at 112 ms, no acute ST segment elevation or T wave inversion) Discharge Plan Discharge Chief Complaint: Recheck/Abnormal Lab/Rx Clinical Impression: Hyperglycemia due to type 1 diabetes mellitus Prescriptions / Home Meds: No Action insulin aspart U-100 [Novolog U-100 Insulin aspart] 100 unit/mL solution See Rx Instructions continuous subcutaneous infusion Q6H Rx Instructions: up to 100 units daily via continuous subcutaneous infusion every 6 hours; Print Language: Swedish Referrals: Physician,Non-Staff, MD [Primary Care Provider] - 1 week
[2024-12-09 01:37] LABS: Hematocrit 41.7 % (42.0-54.0); Hemoglobin 13.8 g/dL (14.0-18.0); Immature Granulocytes Abs Auto 0.06 10^3/uL (0.00-0.03); Immature Granulocytes Pct Auto 0.4 % (0.0-0.5); Lymphocytes Absolute Auto 2.4 10^3/uL (1.2-3.8); Mean Corpuscular HGB Conc 33.1 g/dL (29.9-35.2); Mean Corpuscular Hemoglobin 28.9 pg (25.9-34.0); Mean Corpuscular Volume 87.2 fL (80.0-94.0); Platelet Count 263 10^3/uL (150-450); Red Blood Count 4.78 10^6/uL (4.70-6.10); White Blood Count 16.4 10^3/uL (4.0-11.0)
[2024-12-09 01:52] LABS: Alanine Aminotransferase 26 U/L (16-63); Albumin Globulin Ratio 1.1; Albumin Level 4.0 g/dL (3.4-5.0); Alkaline Phosphatase 67 U/L (46-116); Anion Gap 13.4; Aspartate Amino Transferase 21 U/L (15-37); Blood Urea Nitrogen 23.0 mg/dL (7.0-18.0); Calcium 9.3 mg/dL (8.5-10.1); Carbon Dioxide 26.6 mmol/L (21.0-32.0); Chloride 96 mmol/L (98-107); Estimated GFR (African America >60 (>=60 mL/min/1.73m^2); Estimated GFR (Non-African Ame >60 (>=60 mL/min/1.73m^2); Globulin 3.5 g/dL; Glucose 459 mg/dL (74-106); Potassium 5.0 mmol/L (3.5-5.1); Sodium 131 mmol/L (136-145); Total Protein 7.5 g/dL (6.4-8.2)
[2024-12-09] MEDS: 0.9 % SODIUM CHLORIDE 1,000 ML 1000 ML IV (01:56)
[2024-12-09] MEDS: INSULIN REGULAR, HUMAN (100 UNIT/ML) 10 ML MDV 8 UNIT IV (01:57)
== END 2024-12-09 03:17 | disposition home or self-care (01) ==
PROVIDERS: Emergency Provider Emergency Medicine
DX: E10.65 Type 1 diabetes mellitus with hyperglycemia (principal); R11.2 Nausea with vomiting, unspecified; F41.8 Other specified anxiety disorders
CPT/HCPCS: 36415; 80053; 82009; 84484; 85025; 93005; 96374; 99284; J1817; J2405